=== PATIENT | female | born 1975 | race Caucasian/White ===

== ENCOUNTER 2019-01-24 17:38 | Outpatient (RCR) | payer MEDICARE, MEDICAID, SELFPAY ==
--- NOTE | 2019-03-27 17:23 | PCPTNOTE ---
03/27/19 -patient has not been to therapy in several weeks. as of this date, patient will be dc'd from skilled PT services and all progress toward goals will be taken from their most recent evaluation/note. BERTHA
== END 2019-04-24 23:59 | disposition home or self-care (01) ==
LOC: CHSPT 17:38
PROVIDERS: Visit Provider Internal Medicine Infectious Disease
DX: Z53.8 Procedure and treatment not carried out for other reasons (principal)
CPT/HCPCS: 99199

== ENCOUNTER 2019-05-23 11:31 | Emergency (ER) | payer MEDICARE, MEDICAID, SELFPAY ==
--- NOTE | ~2019-05-23 | CT_ITS ---
EXAMINATION: CT brain wo con EXAM DATE: 05/23/2019 12:42 INDICATION: Right hemiparesis. Dizziness. TECHNIQUE: Spiral CT of the head was performed without contrast. Axial, coronal and sagittal images were reviewed. The dose-length product (DLP) for this examination was 605.33 mGy-cm. The exposure w as tailored according to patient size, and iterative reconstruction (ASIR) was used as additional dos e reduction technique. Comparison is made to prior examination from 12/08/2015. FINDINGS: There is no acute intraparenchymal hemorrhage. No evidence of intraparenchymal brain mass lesion. No evidence of acute infarction. There is no mass effect or midline shift. The ventricles are normal in size. There are no extra-axial collections. There are no acute calvarial fractures. T he orbits are unremarkable. Soft tissue is unremarkable. The visualized sinuses and mastoid air romel ls are well aerated. IMPRESSION: 1. No acute intracranial findings. Reviewed, dictated and finalized at location B. ATION ASSISTANT
[2019-05-23 11:49] VITALS: BP 155/94; PULSE 95; RESP 20; TEMP 36.8; O2SAT 95
[2019-05-23 11:51] LABS: Add Urine Microscopic? NO; Appearance Urine Clear (Clear); Bilirubin Urine Negative (Negative); Blood Urine Negative (Negative); Color Urine Yellow (Yellow); Glucose Urine UA Negative (Negative); Ketones Urine Negative (Negative); Leukocyte Esterase Ur Negative LEU/UL (Negative); Nitrate Urine Negative (Negative); Protein Urine Negative (Negative); Specific Grav Ur <= 1.005 (1.010-1.020); Urobilinogen Urine 0.2 mg/dL (0.2-1.0); pH Urine 5.5 (5.0-8.0)
[2019-05-23 11:56] LABS: Glucose Point of Care 97 (65-105)
--- NOTE | 2019-05-23 12:13 | ED.NEUROSD ---
HPI - Neuro Symptoms/Deficit General Chief Complaint: Neuro Symptoms/Deficit Stated Complaint: Think she has had a TIA this morning Time Seen by Provider: 05/23/19 12:14 Source: patient and RN notes reviewed Mode of arrival: ambulatory Limitations: no limitations History of Present Illness HPI Narrative: 43-year-old female presents with 3 hour history of right-sided weakness and thickening of her tongue. She said she also had some dizziness but no change in vision. She had similar episode 1 year ago and was seen by neurologist in [place]. She says she does not remember the workup that she had at that time but they told her she did not have seizures. Onset (ago): hour(s) (3) Time: 09:00 Location: right face, right arm and right leg History of same: Yes Severity: mild Quality: weak, numb, tingling and intermittent Relieving factors: none Exacerbating factors: none Context: gradual onset On Anticoagulants: No Associated symptoms: denies other symptoms Treatments Prior to Arrival: none Related Data Home Medications Medication Instructions Recorded Confirmed aripiprazole 10 mg PO DAILY 03/21/19 05/23/19 atorvastatin 40 mg PO DAILY 03/21/19 05/23/19 metformin 500 mg PO DAILY 03/21/19 05/23/19 prazosin 2 mg PO HS 03/21/19 05/23/19 topiramate 100 mg PO HS 03/21/19 05/23/19 hydrocodone-acetaminophen 1 tablet PO Q6H PRN 05/23/19 05/23/19 Allergies Allergy/AdvReac Type Severity Reaction Status Date / Time No Known Allergies Allergy Unverified 05/28/16 21:52 Review of Systems Review of Systems: All systems reviewed & are unremarkable except as noted in HPI and below PMFSH Past Medical History Medical History (Updated 05/23/19 @ 18:33 by Elias Rodriguez MD) Affective bipolar disorder HLD (hyperlipidemia) Surgical History Surgical History (Updated 05/23/19 @ 18:28 by Elias Rodriguez MD) H/O inguinal hernia repair H/O: hysterectomy History of appendectomy Hx of rotator cuff surgery Hx of tonsillectomy Course Course Emergency Course: I discussed that patient's findings and presentation with Dr. Silverio, neurologist in [place]. He recommended with negative workup in the emergency room and his prior workup consisting of carotid Dopplers and MRI of the brain which were both normal that she follow-up with her primary care physician. Vital Signs Vital signs: Vital Signs Temperature 36.8 C 05/23/19 11:49 Pulse Rate 95 05/23/19 11:49 Respiratory Rate 20 05/23/19 11:49 Blood Pressure 155/94 H 05/23/19 11:49 Pulse Oximetry 95 05/23/19 11:49 Temperature 36.8 C 05/23/19 11:49 Pulse Rate 76 05/23/19 14:12 Respiratory Rate 19 05/23/19 14:32 Blood Pressure 142/84 H 05/23/19 14:32 Pulse Oximetry 98 05/23/19 14:12 MDM - Neuro Symptoms/Deficit Lab Data Result diagrams: 05/23/19 12:39 05/23/19 12:39 Labs: Lab Results 05/23/19 05/23/19 05/23/19 Range/Units 11:46 11:54 12:39 WBC (4.8-10.8) K/mm3 RBC (4.20-5.40) M/mm3 Hgb (12.0-15.0) g/dL Hct (35.0-49.0) % MCV (78.0-102.0) fL MCH (27.0-31.0) pg MCHC (32.0-36.0) g/dL RDW (11.6-14.4) % Plt Count (150-420) K/mm3 MPV (9.2-11.8) fl Immature Gran % (Auto) (0.0-0.0) % Neut % (Auto) (50.0-70.0) % Lymph % (Auto) (18.0-42.0) % Barber % (Auto) (2.0-11.0) % Eos % (Auto) (1.0-6.0) % Baso % (Auto) (0.0-1.0) % Lymph # (Auto) (1.10-4.50) K/mm3 Barber # (Auto) (0.10-0.90) K/mm3 Eos # (Auto) (0.02-0.50) K/mm3 Baso # (Auto) (0.00-0.10) K/mm3 Abs Immat Gran (auto) (0.00-0.00) K/mm3 Absolute Neuts (auto) (1.7-7.2) K/mm3 Absolute Nucleated RBC (0.00-0.00) K/mm3 Nucleated RBC % (0-0.0) % Sodium (136-145) mmol/L Potassium (3.5-5.1) mmol/L Chloride (98-108) mmol/L Carbon Dioxide (21-32) mmol/L Anion Gap (7-16) mmol/L BUN (7-18) mg/dL Creatinine (0.55-1.02)
[2019-05-23 12:48] LABS: Basophils Absolute Auto 0.06 K/mm3 (0.00-0.10); Basophils Percent Auto 0.6 % (0.0-1.0); Eosinophils Absolute Auto 0.27 K/mm3 (0.02-0.50); Eosinophils Percent Auto 2.8 % (1.0-6.0); Hematocrit 43.1 % (35.0-49.0); Hemoglobin 14.7 g/dL (12.0-15.0); Immature Granulocyte Absolute 0.06 K/mm3 (0.00-0.00); Immature Granulocyte Percent A 0.6 % (0.0-0.0); Lymphocytes Absolute Auto 3.26 K/mm3 (1.10-4.50); Lymphocytes Percent Auto 33.7 % (18.0-42.0); Mean Corpuscular HGB Conc 34.1 g/dL (32.0-36.0); Mean Corpuscular Hemoglobin 29.3 pg (27.0-31.0); Mean Corpuscular Volume 85.9 fL (78.0-102.0); Mean Platelet Volume 10.4 fl (9.2-11.8); Monocytes Absolute Auto 0.52 K/mm3 (0.10-0.90); Monocytes Percent Auto 5.4 % (2.0-11.0); Neutrophils Absolute Auto 5.5 K/mm3 (1.7-7.2); Neutrophils Percent Auto 56.9 % (50.0-70.0); Platelet Count Result 301 K/mm3 (150-420); Red Blood Count 5.02 M/mm3 (4.20-5.40); Red Cell Distribution Width 13.5 % (11.6-14.4); White Blood Count 9.7 K/mm3 (4.8-10.8)
[2019-05-23 13:15] LABS: Alanine Aminotransferase 29 U/L (14-59); Albumin Level 3.7 g/dL (3.4-5.0); Alkaline Phosphatase 87 U/L (46-116); Anion Gap 15.9 mmol/L (7-16); Aspartate Amino Transferase 16 U/L (15-37); Bilirubin,Total 0.5 mg/dL (0.00-1.00); Blood Urea Nitrogen 8 mg/dL (7-18); Calcium 9.4 mg/dL (8.5-10.1); Carbon Dioxide 24 mmol/L (21-32); Chloride 106 mmol/L (98-108); Estimated Glomerular Filt Rate > 60; Glucose 90 mg/dL (70-99); Osmolality Calculated 292 mOsm/kg (285-295); Potassium 3.9 mmol/L (3.5-5.1); Sodium 142 mmol/L (136-145); Total Protein 7.5 g/dL (6.4-8.2)
[2019-05-23 13:17] LABS: Thyroid Stimulating Hormone 1.74 uIU/mL (0.36-3.74)
--- NOTE | 2019-05-23 14:01 | PC.NURSE ---
DR GARNER, NEUROLOGY CALLED FOR CONSULT
[2019-05-23] MEDS: ASPIRIN 81 MG CHEWABLE TABLET 324 MG PO (14:05)
[2019-05-23 14:12] VITALS: BP 157/88; PULSE 76; O2SAT 98
[2019-05-23 14:32] VITALS: BP 142/84; RESP 19
== END 2019-05-23 14:33 | disposition home or self-care (01) ==
PROVIDERS: Emergency Provider Emergency Medicine
DX: R20.2 Paresthesia of skin (principal); E78.5 Hyperlipidemia, unspecified
CPT/HCPCS: 36415; 70450; 80053; 81003; 84443; 85025; 99283; 99284; A9270

== ENCOUNTER 2019-05-28 08:06 | Outpatient (RCR) | payer MEDICARE, MEDICAID, SELFPAY ==
--- NOTE | 2019-05-28 07:44 | PTOPEVAL ---
Thank you for referring this patient to [facility]. Please review, sign, date and return this plan of care [facility]. I agree with and certify that the following plan of care is medically necessary. Referring Physician Date Admitting Provider: Attending Provider: Emile Chacon, Referring Provider: *PT Outpatient Evaluation Start: 05/28/19 07:05 Freq: Status: Active Protocol: Document 05/28/19 07:[address] [facility] (Rec: 05/28/19 07:[address] [facility] [id number]) Therapy Assessment Status Assessment Status Assessment Status Evaluation Outpatient Past Medical History Neurological History Hx Transient Ischemic Attacks (TIA) Yes Cardiovascular History Hx Hypercholesterolemia Yes Gastrointestinal History Hx Appendectomy Yes Hx Hernia Yes Musculoskeletal History Hx Orthopedic Surgery Yes: LEFT ROTATOR CUFF HEENT History Hx Tonsillectomy Yes Reproductive History Hx Hysterectomy Yes Psychosocial History Hx Bipolar Disorder Yes Evaluation Information Problem Diagnosis s/p L RTC repair Onset 03/26/19 Additional Evaluation Detail quick dash = Subjective Information patient reports she has been Query Text:As Reported By Patient/ having pain in the L shoulder Family since summer of last year. she reports she had a rotator cuff repair of the L shoulder in March of this year. she reports she is still having a small amount of pain, but is improved since her surgery. she reports she is unable to reach behind her back, getting dressed, reaching for objects , lifting overhead. she reports she is on a 2-3lb lifting restriction. Prior Level of Function Comments Additional Prior Level of Function prior to surgery, she was Comments unable to reach behind her back, get dressed, or reach overhead due to pain and weakness in the L shoulder. Pain Assessment Timing of Pain Assessment Timing of Pain Assessment Assessment Pain Scale Pain Scale Used Numeric (1 - 10) Self Report Pain Assessment Left Shoulder(s) Reported Pain Level 5 Pain Description Dull Pain Frequency Acute,Continuous Current Pain Intensity 5 Lowest Pain Intensity 3 Greatest Pain Intensity
--- NOTE | 2019-05-29 09:13 | PCPTNOTE ---
05/29/19 - patient called and cancelled therapy this date due to feeling ill. VaughnTF
--- NOTE | 2019-06-02 07:57 | PCPTNOTE ---
patient called and cancelled appt for today. VAZQUEZ
--- NOTE | 2019-07-09 13:35 | PTOPEVAL ---
Thank you for referring Soumya Fuller to [facility]. Please review, sign, date and return this plan of care MATTHEW. I agree with and certify that the following plan of care is medically necessary. Referring Physician Date Admitting Provider: Attending Provider: Emile Chacon, Referring Provider: *PT Outpatient Evaluation Start: 05/28/19 07:05 Freq: Status: Active Protocol: Document 07/09/19 13:24 [facility] (Rec: 07/09/19 13:35 [facility] [email or web address]) Therapy Assessment Status Assessment Status Assessment Status Re-evaluation Outpatient Past Medical History Neurological History Hx Transient Ischemic Attacks (TIA) Yes Cardiovascular History Hx Hypercholesterolemia Yes Gastrointestinal History Hx Appendectomy Yes Hx Hernia Yes Musculoskeletal History Hx Orthopedic Surgery Yes: LEFT ROTATOR CUFF HEENT History Hx Tonsillectomy Yes Reproductive History Hx Hysterectomy Yes Psychosocial History Hx Bipolar Disorder Yes Evaluation Information Problem Diagnosis s/p left RTC repair Onset 03/26/19 Subjective Information Pt. reports that she can now Query Text:As Reported By Patient/ reach behind her back and wash Family her hair. She reports that nights are becoming more comfortable and she has decreased pain overall. She reports that she still notes that she is weak. she has trouble pouring a glass of tea or lifting items overhead or into the refidgerator. She reports that she would like to continue treatment focusing on strength. Pain Assessment Pain Scale Pain Scale Used Numeric (1 - 10) Self Report Pain Assessment Left Shoulder(s) Reported Pain Level 2 Lowest Pain Intensity 2 Greatest Pain Intensity 6 Pain Score Pain Score 2: Self Report Upper Extremity Range of Motion General Upper Extremity Range of Motion Gross Upper Extremity Range of Motion 138 degrees active left Comments shoulder flexion against gravity Pt. is able to reach the occiput with the left u.e. and reach to the upper lumbar region with combined extension and IR of the left shoulder. Upper Extremity Muscle Strength Testing General Upper
== END 2019-08-06 14:31 | disposition home or self-care (01) ==
LOC: CHSPT 08:06
PROVIDERS: PCP Family Medicine; Visit Provider Orthopaedic Surgery
DX: Z48.89 Encounter for other specified surgical aftercare (principal); S46.012D Strain of muscle(s) and tendon(s) of the rotator cuff of left shoulder, subsequent encounter
CPT/HCPCS: 97014; 97110; 97161; 97530; G0283

== ENCOUNTER 2019-10-07 08:25 | Outpatient (CLI) | payer MEDICARE, MEDICAID, SELFPAY ==
--- NOTE | ~2019-10-07 | MM_ITS ---
EXAMINATION: MM screening mariano BI w gaurang HISTORY: Screening mammogram, family history of breast cancer in her mother. TECHNIQUE: Craniocaudal and mediolateral oblique 3-D tomosynthesis images were obtained and synthetic 2-D images were generated. CAD analysis was submitted and interpreted. COMPARISON: No prior mammogram is available for comparison at this institution. BREAST PARENCHYMAL COMPOSITION: There are scattered areas of fibroglandular density. FINDINGS: RIGHT BREAST: There are masses in the posterior third of the upper breast at the 12:00 location and t he middle/posterior third of the upper inner breast. LEFT BREAST: There is no evidence of suspicious mass, calcification, or architectural distortion to s uggest malignancy. IMPRESSION: 1. Right breast masses which may represent the patient's baseline however no comparison is currently available. 2. Comparison with prior mammograms is necessary. BI-RADS Category 0: Incomplete: Needs comparison with prior mammograms. Reviewed, dictated and finalized at location A. IMPRESSION: 1. Right breast masses which may represent the patient's baseline however no co mparison is currently available. 2. Comparison with prior mammograms is necessary. BI-RADS Category 0: Incomplete: Needs comparison with prior mammograms.
== END 2019-10-07 08:26 | disposition home or self-care (01) ==
PROVIDERS: PCP Family Medicine; Visit Provider Family Medicine
DX: Z12.31 Encounter for screening mammogram for malignant neoplasm of breast (principal)
CPT/HCPCS: 77063; 77067

== ENCOUNTER 2019-11-10 14:12 | Outpatient (NON) | payer MEDICARE, SELFPAY ==
[2019-11-10 14:22] LABS: Hematocrit 43.8 % (35.0-49.0); Hemoglobin 14.4 g/dL (12.0-15.0); Mean Corpuscular HGB Conc 32.9 g/dL (32.0-36.0); Mean Corpuscular Hemoglobin 29.1 pg (27.0-31.0); Mean Corpuscular Volume 88.5 fL (78.0-102.0); Mean Platelet Volume 10.4 fl (9.2-11.8); Platelet Count Result 323 K/mm3 (150-420); Red Blood Count 4.95 M/mm3 (4.20-5.40); Red Cell Distribution Width 13.1 % (11.6-14.4); White Blood Count 10.3 K/mm3 (4.8-10.8)
[2019-11-10 14:46] LABS: Alanine Aminotransferase 36 U/L (14-59); Albumin Level 3.5 g/dL (3.4-5.0); Alkaline Phosphatase 93 U/L (46-116); Anion Gap 10 mmol/L (8-16); Aspartate Amino Transferase 25 U/L (15-37); Bilirubin,Total 0.5 mg/dL (0.00-1.00); Blood Urea Nitrogen 10 mg/dL (7-18); Calcium 9.9 mg/dL (8.5-10.1); Carbon Dioxide 26 mmol/L (21-32); Chloride 104 mmol/L (98-108); Estimated Glomerular Filt Rate 54; Glucose 124 mg/dL (70-99); Osmolality Calculated 290 mOsm/kg (285-295); Potassium 4.2 mmol/L (3.5-5.1); Sodium 140 mmol/L (136-145); Total Protein 7.1 g/dL (6.4-8.2)
[2019-11-11 00:09] LABS: SARS-CoV-2 RNA PCR Negative
== END 2019-11-10 14:13 ==
PROVIDERS: Visit Provider Family Medicine
DX: J06.9 Acute upper respiratory infection, unspecified (principal); R73.09 Other abnormal glucose; R69 Illness, unspecified; Z20.828 Contact with and (suspected) exposure to other viral communicable diseases
CPT/HCPCS: 36415; 80053; 83036; 85027; 87635; C9803; U0003

== ENCOUNTER 2020-01-20 20:14 | Observation (INO) | payer MEDICARE, MEDICAID, SELFPAY ==
[2020-01-20] VITALS (7 sets, daily range): BP systolic 103–161; BP diastolic 49–84; PULSE 73–113; RESP 14–22; TEMP 36.6–36.8; O2SAT 95–98; BMI 45.2
--- NOTE | ~2020-01-20 | XR_ITS ---
EXAMINATION: XR chest 1V portable 01/20/2020 21:46 INDICATION: Sudden onset. Shortness of breath. Chest pressure. PROCEDURE: AP portable chest COMPARISON: Comparison to multiple prior studies sequentially, with oldest reviewed study dated 09/2015. FINDINGS: The lungs are clear. The cardiomediastinal silhouette is within normal limits. There are no pleural effusions. There is no pneumothorax suspected. IMPRESSION: 1: NO ACUTE CARDIOPULMONARY DISEASE. Reviewed, dictated and finalized at location A.
--- NOTE | 2020-01-20 20:20 | ED.SOB ---
HPI - SOB/Dyspnea General Chief Complaint: Shortness of Breath/Dyspnea Stated Complaint: SOB Time Seen by Provider: 01/20/20 20:27 Source: patient Mode of arrival: ambulatory Limitations: no limitations History of Present Illness HPI Narrative: 44-year-old woman with a history of smoking comes in today complaining of heaviness in her chest like an elephant sitting on my chest and shortness of breath that started approximately 1 hour ago. Patient states for last 3 days she has not been feeling well and has had nausea. She denies fever, vomiting, diarrhea, abdominal pain, sore throat, rhinorrhea, headache and rash. Her has had vomiting for last few days. She works in a [employer] MD elicited complaint: shortness of breath and chest pain Onset (ago): hour(s) (1) Context: recent illness Severity: moderate Exacerbating factors: exertion Relieving factors: rest Associated symptoms: chest pain and nausea/vomiting Treatment prior to arrival: none Related Data Home oxygen amount: none Home Medications Medication Instructions Recorded Confirmed atorvastatin 40 mg PO DAILY 03/21/19 01/20/20 topiramate 100 mg PO HS 03/21/19 01/20/20 lamotrigine 50 mg PO DAILY 01/20/20 01/20/20 lorazepam 1 mg PO PRN 01/20/20 01/20/20 Allergies Allergy/AdvReac Type Severity Reaction Status Date / Time No Known Allergies Allergy Verified 11/10/19 12:11 Review of Systems Constitutional: Constitutional: Denies chills, Reports fatigue, Denies fever(s) and Denies weakness Eyes: Eyes: Denies change in vision and Denies photophobia ENT: Denies dysphagia, Denies nasal congestion and Denies sore throat Cardiovascular: Cardiovascular: Reports chest pain and Denies radiating jaw, neck or arm pain Respiratory: Respiratory: Denies cough, Reports dyspnea and Denies wheezing Gastrointestinal: Gastrointestinal: Denies abdominal pain, Denies diarrhea, Reports nausea and Denies vomiting Genitourinary: Genitourinary: Denies nocturia and Denies dysuria Musculoskeletal: Musculoskeletal: Denies arthralgias and Denies joint swelling Integumentary/Breasts: Skin/Breast: Denies pruritus, Denies erythema and Denies rash Neurologic: Denies vertigo, Denies dizziness and Denies syncope Hematologic/Lymphatic: Hematologic/Lymphatic: Denies easy bleeding and Denies easy bruising Allergic/Immunologic: Allergic/Immunologic: Denies lip swelling and Denies tongue swelling PMFSH Past Medical History Medical History (Updated 01/20/20 @ 21:56 by Sarabjit Zambrano MD) Affective bipolar disorder History of TIA (transient ischemic attack) HLD (hyperlipidemia) Obesity Surgical History Surgical History H/O inguinal hernia repair H/O: hysterectomy History of appendectomy Hx of rotator cuff surgery Hx of tonsillectomy Social History Social History Smoking status: Former smoker Tobacco type: cigarettes Additional smoking assessment comments: Quit 2019. Additional living arrangements comments: . 3 children. Additional occupation/education comments: On disability. Exam Const: General: alert Nutritional Appearance: obese Orientation/consciousness: patient oriented x3 Limitations: no limitations Other: Mild acute distress. HENMT: Head: normal to inspection Ears: external ears normal, TM's normal bilaterally and EAC's normal General nose exam: Normal nares present Face and sinus: normal facial exam Mouth: Yes moist mucous membranes Throat: posterior oropharynx normal Eyes: Conjunctivae: conjunctivae normal Pupils: Equal, round and reactive pupils present EOM: EOMs intact bilaterally Neck: Neck: normal visual inspection and no lymphadenopathy Resp: Effort & Inspection: normal respiratory effort and not labored Auscultation: clear to auscultation bilaterally, no rales, no rhonchi and no wheezes Cardio
--- NOTE | 2020-01-20 20:29 | ECG_ITS ---
Measurements Intervals [place] Rate: 94 P: 52 HI: 166 QRS: 68 QRSD: 91 T: 48 QT: 368 QTc: 462 Interpretive Statements SINUS RHYTHM DELAYED PRECORDIAL R/S TRANSITION BASELINE WANDER- AVF BORDERLINE ECG Electronically Signed On 01-21-2020 6:54:51 CDT by Victor Manuel Asher D.O.
[2020-01-20] MEDS: ASPIRIN 81 MG CHEWABLE TABLET 324 MG PO (20:46)
[2020-01-20] MEDS: NITROGLYCERIN SL 0.4 MG TABLET (20:46)
[2020-01-20 21:13] LABS: Basophils Absolute Auto 0.06 K/mm3 (0.00-0.10); Basophils Percent Auto 0.5 % (0.0-1.0); Eosinophils Absolute Auto 0.23 K/mm3 (0.02-0.50); Eosinophils Percent Auto 1.9 % (1.0-6.0); Hemoglobin 13.6 g/dL (12.0-15.0); Immature Granulocyte Absolute 0.07 K/mm3 (0.00-0.00); Immature Granulocyte Percent A 0.6 % (0.0-0.0); Lymphocytes Absolute Auto 4.28 K/mm3 (1.10-4.50); Mean Corpuscular HGB Conc 33.2 g/dL (32.0-36.0); Mean Corpuscular Hemoglobin 28.9 pg (27.0-31.0); Mean Corpuscular Volume 87.2 fL (78.0-102.0); Mean Platelet Volume 9.8 fl (9.2-11.8); Monocytes Absolute Auto 0.82 K/mm3 (0.10-0.90); Monocytes Percent Auto 6.9 % (2.0-11.0); Neutrophils Absolute Auto 6.4 K/mm3 (1.7-7.2); Neutrophils Percent Auto 54.1 % (50.0-70.0); Platelet Count Result 312 K/mm3 (150-420); Red Cell Distribution Width 13.8 % (11.6-14.4); White Blood Count 11.9 K/mm3 (4.8-10.8)
[2020-01-20 21:20] LABS: Add Urine Microscopic? YES; Appearance Urine Clear (Clear); Bilirubin Urine Negative (Negative); Blood Urine Negative (Negative); Color Urine Yellow (Yellow); Glucose Urine UA Trace (Negative); Ketones Urine Negative (Negative); Leukocyte Esterase Ur Negative LEU/UL (Negative); Nitrate Urine Negative (Negative); Protein Urine Negative (Negative); Specific Grav Ur <= 1.005 (1.010-1.020); Urobilinogen Urine 0.2 mg/dL (0.2-1.0)
[2020-01-20 21:27] LABS: D Dimer 0.33 mg/L (0.19-0.50); Partial Thromboplastin Time 26.1 SEC (22.3-31.6)
[2020-01-20 21:29] LABS: RBC Urine 0-2 /hpf (0-2); WBC Urine 0-3 /hpf (0-3)
[2020-01-20 21:30] LABS: Bacteria Urine Trace /hpf; Squamous Epithelial Cell Urine Few /hpf (Few)
[2020-01-20 21:30] LABS: Alanine Aminotransferase 27 U/L (14-59); Albumin Level 3.3 g/dL (3.4-5.0); Alkaline Phosphatase 74 U/L (46-116); Anion Gap 17 mmol/L (8-16); Aspartate Amino Transferase 10 U/L (15-37); BNP 20.6 pg/mL (0-100); Bilirubin,Total 0.3 mg/dL (0.00-1.00); Blood Urea Nitrogen 5 mg/dL (7-18); Calcium 9.1 mg/dL (8.5-10.1); Carbon Dioxide 19 mmol/L (21-32); Chloride 108 mmol/L (98-108); Estimated CRCL calculation 103 ml/min; Estimated Glomerular Filt Rate > 60; Glucose 111 mg/dL (70-99); Osmolality Calculated 296 mOsm/kg (285-295); Potassium 3.5 mmol/L (3.5-5.1); Sodium 144 mmol/L (136-145); Total Protein 6.7 g/dL (6.4-8.2)
[2020-01-20 21:31] LABS: Troponin I < 0.02 ng/mL (0.00-0.056)
--- NOTE | 2020-01-20 21:56 | PC.NURSE ---
RN REQUESTED OBS ROOM, COVID PENDING, FROM SHELLIE WRIGHT RN. ROOM 210 PROVIDED. REGISTRATION NOTIFIED.
--- NOTE | 2020-01-20 22:05 | PC.NURSE ---
TELEPHONE REPORT PROVIDED TO DERICK KEN
--- NOTE | 2020-01-20 23:32 | PC.NURSE ---
Admitted for chest pain, due to complaint of SOB patient was swabbed for covid 19 and is on droplet isolation, patient educated on isolation practice, oriented to room, some chest pressure but no chest pain per patient, placed on telemetry and noted SR without ectopy, side rails up and no risk of fall identified, call light and use explained to patient
[2020-01-20] MEDS: PANTOPRAZOLE SODIUM IV 40 MG VIAL IV PUSH (23:48)
[2020-01-21] VITALS: PULSE 80
--- NOTE | 2020-01-21 00:14 | PC.NURSE ---
Ativan 1 mg given for sleep, denies chest pain
--- NOTE | 2020-01-21 01:26 | PC.NURSE ---
Awaiting troponin results for 1 am draw, no chest pain, telemetry SR
[2020-01-21 01:46] LABS: Troponin I < 0.02 ng/mL (0.00-0.056)
--- NOTE | 2020-01-21 02:38 | PC.NURSE ---
No complaints voiced, telemetry SR 70's no ectopy noted,
--- NOTE | 2020-01-21 03:20 | PC.NURSE ---
Telemetry SR, no evidence of chest pain, resting well between care
[2020-01-21 04:00] VITALS: BP 121/77; PULSE 74; PULSE 79; RESP 18; TEMP 36.3; O2SAT 97
[2020-01-21 05:49] LABS: Basophils Absolute Auto 0.07 K/mm3 (0.00-0.10); Basophils Percent Auto 0.7 % (0.0-1.0); Eosinophils Absolute Auto 0.34 K/mm3 (0.02-0.50); Eosinophils Percent Auto 3.6 % (1.0-6.0); Hematocrit 39.1 % (35.0-49.0); Hemoglobin 12.7 g/dL (12.0-15.0); Immature Granulocyte Absolute 0.08 K/mm3 (0.00-0.00); Immature Granulocyte Percent A 0.8 % (0.0-0.0); Lymphocytes Absolute Auto 4.14 K/mm3 (1.10-4.50); Lymphocytes Percent Auto 43.4 % (18.0-42.0); Mean Corpuscular HGB Conc 32.5 g/dL (32.0-36.0); Mean Corpuscular Hemoglobin 28.7 pg (27.0-31.0); Mean Corpuscular Volume 88.3 fL (78.0-102.0); Monocytes Absolute Auto 0.58 K/mm3 (0.10-0.90); Monocytes Percent Auto 6.1 % (2.0-11.0); Neutrophils Absolute Auto 4.3 K/mm3 (1.7-7.2); Neutrophils Percent Auto 45.4 % (50.0-70.0); Platelet Count Result 282 K/mm3 (150-420); Red Blood Count 4.43 M/mm3 (4.20-5.40); Red Cell Distribution Width 13.9 % (11.6-14.4); White Blood Count 9.6 K/mm3 (4.8-10.8)
[2020-01-21 06:07] LABS: Alanine Aminotransferase 23 U/L (14-59); Albumin Level 2.9 g/dL (3.4-5.0); Alkaline Phosphatase 70 U/L (46-116); Anion Gap 10 mmol/L (8-16); Aspartate Amino Transferase 10 U/L (15-37); Bilirubin,Total 0.3 mg/dL (0.00-1.00); Blood Urea Nitrogen 6 mg/dL (7-18); Calcium 9.2 mg/dL (8.5-10.1); Carbon Dioxide 24 mmol/L (21-32); Chloride 107 mmol/L (98-108); Estimated CRCL calculation 100 ml/min; Estimated Glomerular Filt Rate > 60; Glucose 102 mg/dL (70-99); Osmolality Calculated 289 mOsm/kg (285-295); Potassium 4.1 mmol/L (3.5-5.1); Sodium 141 mmol/L (136-145); Total Protein 6.1 g/dL (6.4-8.2)
[2020-01-21 06:08] LABS: Troponin I < 0.02 ng/mL (0.00-0.056)
--- NOTE | 2020-01-21 07:00 | ECG_ITS ---
Measurements Intervals [place] Rate: 66 P: 55 [place]: 186 QRS: 44 QRSD: 108 T: 51 QT: 404 QTc: 426 Interpretive Statements SINUS RHYTHM DELAYED PRECORDIAL R/S TRANSITION BORDERLINE ECG Electronically Signed On 01-21-2020 6:57:20 CDT by Victor Manuel Asher D.O.
[2020-01-21 08:00] VITALS: BP 128/74; PULSE 78; PULSE 84; RESP 20; TEMP 37.2; O2SAT 97
--- NOTE | 2020-01-21 08:08 | PM.SD ---
Same Day Admit/Disch: HPI History of Present Illness Chief complaint: chest pressure dyspnea Narrative: Soumya Fuller is a 44 year old female admitted under observation for shortness of breath and chest pain. This morning patient states her breathing is a little bit better and her chest pain has improved to a 5/10. Patient has been on room air SpO2 greater than 95%, hematology looks good, chemistry looks good, negative serial troponin, 2 EKGs showed sinus rhythm, COVID-19 results pending. [facility]LY [facility] Past Medical History Medical History Affective bipolar disorder History of TIA (transient ischemic attack) HLD (hyperlipidemia) Obesity Surgical History Surgical History H/O inguinal hernia repair H/O: hysterectomy History of appendectomy Hx of rotator cuff surgery Hx of tonsillectomy Social History Social History Smoking packs per day: 0.5 Smoking cigarettes per day: 10.0 Smoking status: Current every day smoker Tobacco type: cigarettes Second hand tobacco smoke exposure: Yes Additional smoking assessment comments: Quit 2019. Alcohol intake: never Substance use: never Substance use type: does not use Additional living arrangements comments: . 3 children. Additional occupation/education comments: On disability. Gender identity (if verbalized by the patient): Female Spiritual care concerns: No Same Day Admit/Disch: Med Pre-admit Medications Home Medications Medication Instructions Recorded Confirmed Type atorvastatin 40 mg PO DAILY 03/21/19 01/20/20 History topiramate 100 mg PO HS 03/21/19 01/20/20 History lamotrigine 50 mg PO DAILY 01/20/20 01/20/20 History lorazepam 1 mg PO PRN 01/20/20 01/20/20 History azithromycin See Rx Instructions .ROUTE 01/21/20 Rx .COMPLEX #6 tablet Exam Const: General: cooperative, comfortable, no acute distress, awake and Physically active Nutritional Appearance: obese Resp: Effort & Inspection: normal respiratory effort, not labored and no nasal flaring Auscultation: clear to auscultation bilaterally (billable diminished due to body habitus) Cardio: Rate: regular rate Rhythm: regular rhythm Heart sounds: S1 normal heart sound present and S2 normal heart sound present GI: Auscultation: Hypoactive bowel sounds present Neuro: General: oriented to person, oriented to place and oriented to time (and events) Cranial nerves: Yes CN's II-XII intact bilaterally (grossly intact) Cognition (Neuro): normal cognition Speech: normal speech Extrem: General: normal to inspection and no edema DS: Data Data Completed and Pending Labs on day of discharge: Labs from last 24 hours 01/21/20 01/21/20 01/21/20 05:42 05:42 01:21 WBC 9.6 RBC 4.43 Hgb 12.7 Hct 39.1 MCV 88.3 MCH 28.7 MCHC 32.5 RDW 13.9 Plt Count 282 MPV 10.0 Immature Gran % (Auto) 0.8 H Neut % (Auto) 45.4 L Lymph % (Auto) 43.4 H Luna % (Auto) 6.1 Eos % (Auto) 3.6 Baso % (Auto) 0.7 Lymph # (Auto) 4.14 Luna # (Auto) 0.58 Eos # (Auto) 0.34 Baso # (Auto) 0.07 Abs Immat Gran (auto) 0.08 H Absolute Neuts (auto) 4.3 Absolute Nucleated RBC 0.00 Nucleated RBC % 0.0 PT INR APTT D-Dimer Sodium 141 Potassium 4.1 Chloride 107 Carbon Dioxide 24 Anion Gap 10 BUN 6 L Creatinine 0.81 Estim Creat Clear Calc 100 Estimated GFR > 60 Glucose 102 H Calculated Osmolality 289 Calcium 9.2 Total Bilirubin 0.3 AST 10 L ALT 23 Alkaline Phosphatase 70 Troponin I < 0.02 < 0.02 B-Natriuretic Peptide Total Protein 6.1 L Albumin 2.9 L Urine Color Urine Appearance Urine pH Ur Specific [place] Urine Protein Urine Glucose (UA) Urine Ketones Ur Blood (Man)
[2020-01-21] MEDS: ATORVASTATIN 40 MG TABLET PO (08:17)
[2020-01-21] MEDS: lamoTRIgine 100 MG TABLET 50 MG PO (09:22)
[2020-01-21 12:00] VITALS: PULSE 74
[2020-01-21 22:40] LABS: SARS-CoV-2 RNA PCR Negative
--- NOTE | 2020-01-23 14:39 | PC.NURSE ---
Unable to contact or discharge call back.
== END 2020-01-21 13:45 | disposition home or self-care (01) ==
LOC: CHSED 21:56 → CHS2ND 21:57
PROVIDERS: Admitting Provider Emergency Medicine; Emergency Provider Emergency Medicine; PCP Family Medicine; Visit Provider Emergency Medicine
DX: R07.89 Other chest pain (principal); R06.00 Dyspnea, unspecified; E78.5 Hyperlipidemia, unspecified; E66.9 Obesity, unspecified; F31.89 Other bipolar disorder; Z20.828 Contact with and (suspected) exposure to other viral communicable diseases; Z87.891 Personal history of nicotine dependence; Z86.73 Personal history of transient ischemic attack (TIA), and cerebral infarction without residual deficits
CPT/HCPCS: 36415; 71045; 80053; 81001; 83880; 84484; 85025; 85380; 85610; 85730; 87040; 87635; 93005; 96374; 99285; A9270; C9113; C9803; G0378; U0003

== ENCOUNTER 2020-02-16 13:48 | Outpatient (CLI) | payer MEDICARE, SELFPAY ==
[2020-02-17 01:18] LABS: SARS-CoV-2 RNA PCR Negative
== END 2020-02-16 13:49 | disposition home or self-care (01) ==
LOC: CHSLAB 13:50
PROVIDERS: PCP Nurse Practitioner Family; Visit Provider Nurse Practitioner Family
DX: R05 Cough (principal); Z20.828 Contact with and (suspected) exposure to other viral communicable diseases
CPT/HCPCS: 87635; C9803; U0003

== ENCOUNTER 2020-05-19 10:05 | Emergency (ER) | payer MEDICARE, MEDICAID, SELFPAY ==
--- NOTE | ~2020-05-19 | XR_ITS ---
EXAMINATION: XR elbow RT min 3V DATE: 05/19/2020 10:47 INDICATION: Right elbow pain post fall with inability to fully extend the elbow TECHNIQUE: Anteroposterior, oblique and lateral views of the right elbow were obtained. COMPARISON: None. FINDINGS: Alignment is normal. No fracture. Joint spaces are normal. There is a sail sign with displacement of the anterior fat pad consistent with the presence of a right elbow joint effusion. IMPRESSION: 1. Nonspecific right elbow joint effusion. No evident osseous abnormality. Reviewed, dictated and finalized at location A. ENGER CONDUCTOR
[2020-05-19 10:08] VITALS: BP 139/83; PULSE 83; RESP 16; TEMP 36.9; O2SAT 99
--- NOTE | 2020-05-19 10:24 | ED.UPPEXIN ---
HPI - Extremity Injury (Upper) General Chief Complaint: Extremity Injury, Upper Stated Complaint: arm injury Time Seen by Provider: 05/19/20 10:24 Source: patient Mode of arrival: ambulatory Limitations: no limitations History of Present Illness HPI narrative: 44-year-old woman comes in today complaining of right arm pain that started after she fell at home this morning. Patient states that she tripped and fell on her outstretched hand. She also has a abrasion of her left knee. Her last tetanus shot was 3 years ago. She denies numbness or tingling. She states that pain is mostly when she moves her elbow. complaint: injury to: right and elbow Onset (ago): hour(s) (1) Other injuries: LLE Place: home Severity: moderate Relieving factors: immobilization Exacerbating factors: movement of extremity Context: fall Related Data Home Medications Medication Instructions Recorded Confirmed atorvastatin 40 mg PO DAILY 03/21/19 05/19/20 topiramate 100 mg PO HS 03/21/19 05/19/20 lorazepam 1 mg PO PRN 01/20/20 05/19/20 aspirin 81 mg tablet,delayed 81 mg PO DAILY tablet 02/16/20 05/19/20 release lamotrigine 100 mg tablet 100 mg PO DAILY tablet 02/16/20 05/19/20 prazosin 2 mg capsule 2 mg PO DAILY cap 02/16/20 05/19/20 Allergies Allergy/AdvReac Type Severity Reaction Status Date / Time No Known Allergies Allergy Verified 02/16/20 13:16 Review of Systems Constitutional: Constitutional: Denies chills and Denies fever(s) Eyes: Eyes: Denies change in vision and Denies photophobia ENT: Denies dysphagia, Denies nasal congestion and Denies sore throat Cardiovascular: Cardiovascular: Denies chest pain and Denies radiating jaw, neck or arm pain Respiratory: Respiratory: Denies cough and Denies dyspnea Gastrointestinal: Gastrointestinal: Denies nausea and Denies vomiting Genitourinary: Genitourinary: Denies nocturia and Denies dysuria Musculoskeletal: Musculoskeletal: Denies arthralgias and Denies joint swelling Integumentary/Breasts: Skin/Breast: Denies pruritus, Denies erythema and Denies rash Neurologic: Denies vertigo, Denies dizziness and Denies syncope Hematologic/Lymphatic: Hematologic/Lymphatic: Denies easy bleeding and Denies easy bruising Allergic/Immunologic: Allergic/Immunologic: Denies lip swelling and Denies throat swelling PMFSH Past Medical History Medical History Affective bipolar disorder History of TIA (transient ischemic attack) HLD (hyperlipidemia) Hospital discharge follow-up Obesity Surgical History Surgical History H/O inguinal hernia repair H/O: hysterectomy History of appendectomy Hx of rotator cuff surgery Hx of tonsillectomy Social History Social History Smoking packs per day: 0.5 Smoking cigarettes per day: 10.0 Smoking status: Current every day smoker Tobacco type: cigarettes Second hand tobacco smoke exposure: Yes Additional smoking assessment comments: Quit 2018. Alcohol intake: never Substance use: never Substance use type: does not use Additional living arrangements comments: . 3 children. Additional occupation/education comments: On disability. Gender identity (if verbalized by the patient): Female Spiritual care concerns: No Exam Const: General: healthy appearing and alert Orientation/consciousness: patient oriented x3 Limitations: no limitations Other: Moderate acute distress. HENMT: Head: normal to inspection Face and sinus: normal facial exam Eyes: Conjunctivae: conjunctivae normal Pupils: Equal, round and reactive pupils present EOM: EOMs intact bilaterally Resp: Effort & Inspection: normal respiratory effort and not labored Auscultation: clear to auscultation bilaterally, no rales, no rhonchi and no wheezes Cardio: Rate: regular rate Rhythm
[2020-05-19] MEDS: HYDROcodone/acetaminophen (*CRX) 5-325 MG TABLET 1 TAB PO (10:46)
[2020-05-19 11:13] VITALS: BP 128/91; PULSE 87; RESP 18; O2SAT 99
== END 2020-05-19 11:14 | disposition home or self-care (01) ==
PROVIDERS: Emergency Provider Emergency Medicine; PCP Family Medicine
DX: S53.401A Unspecified sprain of right elbow, initial encounter (principal); S80.212A Abrasion, left knee, initial encounter; E78.5 Hyperlipidemia, unspecified; E66.9 Obesity, unspecified; F17.210 Nicotine dependence, cigarettes, uncomplicated; F31.89 Other bipolar disorder; Z86.73 Personal history of transient ischemic attack (TIA), and cerebral infarction without residual deficits; Z90.710 Acquired absence of both cervix and uterus; Z90.49 Acquired absence of other specified parts of digestive tract; W19.XXXA Unspecified fall, initial encounter
CPT/HCPCS: 73080; 99282; 99283; A4565; A9270

== ENCOUNTER 2020-05-21 19:04 | Emergency (ER) | payer MEDICARE, MEDICAID, SELFPAY ==
--- NOTE | ~2020-05-21 | XR_ITS ---
EXAMINATION: XR wrist RT min 3V DATE: 05/21/2020 20:11 INDICATION: Right wrist pain. TECHNIQUE: 4 views of right wrist were obtained. COMPARISON: None. FINDINGS: Bone alignment is normal. No fracture. Joint spaces are well maintained. IMPRESSION: 1. Normal right wrist. Reviewed, dictated and finalized at location A. PROGRAMMING PROFESSOR IMPRESSION: 1. Normal right wrist.
--- NOTE | ~2020-05-21 | XR_ITS ---
EXAMINATION: XR forearm RT 2V DATE: 05/21/2020 20:10 INDICATION: Right elbow and wrist pain. TECHNIQUE: 2 views of right forearm were obtained. COMPARISON: Right elbow radiographs 05/19/2020 FINDINGS: Bone alignment is normal. No fracture. Joint spaces are well maintained. There is no elbow joint effusion. IMPRESSION: 1. Normal right forearm. Reviewed, dictated and finalized at location A. E EPIDEMIOLOGIST IMPRESSION: 1. Normal right forearm.
[2020-05-21 19:22] VITALS: BP 140/90; PULSE 88; RESP 18; TEMP 37; O2SAT 95
--- NOTE | 2020-05-21 19:57 | ED_ITS ---
HPI - Extremity Injury (Upper) General Chief Complaint: Extremity Injury, Upper Stated Complaint: wrist swelling Time Seen by Provider: 05/21/20 19:45 Related Data Home Medications Medication Instructions Recorded Confirmed atorvastatin 40 mg PO DAILY 03/21/19 05/19/20 topiramate 100 mg PO HS 03/21/19 05/19/20 lorazepam 1 mg PO PRN 01/20/20 05/19/20 aspirin 81 mg tablet,delayed 81 mg PO DAILY tablet 02/16/20 05/19/20 release lamotrigine 100 mg tablet 100 mg PO DAILY tablet 02/16/20 05/19/20 prazosin 2 mg capsule 2 mg PO DAILY cap 02/16/20 05/19/20 Allergies Allergy/AdvReac Type Severity Reaction Status Date / Time No Known Allergies Allergy Verified 05/20/20 07:48 [facility]LY [facility] Past Medical History Medical History Affective bipolar disorder History of TIA (transient ischemic attack) HLD (hyperlipidemia) Hospital discharge follow-up Obesity Surgical History Surgical History H/O inguinal hernia repair H/O: hysterectomy History of appendectomy Hx of rotator cuff surgery Hx of tonsillectomy Social History Social History (Updated 05/20/20 @ 08:49 by Lynette Motley) Smoking status: Former smoker Tobacco type: cigarettes Second hand tobacco smoke exposure: Yes Additional smoking assessment comments: Quit 2019 Alcohol intake: never Substance use: never Substance use type: does not use Additional living arrangements comments: . 3 children. Additional occupation/education comments: On disability. Gender identity (if verbalized by the patient): Female Sexual Orientation (if Verbalized by the Patient): Straight or Heterosexual Spiritual care concerns: No Course Vital Signs Vital signs: Vital Signs Temperature 37.0 C 05/21/20 19:22 Pulse Rate 88 05/21/20 19:22 Respiratory Rate 18 05/21/20 19:22 Blood Pressure 140/90 05/21/20 19:22 Pulse Oximetry 95 05/21/20 19:22 Temperature 37.0 C 05/21/20 19:22 Pulse Rate 88 05/21/20 19:22 Respiratory Rate 18 05/21/20 19:22 Blood Pressure 140/90 05/21/20 19:22 Pulse Oximetry 95 05/21/20 19:22 Discharge Plan Discharge Clinical Impression: Arm pain Patient Disposition: Home, Self-Care Condition: Stable Instructions: Antibiotic Form, Arm Pain (ED) Additional Instructions: Follow up with family doctor soon Prescriptions: No Action atorvastatin 40 mg tablet 40 mg PO DAILY RF: 0 topiramate 100 mg tablet 100 mg PO HS RF: 0 lorazepam 1 mg tablet 1 mg PO PRN RF: 0 hydrocodone-acetaminophen 5-325 mg tablet 1 tablet PO Q6H PRN (Reason: pain) Qty: 8 RF: 0 lamotrigine 100 mg tablet 100 mg PO DAILY RF: 0 prazosin 2 mg capsule 2 mg PO DAILY RF: 0 aspirin 81 mg tablet,delayed release (DR/EC) 81 mg PO DAILY RF: 0 Follow-up/Referrals: Kody Dent DO [Primary Care Provider] - Time of Disposition: 20:06
[2020-05-21 20:12] VITALS: BP 140/89; PULSE 79; RESP 18
[2020-05-21 20:22] VITALS: BP 140/90; PULSE 88; RESP 18; TEMP 36.4; O2SAT 95
== END 2020-05-21 20:23 | disposition home or self-care (01) ==
PROVIDERS: Emergency Provider Emergency Medicine; PCP Family Medicine
DX: M79.601 Pain in right arm (principal); E78.5 Hyperlipidemia, unspecified
CPT/HCPCS: 73090; 73110; 99282; 99283

== ENCOUNTER 2020-05-22 08:44 | Outpatient (CLI) | payer MEDICARE, MEDICAID, SELFPAY ==
--- NOTE | ~2020-05-22 | MR_ITS ---
EXAMINATION: MR elbow RT wo con DATE: 05/22/2020 10:05 INDICATION: Right elbow pain. TECHNIQUE: Magnetic resonance imaging (MRI) of the right elbow was performed without intravenous cont rast. Sequences included coronal, axial, and sagittal PD-weighted FS FSE and coronal, axial, and sagi ttal PD-weighted FSE. COMPARISON: Right elbow radiographs 05/19/2020 FINDINGS: Osseous/other: Bone alignment is normal. There is a nondisplaced radial head fracture involving the anterior half of the articular surface. There is shallow partial-thickness cartilage loss of the ulnohumeral joint. Tendons: There is mild tendinopathy of the common extensor tendon and common flexor tendon. There is mild tacho ps tendinopathy. Tracheostomy is normal. Ligaments: Radial collateral ligament, lateral ulnar collateral ligament, and ulnar collateral ligament are inta ct. Cubital tunnel: The ulnar nerve demonstrates increased signal, consistent with neuropathy. Fluid: There is a small elbow joint effusion. IMPRESSION: 1. Nondisplaced radial head fracture. Reviewed, dictated and finalized at location A. N CREW MEMBER
== END 2020-05-22 08:45 | disposition home or self-care (01) ==
LOC: CHSIMG 08:46
PROVIDERS: PCP Family Medicine; Visit Provider Family Medicine
DX: M25.521 Pain in right elbow (principal); M25.421 Effusion, right elbow
CPT/HCPCS: 73221

== ENCOUNTER 2020-06-18 11:28 | Outpatient (CLI) | payer MEDICARE, SELFPAY ==
[2020-06-18 13:24] LABS: SARS-CoV-2 RNA PCR Negative (Negative)
== END 2020-06-18 11:29 | disposition home or self-care (01) ==
LOC: CHSLAB 11:31
PROVIDERS: PCP Family Medicine; Visit Provider Nurse Practitioner Family
DX: R43.2 Parageusia (principal); Z20.822 Contact with and (suspected) exposure to COVID-19
CPT/HCPCS: C9803; U0003; U0005

== ENCOUNTER 2020-12-07 19:01 | Emergency (ER) | payer MEDICARE, MEDICAID, SELFPAY ==
--- NOTE | ~2020-12-07 | CT_ITS ---
EXAMINATION: CT brain wo con DATE: 12/07/2020 20:14 INDICATION: Left posterior postcoital headache for 5 days TECHNIQUE: Computed tomography (CT) of the head was performed without intravenous contrast. The mA wa s adjusted according to patient size. Iterative reconstruction technique was employed. Exam dose: 60 5.33 mGy-cm total exam DLP. COMPARISON: May 23, 2019 CT brain FINDINGS: No intracranial mass lesion or hemorrhage or cerebrovascular accident is detected. No midli ne shift or mass effect effect. Normal bhandari-white matter differentiation. Normal size of the ventricl es. No subdural or epidural hematoma. The mastoid air cells and included paranasal sinuses are unremarkable. No fracture or bone destruction of the cranial vault IMPRESSION: No significant abnormality Reviewed, dictated and finalized at Location A. Reviewed, dictated and finalized at location A. IMPRESSION: No significant abnormality
[2020-12-07 19:44] VITALS: BP 150/102; PULSE 91; RESP 20; TEMP 37.1; O2SAT 97
[2020-12-07 20:05] LABS: Basophils Absolute Auto 0.08 K/mm3 (0.00-0.10); Basophils Percent Auto 0.9 % (0.0-1.0); Eosinophils Absolute Auto 0.28 K/mm3 (0.02-0.50); Eosinophils Percent Auto 3.3 % (1.0-6.0); Hematocrit 43.8 % (35.0-49.0); Hemoglobin 14.6 g/dL (12.0-15.0); Immature Granulocyte Absolute 0.04 K/mm3 (0.00-0.00); Immature Granulocyte Percent A 0.5 % (0.0-0.0); Lymphocytes Absolute Auto 3.81 K/mm3 (1.10-4.50); Mean Corpuscular HGB Conc 33.3 g/dL (32.0-36.0); Mean Corpuscular Hemoglobin 28.9 pg (27.0-31.0); Mean Corpuscular Volume 86.6 fL (78.0-102.0); Mean Platelet Volume 10.2 fl (9.2-11.8); Monocytes Absolute Auto 0.34 K/mm3 (0.10-0.90); Neutrophils Absolute Auto 3.9 K/mm3 (1.7-7.2); Neutrophils Percent Auto 46.3 % (50.0-70.0); Platelet Count Result 310 K/mm3 (150-420); Red Blood Count 5.06 M/mm3 (4.20-5.40); Red Cell Distribution Width 13.4 % (11.6-14.4); White Blood Count 8.5 K/mm3 (4.8-10.8)
[2020-12-07 20:17] LABS: Partial Thromboplastin Time 25.4 SEC (23.90-30.70); Prothrombin Time 10.3 Seconds (9.50-12.10)
[2020-12-07 20:18] LABS: Alanine Aminotransferase 24 U/L (14-59); Albumin Level 3.6 g/dL (3.4-5.0); Alkaline Phosphatase 75 U/L (46-116); Anion Gap 11 mmol/L (8-16); Aspartate Amino Transferase 24 U/L (15-37); Bilirubin,Total 0.3 mg/dL (0.00-1.00); Blood Urea Nitrogen 8 mg/dL (7-18); Calcium 9.8 mg/dL (8.5-10.1); Carbon Dioxide 24 mmol/L (21-32); Chloride 106 mmol/L (98-108); Estimated CRCL calculation 81 ml/min; Estimated Glomerular Filt Rate > 60; Glucose 132 mg/dL (70-99); Osmolality Calculated 292 mOsm/kg (285-295); Potassium 3.7 mmol/L (3.5-5.1); Sodium 141 mmol/L (136-145); Total Protein 7.2 g/dL (6.4-8.2)
[2020-12-07 20:20] LABS: CRP < 0.2 mg/dL (0.0-0.9)
[2020-12-07 20:23] LABS: SARS-CoV-2 Ag Negative (Negative)
[2020-12-07 20:28] LABS: Add Urine Microscopic? NO; Appearance Urine Clear (Clear); Bilirubin Urine Negative (Negative); Blood Urine Negative (Negative); Color Urine Light Yellow (Yellow); Glucose Urine UA Negative (Negative); Ketones Urine Negative (Negative); Leukocyte Esterase Ur Negative (Negative); Nitrate Urine Negative (Negative); Protein Urine Negative (Negative); Specific Grav Ur <= 1.005 (1.010-1.020); Urobilinogen Urine 0.2 mg/dL (0.2-1.0)
--- NOTE | 2020-12-07 20:50 | ED.HA ---
HPI - Headache General Chief Complaint: Dizziness <Sarabjit Zambrano MD - Last Filed: 12/08/20 03:04> Stated Complaint: fatigue/headaches/tingling and numbness toes and f <Sarabjit Zambrano MD - Last Filed: 12/08/20 03:04> Time Seen by Provider: 12/07/20 19:30 <Sarabjit Zambrano MD - Last Filed: 12/08/20 03:04> Source: patient <Sarabjit Zambrano MD - Last Filed: 12/08/20 03:04> Mode of arrival: ambulatory <Sarabjit Zambrano MD - Last Filed: 12/08/20 03:04> Limitations: no limitations <Sarabjit Zambrano MD - Last Filed: 12/08/20 03:04> History of Present Illness HPI Narrative: 45-year-old woman with a remote history of migraines comes in today complaining of a severe headache that started late on December 04 after intercourse. She states the maximal pain was within an hour and she has had severe pain since. Her pain abated somewhat until last night when her headache came back during intercourse. She states she has some tingling and numbness in her toes and feet and feels fatigued. She has had nausea and some mild neck stiffness but has had no vomiting, fever, cough or cold symptoms, sore throat, head injury, seizures, visual changes, weakness. She describes it as the worst headache of her life. It is at the left occiput and she first stated she folic some plain was leaking and later stated that felt like a mass there. <Sarabjit Zambrano MD - Last Filed: 12/08/20 03:04> MD elicited complaint: headache <Sarabjit Zambrano MD - Last Filed: 12/08/20 03:04> Pertinent past history: migraines <Sarabjit Zambrano MD - Last Filed: 12/08/20 03:04> Onset (ago): day(s) (3) <Sarabjit Zambrano MD - Last Filed: 12/08/20 03:04> Onset description: suddenly and during intercourse <Sarabjit Zambrano MD - Last Filed: 12/08/20 03:04> Location: left and occipital <Sarabjit Zambrano MD - Last Filed: 12/08/20 03:04> Severity: severe <Sarabjit Zambrano MD - Last Filed: 12/08/20 03:04> Quality & Timing: pressure, different than previous headaches and worst headache of life <Sarabjit Zambrano MD - Last Filed: 12/08/20 03:04> Exacerbating factors: none <Sarabjit Zambrano MD - Last Filed: 12/08/20 03:04> Relieving factors: nothing <Sarabjit Zambrano MD - Last Filed: 12/08/20 03:04> Context: occurred during intercourse <Sarabjit Zambrano MD - Last Filed: 12/08/20 03:04> Associated symptoms: nausea, neck stiffness, tingling and numbness <Sarabjit Zambrano MD - Last Filed: 12/08/20 03:04> Treatments prior to arrival: other ( Excedrin migraine.) <Sarabjit Zambrano MD - Last Filed: 12/08/20 03:04> Related Data Home Medications: Home Medications Medication Instructions Recorded Confirmed topiramate 50 mg PO TID 03/21/19 12/07/20 lorazepam 1 mg PO TID PRN 01/20/20 12/07/20 aspirin 81 mg tablet,delayed 81 mg PO DAILY tablet 02/16/20 12/07/20 release lamotrigine 100 mg tablet 100 mg PO DAILY tablet 02/16/20 12/07/20 prazosin 2 mg capsule 2 mg PO BID cap 02/16/20 12/07/20 <Sarabjit Zambrano MD - Last Filed: 12/08/20 03:04> Allergies/Adverse Reactions: Allergies Allergy/AdvReac Type Severity Reaction Status Date / Time No Known Allergies Allergy Verified 12/07/20 20:28 <Sarabjit Zambrano MD - Last Filed: 12/08/20 03:04> Review of Systems Constitutional: Constitutional: Denies chills, Reports fatigue, Denies fever(s) and Denies weakness <Sarabjit Zambrano MD - Last Filed: 12/08/20 03:04> Eyes: Eyes: Denies change in vision and Reports photophobia <Sarabjit Zambrano MD - Last Filed: 12/08/20 03:04> ENT: Denies nasal congestion and Denies sore throat <Sarabjit Zambrano MD - Last Filed: 12/08/20 03:04> Cardiovascular: Cardiovascular: Denies chest pain <Sarabjit Zambrano MD - Last Filed: 12/08/20 03:04> Respiratory: Respiratory: Denies cough and Denies dyspnea <Sarabjit Zambrano,
[2020-12-07 21:30] VITALS: PULSE 88; RESP 20; O2SAT 98
--- NOTE | 2020-12-07 21:35 | PC.NURSE ---
[address] DURBIN IN LP WITHOUT SUCCESS
--- NOTE | 2020-12-07 21:48 | PC.NURSE ---
2142 DR DURBIN SPOKE WITH NEUROLOGIST AT [facility] IN [place] DR MUNOZ PT PLACED ON WAITING LIST FOR [facility] AND [facility] IN [place]
[2020-12-07 22:11] VITALS: BP 139/87; PULSE 96; RESP 20; TEMP 36.6; O2SAT 96
--- NOTE | 2020-12-07 22:36 | PC.NURSE ---
2230 PT TAKEN TO FLOOR ER HOLD ROOM 204 REPORT GIVEN TO MOLLY SEPULVEDA
[2020-12-07] MEDS: SODIUM CHLORIDE 0.9% IV 1,000 ML 125 ML IV CONT (23:05)
[2020-12-07] MEDS: HYDROmorphone HCL INJ (*CRX) 2 MG/ML VIAL 0.5 MG IV PUSH ×2 (23:06→23:56)
[2020-12-07] MEDS: TOPIRAMATE 100 MG TABLET PO (23:55)
[2020-12-08 03:48] VITALS: BP 112/66; PULSE 96; RESP 20; TEMP 36.6; O2SAT 96
[2020-12-08] MEDS: SODIUM CHLORIDE 0.9% IV 1,000 ML 125 ML IV CONT (06:18)
[2020-12-08] MEDS: HYDROmorphone HCL INJ (*CRX) 2 MG/ML VIAL 0.5 MG IV PUSH (06:21)
--- NOTE | 2020-12-08 07:35 | PC.NURSE ---
[facility][note 3] called and claims they have no beds and and several in their er awaiting beds also. she claims there will be no bed anytime soon. will keep us on a list. jen aware of this and her request to go towards [facility] due to sister is test engineering manager of [employer] [facility].
--- NOTE | 2020-12-08 08:10 | PC.NURSE ---
talked with [facility] and there is a waiting list and they want to talk with phone sent to er
[2020-12-08 08:20] VITALS: BP 114/64; PULSE 72; RESP 16; TEMP 36.6; O2SAT 97
[2020-12-08] MEDS: KETOROLAC 30 MG/ML VIAL (*BKC) 60 MG IM (08:59)
[2020-12-08] MEDS: lamoTRIgine 100 MG TABLET PO (09:01)
[2020-12-08] MEDS: LORazepam (*CRX) 1 MG TABLET PO (09:02)
[2020-12-08] MEDS: PRAZOSIN HCL 1 MG CAPSULE 2 MG PO (09:02)
[2020-12-08] MEDS: TOPIRAMATE 25 MG TABLET 50 MG PO (09:02)
--- NOTE | 2020-12-08 09:53 | PC.NURSE ---
Pt states her GUADALUPE is a little better after the Tordol. Pt ate all of the clear liquid breakfast with no nausea or vomiting.
--- NOTE | 2020-12-08 14:44 | PC.NURSE ---
1100 erp here and talked with patient. increased diet. rosette rn 1240 decided head ache was some better but still in lower back of l head. wants to to go home. tolerated regular diet. erp made aware.
== END 2020-12-08 13:30 | disposition home or self-care (01) ==
LOC: CHSED 21:34 → CHS2ND 22:25
PROVIDERS: Emergency Provider Emergency Medicine; PCP Family Medicine
DX: G44.82 Headache associated with sexual activity (principal); Z20.822 Contact with and (suspected) exposure to COVID-19; E78.5 Hyperlipidemia, unspecified; Z87.891 Personal history of nicotine dependence; Z79.899 Other long term (current) drug therapy
CPT/HCPCS: 36415; 70450; 80053; 81003; 85025; 85610; 85730; 86140; 87426; 96361; 96372; 96374; 99283; 99284; A9270; C9803; J1170; J1885; J7030

== ENCOUNTER 2020-12-13 07:04 | Emergency (ER) | payer MEDICARE, MEDICAID, SELFPAY ==
--- NOTE | ~2020-12-13 | CT_ITS ---
EXAMINATION: CTA brain carotid EXAM DATE: 12/13/2020 08:35 INDICATION: Posterior headache for 8 days. TECHNIQUE: Noncontrast head CT. Spiral CTA of the carotid arteries was performed with intravenous i njection 100 cc of Omnipaque 350. Axial, coronal, sagittal reformatted images reviewed. Additional r eformatted images created on dedicated 3-D workstation. NASCET comparable standard used to assess th e degree of arterial stenosis. Spiral CT angiogram cerebral arteries performed with the same intrave nous injection of contrast. Source images of the brain CTA transferred to dedicated workstation for 3 -D rotational image creation. Coronal, sagittal maximum intensity pixel images also reviewed. The d ose-length product (DLP) for this examination was 1499.53 mGy-cm. The exposure was tailored accordi ng to patient size, and iterative reconstruction (ASIR) was used as additional dose reduction techniq ue. Comparison is made to prior examination from 12/07/2020. FINDINGS: There is mild bilateral carotid bulb plaque with 0% stenosis bilaterally. The left vertebra l artery is dominant. There is no carotid or vertebral basilar arterial dissection or fibromuscular dysplasia. There are no cerebral artery aneurysms. There is symmetric cerebral artery arborization. T he sagittal, transverse and sigmoid sinuses enhance normally, no venous sinus thrombosis. Internal ce rebral veins also enhance normally. There is no acute intraparenchymal hemorrhage. No evidence of intraparenchymal brain mass lesion. N o evidence of acute infarction. There is no mass effect or midline shift. There is no obstructive hyd rocephalus suspected. There are no extra-axial collections. Incidental Findings: Mild to moderate disc disease at C4-5, moderate neural foraminal stenosis.. IMPRESSION: 1. No acute carotid or intracranial findings. 2. Bilateral carotid 0% stenosis. Reviewed, dictated and finalized at location B.
[2020-12-13 07:30] VITALS: BP 156/82; PULSE 87; RESP 16; TEMP 36.8; O2SAT 96
[2020-12-13 08:12] LABS: Basophils Absolute Auto 0.1 K/mm3 (0.0-0.1); Basophils Percent Auto 0.6 % (0.2-1.2); Eosinophils Absolute Auto 0.3 K/mm3 (0-0.3); Eosinophils Percent Auto 3.6 % (0-4.4); Hematocrit 43.6 % (37.0-47.0); Hemoglobin 14.7 g/dL (12.0-15.0); Immature Granulocyte Absolute 0.03 K/mm3 (0.00-0.031); Immature Granulocyte Percent A 0.4 % (0-0.5); Lymphocytes Absolute Auto 2.85 K/mm3 (0.9-3.2); Lymphocytes Percent Auto 36.8 % (18.3-44.2); Mean Corpuscular HGB Conc 33.7 g/dl (32-36); Mean Corpuscular Hemoglobin 29.3 pg (26-34); Monocytes Absolute Auto 0.5 K/mm3 (0.1-0.6); Monocytes Percent Auto 6.5 % (2.6-8.5); Neutrophils Percent Auto 52.1 % (45.5-73.1); Platelet Count Result 316 k/mm3 (150-375); Red Blood Count 5.01 M/mm3 (4.2-5.4); Red Cell Distribution Width 13.7 % (11.5-14.5); White Blood Count 7.8 K/mm3 (4.5-10.0)
[2020-12-13 08:14] LABS: Alanine Aminotransferase 24 U/L (4-35); Albumin Level 4.4 g/dL (3.5-5.1); Alkaline Phosphatase 65 U/L (38-126); Anion Gap 9 mmol/L (8-16); Aspartate Amino Transferase 24 U/L (14-36); Bilirubin,Total 0.6 mg/dL (0.2-1.3); Blood Urea Nitrogen 11 mg/dL (7-17); Calcium 10.5 mg/dL (8.4-10.2); Carbon Dioxide 20 mmol/L (22-30); Chloride 109 mmol/L (98-107); Estimated CRCL calculation 97 ml/min; Estimated Glomerular Filt Rate > 60; Glucose 124 mg/dL (65-110); Potassium 3.8 mmol/L (3.4-5.0); Sodium 138 mmol/L (137-145)
[2020-12-13] MEDS: KETOROLAC 30 MG/ML VIAL (*BKC) IV PUSH (08:35)
[2020-12-13 08:38] LABS: INR 0.9; Prothrombin Time 12.3 Seconds (11.1-14.7)
[2020-12-13 08:39] LABS: Partial Thromboplastin Time 25.7 SECONDS (22.3-36.8)
[2020-12-13] MEDS: METOCLOPRAMIDE HCL INJ 10 MG/2 ML VIAL IV PUSH (08:39)
[2020-12-13] MEDS: diphenhydrAMINE HCl INJ 50 MG/ML VIAL 25 MG IV PUSH (08:44)
--- NOTE | 2020-12-13 09:20 | ED.HA ---
HPI - Headache General Chief Complaint: Headache Stated Complaint: GUADALUPE, R arm numbness, Chest pain Time Seen by Provider: 12/13/20 07:26 History of Present Illness HPI Narrative: Patient is a 45-year-old female who presents ER with headache. Posterior. Ongoing since 12/04/2020. Initial onset was after intercourse. She was seen at [facility]. She had a noncontrast CT scan of her brain performed. LP was attempted but unsuccessful. There is attempted transfer to another hospital however they were told her to be a 4-day wait and patient opted to go home. She reports headache has been persistent. Denies change in vision or hearing. No fevers or chills or sweats. No ear pain. She reports pain is over the mastoids bilaterally. Its pressure. Patient reports remote history of migraines. She takes Topamax. Patient does not report extremity weakness or numbness to me. Nor does she report chest pain. Related Data Home Medications Medication Instructions Recorded Confirmed topiramate 50 mg PO TID 03/21/19 12/07/20 lorazepam 1 mg PO TID PRN 01/20/20 12/07/20 aspirin 81 mg tablet,delayed 81 mg PO DAILY tablet 02/16/20 12/07/20 release lamotrigine 100 mg tablet 100 mg PO DAILY tablet 02/16/20 12/07/20 prazosin 2 mg capsule 2 mg PO BID cap 02/16/20 12/07/20 Allergies Allergy/AdvReac Type Severity Reaction Status Date / Time No Known Allergies Allergy Verified 12/13/20 08:05 Review of Systems Review of Systems: All systems reviewed & are unremarkable except as noted in HPI and below Constitutional: Constitutional: Denies chills, Denies fever(s) and Denies weakness Eyes: Eyes: Denies change in vision and Denies photophobia Gastrointestinal: Gastrointestinal: Denies nausea and Denies vomiting Neurologic: Denies dizziness, Reports headache(s), Denies focal weakness and Denies numbness [facility] Past Medical History Medical History Affective bipolar disorder History of TIA (transient ischemic attack) HLD (hyperlipidemia) Hospital discharge follow-up Obesity Surgical History Surgical History H/O inguinal hernia repair H/O: hysterectomy History of appendectomy Hx of rotator cuff surgery Hx of tonsillectomy Social History Social History Smoking status: Former smoker Tobacco type: cigarettes Second hand tobacco smoke exposure: Yes Additional smoking assessment comments: Quit 2019 Alcohol intake: never Substance use: never Substance use type: does not use Additional living arrangements comments: . 3 children. Additional occupation/education comments: On disability. Gender identity (if verbalized by the patient): Female Sexual Orientation (if Verbalized by the Patient): Straight or Heterosexual Spiritual care concerns: No Exam Narrative: GENERAL: Well-appearing, well-nourished, and in no acute distress. HEAD: Normocephalic, atraumatic. EYES: PERRL and EOMI. Neck: No midline tenderness. Mild discomfort at the insertion of the mastoids bilaterally without swelling or erythema. Range of motion intact. CHEST: Clear to auscultation. No respiratory distress. HEART: Regular rate and rhythm. Normal peripheral pulses. ABDOMEN: Soft, nontender, nondistended. EXTREMITIES: Normal range of motion. No edema. NEURO: No focal deficits. No slurred speech. Alert and oriented x3. PSYCH: Normal mood and affect. Course Course Emergency Course: Headache improving with Toradol/Reglan/Benadryl. Informed results of CT of the brain. Recommend follow-up as scheduled with PCP. Vital Signs Vital signs: Vital Signs Temperature 98.2 F 12/13/20 07:30 Pulse Rate 87 12/13/20 07:30 Respiratory Rate 16 12/13/20 07:30 Blood Pressure 156/82 H 12/13/20 07:30 Pulse Oximetry 96 12/13/20 07:30 Temperature 98.2
[2020-12-13 09:45] VITALS: BP 128/84; PULSE 99; RESP 16; O2SAT 100
== END 2020-12-14 04:27 | disposition home or self-care (01) ==
PROVIDERS: Emergency Provider Emergency Medicine
DX: R51.9 Headache, unspecified (principal); F31.9 Bipolar disorder, unspecified; Z86.73 Personal history of transient ischemic attack (TIA), and cerebral infarction without residual deficits; E78.5 Hyperlipidemia, unspecified; E66.9 Obesity, unspecified; Z68.41 Body mass index [BMI] 40.0-44.9, adult; Z87.891 Personal history of nicotine dependence; Z79.82 Long term (current) use of aspirin
CPT/HCPCS: 36415; 70496; 70498; 80053; 85025; 85610; 85730; 96374; 96375; 99284; J1200; J1885; J2765; Q9967

== ENCOUNTER 2020-12-15 11:11 | Outpatient (CLI) | payer MEDICARE, MEDICAID, SELFPAY ==
--- NOTE | ~2020-12-15 | XR_ITS ---
[id number] 12/15/2020 11:33 Indication: Neck pain Procedure: 4 view cervical spine Comparison: No prior studies for comparison. Findings: No fracture, subluxation or dislocation. Odontoid process within normal limits. No preverte bral soft tissue abnormality. There is mild multilevel uncinate degenerative change at C4-5 and C5-6. Mild facet hypertrophy. Impression: 1: No acute abnormality of the cervical spine. 2: Mild cervical spondylosis. Reviewed, dictated and finalized at location A. Impression: 1: No acute abnormality of the cervical spine. 2: Mild cervical spondylosis.
== END 2020-12-15 11:12 | disposition home or self-care (01) ==
LOC: CHSIMG 11:14
PROVIDERS: PCP Family Medicine; Visit Provider Nurse Practitioner Family
DX: M54.2 Cervicalgia (principal)
CPT/HCPCS: 72040

== ENCOUNTER 2021-05-16 15:08 | Outpatient (CLI) | payer MEDICARE, MEDICAID, SELFPAY ==
[2021-05-16 15:26] LABS: Basophils Absolute Auto 0.05 K/mm3 (0.00-0.10); Basophils Percent Auto 0.5 % (0.0-1.0); Eosinophils Absolute Auto 0.26 K/mm3 (0.02-0.50); Eosinophils Percent Auto 2.8 % (1.0-6.0); Hematocrit 42.2 % (35.0-49.0); Hemoglobin 13.7 g/dL (12.0-15.0); Immature Granulocyte Absolute 0.05 K/mm3 (0.00-0.00); Immature Granulocyte Percent A 0.5 % (0.0-0.0); Lymphocytes Absolute Auto 3.41 K/mm3 (1.10-4.50); Lymphocytes Percent Auto 37.1 % (18.0-42.0); Mean Corpuscular HGB Conc 32.5 g/dL (32.0-36.0); Mean Corpuscular Volume 89.4 fL (78.0-102.0); Mean Platelet Volume 9.9 fl (9.2-11.8); Monocytes Absolute Auto 0.43 K/mm3 (0.10-0.90); Monocytes Percent Auto 4.7 % (2.0-11.0); Neutrophils Percent Auto 54.4 % (50.0-70.0); Platelet Count Result 331 K/mm3 (150-420); Red Blood Count 4.72 M/mm3 (4.20-5.40); Red Cell Distribution Width 14.6 % (11.6-14.4); White Blood Count 9.2 K/mm3 (4.8-10.8)
[2021-05-16 15:58] LABS: Alanine Aminotransferase 30 U/L (14-59); Albumin Level 3.6 g/dL (3.4-5.0); Alkaline Phosphatase 71 U/L (46-116); Anion Gap 10 mmol/L (8-16); Aspartate Amino Transferase 17 U/L (15-37); Bilirubin,Total 0.3 mg/dL (0.00-1.00); Blood Urea Nitrogen 12 mg/dL (7-18); Calcium 9.6 mg/dL (8.5-10.1); Carbon Dioxide 23 mmol/L (21-32); Chloride 104 mmol/L (98-108); Estimated Glomerular Filt Rate > 60; Glucose 88 mg/dL (70-99); Osmolality Calculated 282 mOsm/kg (285-295); Potassium 4.1 mmol/L (3.5-5.1); Sodium 137 mmol/L (136-145)
== END 2021-05-16 15:09 | disposition home or self-care (01) ==
LOC: CHSLAB 15:10
PROVIDERS: PCP Family Medicine; Visit Provider Nurse Practitioner Family
DX: T14.8XXA Other injury of unspecified body region, initial encounter (principal); W55.81XA Bitten by other mammals, initial encounter
CPT/HCPCS: 36415; 80053; 85025

== ENCOUNTER 2021-07-31 15:09 | Observation (INO) | payer MEDICARE, MEDICAID, SELFPAY ==
[2021-07-31] VITALS (7 sets, daily range): BP systolic 126–152; BP diastolic 71–107; PULSE 69–82; RESP 16–20; TEMP 36.4–36.7; O2SAT 98–100; BMI 43.3
--- NOTE | ~2021-07-31 | MR_ITS ---
EXAMINATION: MR brain/brain stem wo/w con DATE: 08/01/2021 09:08 INDICATION: Right-sided hemiparesis TECHNIQUE: Magnetic resonance imaging (MRI) of the brain and brainstem was performed without and with 20 mL Multihance intravenous contrast. Sequences included sagittal and axial T1-weighted SE, axial d iffusion-weighted FS SE, axial T2*-weighted GRE, axial T2-weighted FLAIR, and axial T2-weighted FSE. Postcontrast axial and coronal T1-weighted SE was obtained. Apparent diffusion coefficient (ADC) maps were created. COMPARISON: Head CT and CT angiogram dated 07/31/2021 FINDINGS: There are no areas of restricted diffusion to suggest acute infarction. No intracranial hemorrhage or abnormal intracranial mass lesion. Single tiny focus of nonspecific increased T2-weighted signal int ensity in the left frontal lobe white matter which is within normal limits for age. There are no intr aparenchymal signal abnormalities seen on the other pulse sequences. The ventricles are symmetric and normal in size. There are no abnormal extra-axial fluid collections. Flow voids are seen in the cere bral arteries on the T2-weighted sequences consistent with their expected patency. Mild mucosal thick ening in the left frontal and bilateral ethmoid sinuses. Visualized orbits and soft tissues are unrem arkable. There are no areas of abnormal enhancement on the post contrast images. IMPRESSION: 1. Single tiny focus of nonspecific white matter T2 hyperintensity which is within normal limits for age. Otherwise normal brain with no acute intracranial process or abnormally enhancing brain lesions. Reviewed, dictated and finalized at location A. IMPRESSION: 1. Single tiny focus of nonspecific white matter T2 hyperintensity which is wit hin normal limits for age. Otherwise normal brain with no acute intracranial pr ocess or abnormally enhancing brain lesions.
--- NOTE | ~2021-07-31 | CT_ITS ---
Patient Name: Patient Name MR#: Patient MRN Accession#: Accession Numbers EXAMINATION: CTA brain carotid DATE: 07/31/2021 17:49 INDICATION: stroke symptoms TECHNIQUE: Computed tomographic angiography (CTA) of the head was performed with 100 mL Omnipaque-300 intravenous contrast. CTA of the neck was performed with intravenous contrast. Automated exposure co ntrol and iterative reconstruction technique were employed. The dose-length product was 1132.99 mGy-c m. Maximum intensity projection and volume rendered 3D-reconstructions were created by the [employer] st on a separate workstation. COMPARISON: CT brain, same date. FINDINGS: CTA NECK: Aortic arch and proximal great vessels: Unremarkable. Right common carotid, carotid bifurcation, and internal carotid artery: Mild calcified atheroscleroti c plaque at the carotid bifurcation.There is 0% stenosis of the proximal right internal carotid arter y relative to normal distal artery lumen diameter (NASCET criteria). Left common carotid, carotid bifurcation, and internal carotid artery: Mild calcified atherosclerotic plaque at the carotid bifurcation. There is 0% stenosis of the proximal left internal carotid artery relative to normal distal artery lumen diameter (NASCET criteria). Vertebral arteries: No significant plaque or stenosis. The right vertebral artery is dominant. The in tradural portion of the distal right vertebral artery is hypoplastic. Other findings: 3 mm left upper lobe pulmonary nodule. CTA HEAD: No large vessel occlusion, aneurysm, high flow vascular malformation, nidus or extravasation. IMPRESSION: 1. Negative large vessel occlusion. 2. 3 mm left upper lobe pulmonary nodule, likely infectious/inflammatory and requires no follow-up u nless the patient is at high risk for lung cancer, in which case consider 12 month follow-up CT. Reviewed, dictated and finalized at location K. IMPRESSION: 1. Negative large vessel occlusion. 2. 3 mm left upper lobe pulmonary nodule, likely infectious/inflammatory and r equires no follow-up unless the patient is at high risk for lung cancer, in [facility] ch case consider 12 month follow-up CT.
--- NOTE | ~2021-07-31 | CT_ITS ---
EXAMINATION: CT brain wo con DATE: 07/31/2021 15:37 INDICATION: r/o CVA TECHNIQUE: Computed tomography (CT) of the head was performed without intravenous contrast. The mA wa s adjusted according to patient size. Iterative reconstruction technique was employed. The dose-lengt h product was 605.33 mGy-cm. COMPARISON: 12/13/20 FINDINGS: No acute intracranial hemorrhage or extra-axial fluid collection. No hydrocephalus, mass, or herniation. No acute ischemic infarct. Unremarkable dural venous sinus attenuation. No acute osseous abnormality. The aerated spaces are clear. IMPRESSION: No acute intracranial process. Reviewed, dictated and finalized at location K.
--- NOTE | 2021-07-31 15:20 | ECG_ITS ---
Measurements Intervals [place] Rate: 74 P: 29 DE: 177 QRS: 50 QRSD: 93 T: 43 QT: 377 QTc: 418 Interpretive Statements SINUS RHYTHM BASELINE ARTIFACT- I, II, III, AVR, AVL, AVF NORMAL ECG Electronically Signed On 07-31-2021 18:57:14 CDT by Victor Manuel Asher D.O.
[2021-07-31 15:35] LABS: Basophils Absolute Auto 0.1 K/mm3 (0.0-0.1); Basophils Percent Auto 1.2 % (0.2-1.2); Eosinophils Absolute Auto 0.2 K/mm3 (0-0.3); Eosinophils Percent Auto 2.3 % (0-4.4); Hematocrit 46.2 % (37.0-47.0); Hemoglobin 15.8 g/dL (12.0-15.0); Immature Granulocyte Absolute 0.03 K/mm3 (0.00-0.031); Immature Granulocyte Percent A 0.3 % (0-0.5); Lymphocytes Absolute Auto 3.62 K/mm3 (0.9-3.2); Mean Corpuscular HGB Conc 34.2 g/dl (32-36); Mean Corpuscular Hemoglobin 29.9 pg (26-34); Mean Corpuscular Volume 87.5 fl (80-100); Monocytes Absolute Auto 0.5 K/mm3 (0.1-0.6); Monocytes Percent Auto 5.3 % (2.6-8.5); Neutrophils Absolute Auto 4.2 K/mm3 (1.3-6.7); Neutrophils Percent Auto 48.9 % (45.5-73.1); Platelet Count Result 361 k/mm3 (150-375); Red Blood Count 5.28 M/mm3 (4.2-5.4); White Blood Count 8.6 K/mm3 (4.5-10.0)
[2021-07-31 15:47] LABS: Prothrombin Time 13.1 Seconds (11.1-14.7)
[2021-07-31 15:48] LABS: Partial Thromboplastin Time 27.6 SECONDS (22.3-36.8)
[2021-07-31 15:50] LABS: Alanine Aminotransferase 20 U/L (6-35); Albumin Level 4.5 g/dL (3.5-5.1); Alkaline Phosphatase 75 U/L (38-126); Anion Gap 6 mmol/L (8-16); Aspartate Amino Transferase 24 U/L (14-36); Bilirubin,Total 0.6 mg/dL (0.2-1.3); Blood Urea Nitrogen 6 mg/dL (7-17); Calcium 10.3 mg/dL (8.4-10.2); Carbon Dioxide 25 mmol/L (22-30); Chloride 109 mmol/L (98-107); Estimated CRCL calculation 91 ml/min; Estimated Glomerular Filt Rate > 60; Glucose 91 mg/dL (65-110); Potassium 4.5 mmol/L (3.4-5.0); Sodium 140 mmol/L (137-145)
--- NOTE | 2021-07-31 15:55 | ED.GENADULT ---
HPI - General Adult General Chief complaint: Weakness Stated complaint: weakness x 1 hour Time Seen by Provider: 07/31/21 15:24 History of Present Illness HPI narrative: Patient is a 45-year-old female who presents ER with concerns for right-sided weakness. Patient reports she was at home 1 hour prior to arrival posting picture of her dog [employer] when she developed a headache and then started feeling tingling in her right side. She notes that her right leg feels heavy and her right hand feels off as well. No history of CVA. Patient does have history of migraine headaches in the past. Treated in the ER last year for 1 week of headaches however there is no neurologic weakness or numbness associated with it. Patient denies fevers or chills or sweats. No slurred speech. Patient is on no blood thinning medications. Headache is right-sided and aching. Endorses sensitivity to light/sound. Related Data Home Medications Medication Instructions Recorded Confirmed topiramate 50 mg PO TID 03/21/19 12/07/20 lorazepam 1 mg PO TID PRN 01/20/20 12/07/20 aspirin 81 mg tablet,delayed 81 mg PO DAILY tablet 02/16/20 12/07/20 release lamotrigine 100 mg tablet 100 mg PO DAILY tablet 02/16/20 12/07/20 prazosin 2 mg capsule 2 mg PO BID cap 02/16/20 12/07/20 Allergies Allergy/AdvReac Type Severity Reaction Status Date / Time No Known Allergies Allergy Verified 05/16/21 13:35 Review of Systems Review of Systems: All systems reviewed & are unremarkable except as noted in HPI and below Constitutional: Constitutional: Denies chills, Denies fever(s) and Denies weakness Eyes: Eyes: Reports photophobia ENT: Denies nasal congestion and Denies sore throat Comments: Phonophobia Cardiovascular: Cardiovascular: Denies chest pain, Denies rapid heart rate and Denies radiating jaw, neck or arm pain Respiratory: Respiratory: Denies cough and Denies dyspnea Neurologic: Denies syncope, Reports headache(s), Reports focal weakness, Reports numbness and Denies weakness PMFSH Past Medical History Medical History Affective bipolar disorder History of TIA (transient ischemic attack) HLD (hyperlipidemia) Hospital discharge follow-up Obesity Surgical History Surgical History H/O inguinal hernia repair H/O: hysterectomy History of appendectomy Hx of rotator cuff surgery Hx of tonsillectomy Social History Social History Smoking status: Former smoker Tobacco type: cigarettes Second hand tobacco smoke exposure: Yes Additional smoking assessment comments: Quit 2019 Alcohol intake: never Substance use: never Substance use type: does not use Additional living arrangements comments: . 3 children. Additional occupation/education comments: On disability. Gender identity (if verbalized by the patient): Female Sexual Orientation (if Verbalized by the Patient): Straight or Heterosexual Spiritual care concerns: No Exam Narrative: GENERAL: Well-appearing, well-nourished, and in no acute distress. HEAD: Normocephalic, atraumatic. EYES: PERRL and EOMI. ENT: Mucous membranes moist. CHEST: Clear to auscultation. No respiratory distress. HEART: Regular rate and rhythm. Normal peripheral pulses. ABDOMEN: Soft, nontender, nondistended. EXTREMITIES: Normal range of motion. No edema. SKIN: Warm, dry, no rash. NEURO: Alert and oriented x3. See NIH stroke scale. Patient's initial deficit was weakness in the right lower extremity with inability perform heel britton testing. Course Reevaluation(s) Reevaluation #1: Patient initially could not lift right leg off the bed more than a centimeter for dropping back down. She is now able to perform tlau-[id number]-mpau testing. Symptom onset occurred with headache. Suspect migraine variant. Will give Toradol/R
[2021-07-31 16:09] LABS: Appearance Urine Clear (Clear); Bilirubin Urine Negative (Negative); Blood Urine Negative (Negative); Glucose Urine UA Negative (Negative); Ketones Urine Negative (Negative); Leukocyte Esterase Ur Negative LEU/UL (Negative); Nitrate Urine Negative (Negative); Protein Urine Negative (Negative); Urobilinogen Urine 0.2 mg/dL (<2.0)
[2021-07-31 16:12] LABS: Add Urine Microscopic? NO; Color Urine Light Yellow (Yellow)
[2021-07-31] MEDS: METOCLOPRAMIDE HCL INJ 10 MG/2 ML VIAL IV PUSH (16:21)
[2021-07-31] MEDS: KETOROLAC 30 MG/ML VIAL (*BKC) IV PUSH (16:26)
[2021-07-31] MEDS: diphenhydrAMINE HCl INJ 50 MG/ML VIAL 25 MG IV PUSH (16:29)
[2021-07-31] MEDS: ASPIRIN 81 MG CHEWABLE TABLET 324 MG PO (17:23)
--- NOTE | 2021-07-31 17:29 | PC.NURSE ---
pt to ct via stretcher
--- NOTE | 2021-07-31 19:19 | PC.NURSE ---
Report given to Shahriar Carroll RN
[2021-07-31 20:00] LABS: SARS-CoV-2 RNA PCR Negative
--- NOTE | 2021-07-31 20:10 | PM.IMHP ---
H&P: HPI History of Present Illness Date/Time: 07/31/21 20:10 Chief Complaint: HEADACHE Narrative: This is a 45-year-old female with past medical history significant for bipolar disorder, tobacco dependence, morbid obesity, dyslipidemia. Patient presents to the emergency room due to right-sided hemicrania migraine headache with right upper extremity and right lower extremity weakness, numbness. Patient was posting pictures in her social media at the time this happened was sitting down. Patient has some blurry vision of the right eye, no speech disturbance, no dizziness, no diaphoresis, no syncope, no near syncope, no nausea, no vomiting, no chest pain, no fevers, no rigors, no chills, no cough, no sputum production. Patient has been in her usual state of health. Preliminary workup was essentially nonrevealing. Patient has been admitted for further evaluation, management and treatment. Review of Systems Review of Systems: Right-sided hemicrania pain, right upper extremity right lower extremity numbness and weakness. Constitutional: Constitutional: Denies chills, Denies fatigue, Denies fever(s), Denies malaise, Denies night sweats and Denies weakness Eyes: Eyes: Reports blurry vision (Right eye) ENT: Denies dysphagia, Denies vertigo, Denies dizziness, Denies nasal congestion, Denies nasal discharge, Denies nasal obstruction and Denies odynophagia Cardiovascular: Cardiovascular: Denies pedal edema, Denies claudication, Denies leg edema, Denies lightheadedness, Denies radiating jaw, neck or arm pain, Denies palpitations, Denies dyspnea on exertion and Denies orthopnea Respiratory: Respiratory: Denies cough Gastrointestinal: Gastrointestinal: Denies abdominal pain, Denies dyspepsia, Denies heartburn, Denies nausea and Denies vomiting Genitourinary: Genitourinary: Denies dysuria Musculoskeletal: Musculoskeletal: Denies back pain, Denies arthralgias, Denies joint swelling and Denies neck pain Integumentary/Breasts: Skin/Breast: Denies rash Neurologic: Reports headache(s), Reports Sensory deficit (Neuro) and Reports weakness Comments: Hemicrania headache, right upper extremity and right lower extremity numbness Psychiatric: Psychiatric: Reports no additional psychiatric complaints and Reports as per HPI Endocrine: Endocrine: Denies cold intolerance, Denies fatigue, Denies flushing, Denies heat intolerance, Denies polyphagia, Denies polydipsia and Denies palpitations Hematologic/Lymphatic: Hematologic/Lymphatic: Reports no additional hematologic/lymphatic complaints and Reports as per HPI Allergic/Immunologic: Allergic/Immunologic: Reports no additional allergic/immunologic complaints and Reports as per HPI PMFSH Past Medical History Medical History Affective bipolar disorder History of TIA (transient ischemic attack) HLD (hyperlipidemia) Hospital discharge follow-up Obesity Surgical History Surgical History H/O inguinal hernia repair H/O: hysterectomy History of appendectomy Hx of rotator cuff surgery Hx of tonsillectomy Family History Family History (Updated 07/31/21 @ 21:43 by Daphne Wang RN) Other Unknown family medical history Social History Social History Smoking packs per day: 0.5 Smoking cigarettes per day: 10.0 Years smoked: 15 Smoking pack-years: 7.50 Smoking status: Current some day smoker Tobacco type: cigarettes Second hand tobacco smoke exposure: Yes Additional smoking assessment comments: Quit 2019 Alcohol intake: never Substance use: never Substance use type: does not use Additional living arrangements comments: . 3 children. Additional occupation/education comments: On disability. Gender identity (if verbalized by the patient): Female Sexual Orientation (if Verbalized by the Patient): St
--- NOTE | 2021-07-31 21:00 | ADMGEN ---
This patient, Soumya Fuller, was admitted to 2 Medical Room 244-. Patient/family oriented to hospital policies and general routines including ID bracelet, bed and alarms, visiting hours, pain management, procedures, bathroom and other care routines, personal items, smoking policy, room service/diet, and visiting hours. Information on how to activate the Rapid Response Team has been discussed. Patient/Family are encouraged to report perceived risks to care and to ask questions if they do not understand what they are told or what they should do.
[2021-07-31] MEDS: ACETAMINOPHEN 325 MG TABLET 650 MG PO (22:04)
[2021-08-01] VITALS (10 sets, daily range): BP systolic 112–147; BP diastolic 65–95; PULSE 63–90; RESP 16–18; TEMP 35.7–36.6; O2SAT 96–100
--- NOTE | 2021-08-01 07:39 | PM.DS ---
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 Supportive care Continue to monitor (2) HLD (hyperlipidemia): Code(s): E78.5 - Hyperlipidemia, unspecified Status: Acute Assessment and Plan: Patient is not on statin Follow-up in outpatient setting (3) Affective bipolar disorder: Code(s): F31.9 - Bipolar disorder, unspecified Status: Acute Assessment and Plan: Continue home meds Follow-up in outpatient setting (4) Morbid obesity with BMI of 40.0-44.9, adult: Code(s): E66.01 - Morbid (severe) obesity due to excess calories; Z68.41 - Body mass index [BMI] 40.0-44.9, adult Status: Acute Assessment and Plan: Lifestyle and diet modifications (5) Tobacco dependence: Code(s): F17.200 - Nicotine dependence, unspecified, uncomplicated Status: Acute Assessment and Plan: Patient is trying to quit the habit Has significantly reduce the amount of cigarettes Nicotine patch as needed DS: Summary Time Spent with Patient Time attestation: Total time spent providing and/or coordinating discharge services: Exam Narrative: Patient is laying in bed. Const: General: cooperative, comfortable, no acute distress, well developed, alert, awake and other (Well-appearing) Nutritional Appearance: obese morbidly obese Orientation/consciousness: patient oriented x3 HENMT: Head: normal to inspection, normocephalic and atraumatic Ears: hearing grossly normal bilaterally General nose exam: Normal external nose present Face and sinus: normal facial exam Mouth: Yes Normal oral and palatal mucosa present Eyes: General: appearance normal, both eyes and all related structures Alignment and Position: alignment normal Sclera: sclerae normal Pupils: Equal, round and reactive pupils present EOM: EOMs intact bilaterally Direct Ophthalmoscopy: photophobia Neck: Neck: normal visual inspection, full ROM, no lymphadenopathy, supple and no JVD Thyroid: thyroid normal Lymphatic: no lymphadenopathy noted Resp: Effort & Inspection: normal respiratory effort and able to speak in complete sentences Auscultation: clear to auscultation bilaterally, no crackles, no rales, no rhonchi and no wheezes Cardio: Jugular venous distension: no JVD Rate: regular rate Rhythm: regular rhythm Heart sounds: S1 normal heart sound present and S2 normal heart sound present GI: Inspection: Pannus present and obesity : General: Yes deferred Skin: Rashes: no rashes Wounds: no wounds Neuro: General: patient oriented x3, CN's II-XI intact bilaterally and Unable to assess gait Cranial nerves: Yes CN's II-XII intact bilaterally and Yes Equal, round and reactive pupils present Cognition (Neuro): normal cognition Speech: normal speech Gait exam (Neuro): Unable to assess gait Motor exam (neuro): 5/5 motor strength present throughout Sensory Exam: Sensory deficit (Neuro) Extrem: General: normal to inspection, full ROM, no joint enlargement and no pedal edema DS: Data Data Completed and Pending Labs on day of discharge: Labs from last 24 hours 07/31/21 07/31/21 07/31/21 19:19 16:01 15:25 WBC RBC Hgb Hct MCV MCH MCHC RDW Plt Count MPV Immature Gran % (Auto) Neut % (Auto) Lymph % (Auto) Andrew % (Auto) Eos % (Auto) Baso % (Auto) Lymph # (Auto) Andrew # (Auto) Eos # (Auto) Baso # (Auto) Abs Immat Gran (auto) Absolute Neuts (auto) Absolute Nucleated RBC Nucleated RBC % PT INR APTT Sodium 140 Potassium 4.5 Chloride 109 H Carbon Dioxide 25 Anion Gap 6 L BUN 6 L D Creatinine
[2021-08-01] MEDS: LORazepam (*CRX) 1 MG TABLET PO ×2 (07:47)
--- NOTE | 2021-08-01 07:55 | PC.NURSE ---
To MRI via wheelchair.
--- NOTE | 2021-08-01 08:40 | PC.NURSE ---
Returned from MRI via wheelchair.
[2021-08-01] MEDS: ASPIRIN 81 MG ENTERIC TABLET PO (09:38)
[2021-08-01] MEDS: lamoTRIgine 100 MG TABLET PO (09:38)
[2021-08-01] MEDS: TOPIRAMATE 25 MG TABLET 50 MG PO (09:38)
[2021-08-01 11:20] LABS: Hemoglobin 14.4 g/dL (12.0-15.0); Mean Corpuscular HGB Conc 33.5 g/dl (32-36); Mean Corpuscular Hemoglobin 29.4 pg (26-34); Mean Corpuscular Volume 87.9 fl (80-100); Platelet Count Result 326 k/mm3 (150-375); Red Blood Count 4.89 M/mm3 (4.2-5.4); White Blood Count 8.1 K/mm3 (4.5-10.0)
[2021-08-01 11:34] LABS: Alanine Aminotransferase 17 U/L (6-35); Alkaline Phosphatase 63 U/L (38-126); Anion Gap 4 mmol/L (8-16); Aspartate Amino Transferase 19 U/L (14-36); Bilirubin,Total 0.5 mg/dL (0.2-1.3); Blood Urea Nitrogen 9 mg/dL (7-17); Calcium 9.8 mg/dL (8.4-10.2); Carbon Dioxide 25 mmol/L (22-30); Chloride 109 mmol/L (98-107); Estimated CRCL calculation 88 ml/min; Estimated Glomerular Filt Rate > 60; Glucose 97 mg/dL (65-110); Potassium 4.1 mmol/L (3.4-5.0); Sodium 138 mmol/L (137-145)
[2021-08-01 11:45] LABS: Erythrocyte Sedimentation Rate 12 mm/hr (0-20)
--- NOTE | 2021-08-01 15:42 | PM.IMPN ---
Progress Note: A&P Assessment and Plan (1) Atypical migraine: Code(s): G43.009 - Migraine without aura, not intractable, without status migrainosus Status: Acute Assessment and Plan: Place in observation CT angio head and neck with no large vessel occlusion CT of the head with no acute intracranial abnormalities MRI of the brain and EEG today Appreciate neurology consultation today Symptoms are resolving, numbness and tongue swelling resolved. Right upper extremity weakness improving, right lower extremity weakness resolved PT and OT ordered (2) HLD (hyperlipidemia): Code(s): E78.5 - Hyperlipidemia, unspecified Status: Acute Assessment and Plan: Patient is not on statin Will follow Neurology recommendations, may want a statin started at discharge Follow-up in outpatient setting (3) Affective bipolar disorder: Code(s): F31.9 - Bipolar disorder, unspecified Status: Acute Assessment and Plan: Continue home meds Follow-up in outpatient setting No concerns or behaviors concerning today. (4) Morbid obesity with BMI of 40.0-44.9, adult: Code(s): E66.01 - Morbid (severe) obesity due to excess calories; Z68.41 - Body mass index [BMI] 40.0-44.9, adult Status: Acute Assessment and Plan: Lifestyle and diet modifications (5) Tobacco dependence: Code(s): F17.200 - Nicotine dependence, unspecified, uncomplicated Status: Acute Assessment and Plan: Patient is trying to quit the habit Has significantly reduce the amount of cigarettes Nicotine patch as needed Subjective Date/time seen: 08/01/21 15:42 Soumya was feeling better today. She was sitting on her bed when I went to speak with her and examine her. She said she still had some right-sided forehead soreness, no vision changes, no serious migraine pain at this time. Dr. Baez the neurologist will see her today. She has the brain MRI today as well as an EEG today. I did note some right upper extremity racing secretary weakness during her note neuro check, but did not note any right lower extremity weakness, no loss of sensation. Her sensation of tongue swelling has resolved, her head numbness has resolved. I have ordered PT and OT for evaluation. Her urine was clear her CMP and CBC stable. Review of Systems Review of Systems: All systems reviewed & are unremarkable except as noted in HPI and below Constitutional: Constitutional: Denies chills, Denies fatigue, Denies fever(s), Reports headache(s), Denies malaise, Denies night sweats and Reports weakness Eyes: Eyes: Reports blurry vision (Right eye) and Reports photophobia ENT: Denies dysphagia, Denies vertigo, Denies dizziness, Reports headache(s), Denies nasal congestion, Denies nasal discharge, Denies nasal obstruction, Denies neck pain, Denies odynophagia and Denies sore throat Cardiovascular: Cardiovascular: Denies chest pain, Denies syncope, Denies rapid heart rate, Denies pedal edema, Denies claudication, Denies leg edema, Denies lightheadedness, Denies radiating jaw, neck or arm pain, Denies palpitations, Denies dyspnea, Denies dyspnea on exertion and Denies orthopnea Respiratory: Respiratory: Denies cough, Denies dyspnea and Denies dyspnea on exertion Gastrointestinal: Gastrointestinal: Denies abdominal pain, Denies dysphagia, Denies dyspepsia, Denies heartburn, Denies nausea, Denies odynophagia and Denies vomiting Genitourinary: Genitourinary: Denies dysuria Musculoskeletal: Musculoskeletal: Denies back pain, Denies arthralgias, Denies joint swelling, Denies neck pain and Reports numbness Integumentary/Breasts: Skin/Breast: Denies rash Neurologic: Denies vertigo, Denies dizziness, Denies syncope, Reports headache(s), Reports focal weakness, Reports numbness, Reports Sensory deficit (Neuro) and Reports weakness Psychiatric: Psychiatric: Reports no additional psychiatric complaints and Reports as per HPI Endocrine: Endocrine: Denies cold int
[2021-08-01] MEDS: ACETAMINOPHEN 325 MG TABLET 650 MG PO (16:26)
--- NOTE | 2021-08-01 16:44 | WPDNEURCNPN ---
Consult date: 08/01/21 HPI: Soumya Fuller is a 45 year old female admitted to the hospital through the emergency room where she came with the complaint of right-sided weakness the symptomatology started about 1hour prior to the arrival along with the headache and tingling sensation on the right side of her body additionally she mentions her right lower extremity felt heavy she has had no stroke in the past but she does have a history of migrainous headaches she has received a treatment in the emergency room about a year ago, she has been taking topiramate 50 mg t.i.d. lorazepam 1 mg t.i.d. p.r.n. aspirin 81 mg daily lamotrigine 100 daily and prazosin 2 mg capsule twice a day , additionally she does have a history of affective bipolar disorder and TIA in the past she is a former smoker not alcohol drinker is and has 3 children initial evaluation documented normal vital signs except blood pressure 152/76 which came down to 126/71 and routine labs was normal, CT of the head was normal CTA of the head and neck was also normal except the incidental finding of 3mm left upper lobe pulmonary nodule Review of Systems Review of Systems: All systems reviewed & are unremarkable except as noted in HPI and below PMFSH Past Medical History Medical History Affective bipolar disorder History of TIA (transient ischemic attack) HLD (hyperlipidemia) Hospital discharge follow-up Obesity Surgical History Surgical History H/O inguinal hernia repair H/O: hysterectomy History of appendectomy Hx of rotator cuff surgery Hx of tonsillectomy Family History Family History Other Unknown family medical history Social History Social History Smoking packs per day: 0.5 Smoking cigarettes per day: 10.0 Years smoked: 15 Smoking pack-years: 7.50 Smoking status: Current some day smoker Tobacco type: cigarettes Second hand tobacco smoke exposure: Yes Additional smoking assessment comments: Quit 2019 Alcohol intake: never Substance use: never Substance use type: does not use Additional living arrangements comments: . 3 children. Additional occupation/education comments: On disability. Gender identity (if verbalized by the patient): Female Sexual Orientation (if Verbalized by the Patient): Straight or Heterosexual Spiritual care concerns: No Meds Home Medications and Allergies Home Medications Medication Instructions Recorded Confirmed Type lorazepam 1 mg PO TID PRN 01/20/20 07/31/21 History aspirin 81 mg tablet,delayed 81 mg PO DAILY tablet 02/16/20 07/31/21 History release lamotrigine 100 mg tablet 100 mg PO DAILY tablet 02/16/20 07/31/21 History prazosin 2 mg capsule 2 mg PO HS cap 02/16/20 07/31/21 History topiramate 50 mg PO DAILY 07/31/21 07/31/21 History topiramate 100 mg PO HS 07/31/21 07/31/21 History Allergies Allergy/AdvReac Type Severity Reaction Status Date / Time No Known Allergies Allergy Verified 05/16/21 13:35 Vital Signs Vital Signs - 24 hr 07/31/21 17:24 07/31/21 18:50 07/31/21 19:16 Temperature Pulse Rate 82 77 69 Respiratory Rate 18 16 20 Blood Pressure 134/102 H 126/71 132/98 H Pulse Oximetry 99 98 99 07/31/21 21:01 07/31/21 21:08 08/01/21 00:00 Temperature 36.4 C Pulse Rate 76 70 80 Respiratory Rate 16 Blood Pressure 137/79 Pulse Oximetry 100 08/01/21 00:32 08/01/21 04:00 08/01/21 04:34 Temperature 36.6 C 36.6 C Pulse Rate 64 64 69 Respiratory Rate 16 16 Blood Pressure 112/72 114/65 Pulse Oximetry 99 96 08/01/21 08:00 08/01/21 09:35 08/01/21 12:00 Temperature 35.7 C L 36.4 C L Pulse Rate 80 72 Respiratory Rate 18 16 Blood Pressure 137/95 H 147/93 H Pulse Oximetry 99 96 100 Results Labs CBC & Chem 7:
[2021-08-01] MEDS: PRAZOSIN HCL 1 MG CAPSULE 2 MG PO ×2 (20:44)
[2021-08-01] MEDS: TOPIRAMATE 100 MG TABLET PO ×2 (20:44)
[2021-08-02] VITALS (9 sets, daily range): BP systolic 130–148; BP diastolic 73–87; PULSE 7–83; RESP 12–16; TEMP 36.4–36.5; O2SAT 93–99
--- NOTE | 2021-08-02 08:50 | WPDNEUROLOGY ---
Neurology EEG Report General Information Date of Study: 08/02/21 TEST eeg DIAGNOSIS Seizures CONDITION OF RECORDING awake drowsy and sleep EEG NUMBER [id number] CLINICAL HISTORY patient reports 2 days ago she started getting numbness and weakness on her right side feels better by the time the EEG was being done EEG DESCRIPTION basic resting occipital frequency consists of low to medium voltage 9 to 11 hertz per 2nd alpha admixed with low-voltage 15 to 18 hertz per 2nd beta. During drowsiness low-voltage beta activity seen diffusely admixed with the exiting and waning posterior alpha rhythm. Bilateral symmetrical sleep activity seen during sleep. Hyperventilation not done. Photic stimulation not done. Non paroxysmal. Nonfocal. Nonlateralizing. IMPRESSION Normal record
[2021-08-02] MEDS: TOPIRAMATE 25 MG TABLET 50 MG PO (09:56)
[2021-08-02] MEDS: lamoTRIgine 100 MG TABLET PO (09:56)
[2021-08-02] MEDS: ASPIRIN 81 MG ENTERIC TABLET PO (09:56)
--- NOTE | 2021-08-02 13:48 | PM.DS ---
DS: Admitting Diagnosis Discharge Date 08/02/2021 Admitting Diagnosis Atypical migraine, hyperlipidemia, effective bipolar disorder, morbid obesity, tobacco dependence DS: Discharge Diagnosis Discharge Diagnosis (1) Atypical migraine: Code(s): G43.009 - Migraine without aura, not intractable, without status migrainosus Status: Acute Assessment and Plan: Place in observation CT angio head and neck with no large vessel occlusion CT of the head with no acute intracranial abnormalities MRI of the brain and EEG today Appreciate neurology consultation today Symptoms are resolving, numbness and tongue swelling resolved. Right upper extremity weakness improving, right lower extremity weakness resolved PT and OT ordered -date of discharge, 08/02/2021: Patient has been evaluated by Neurology. EEG is normal, MRI is normal. Her pain is controlled today as she has improved overall and she is ready for discharge at this time. (2) HLD (hyperlipidemia): Code(s): E78.5 - Hyperlipidemia, unspecified Status: Acute Assessment and Plan: Patient is not on statin Will follow Neurology recommendations, may want a statin started at discharge Follow-up in outpatient setting -date of discharge, 08/02/2021: Follow-up with primary care physician. No statin recommendation by Neurology. (3) Affective bipolar disorder: Code(s): F31.9 - Bipolar disorder, unspecified Status: Acute Assessment and Plan: Continue home meds Follow-up in outpatient setting No concerns or behaviors concerning today. - date of discharge, 08/02/21: Follow up with current Psychiatrist as outpt. (4) Morbid obesity with BMI of 40.0-44.9, adult: Code(s): E66.01 - Morbid (severe) obesity due to excess calories; Z68.41 - Body mass index [BMI] 40.0-44.9, adult Status: Acute Assessment and Plan: Lifestyle and diet modifications -date of discharge, 08/02/2021: Follow-up with primary care physician upon discharge as outpatient. (5) Tobacco dependence: Code(s): F17.200 - Nicotine dependence, unspecified, uncomplicated Status: Acute Assessment and Plan: Patient is trying to quit the habit Has significantly reduce the amount of cigarettes Nicotine patch as needed - date of discharge, 08/02/2021: Encourage cessation. DS: Summary Hospital Course Reason for hospitalization: Migraine Hospital Course: This 45-year-old female patient with significant past medical history of bipolar disorder, tobacco dependence, morbid obesity, dyslipidemia presented to the emergency room on 07/31/2021 with complaints of right-sided migraine headache with weakness and numbness in the right upper and right lower extremity. She stated that symptoms began when she was focusing on line and was posting pictures to a social media account. In addition she noticed some blurry vision from the right eye. She had no dysphagia, syncope, nausea, vomiting, chest pain, diaphoresis, dizziness, dyspnea. CT of the head was normal CTA of the head and neck was also normal with an incidental finding of a 3 mm left upper lobe pulmonary nodule. MRI of the brain EEG were both normal. Patient has resolution of her symptoms at this point. Per Neurology she can be discharged at this time and follow up with her psychiatrist as an outpatient. Time spent discussing smoking cessation with patient: more than 10 minutes Status at Discharge Functional status at discharge: independent ambulation Overall status at discharge: patient is back to baseline Time Spent with Patient Time attestation: Total time spent providing and/or coordinating discharge services: Time spent: Greater than 30 minutes Exam Const: General: comfortable and no acute distress Limitations: no limitations and physical limitations HENMT: Mouth: Yes moist mucous membranes Eyes: Sclera: sclerae normal Neck: Neck: supple and no JVD Lymphatic: lymphadenopathy not n
[2021-08-05 06:34] LABS: Anti Nuclear Antibody Pattern Nuclear, Speckled; Anti Nuclear Antibody Titer 1:40 (Negative)
--- NOTE | 2022-05-18 11:28 | P.PNNEUR_ITS ---
Subjective Date/time seen: 05/18/22 11:28 Interval history: Patient was concerned about the ANANT 1: 40 during her hospitalization last was brought to my attention to give a call to the patient I did explain to this is not significant if she has gone to any other physician they can repeat the test again if the titer is increasing only then is important Objective Data Meds/Results Radiology Results: ITS Impressions Head CT 07/31/21 15:43 IMPRESSION: No acute intracranial process. Head/Neck CTA 07/31/21 17:54 IMPRESSION: 1. Negative large vessel occlusion. 2. 3 mm left upper lobe pulmonary nodule, likely infectious/inflammatory and r equires no follow-up unless the patient is at high risk for lung cancer, in which case consider 12 month follow-up CT. Brain MRI 08/01/21 09:43 IMPRESSION: 1. Single tiny focus of nonspecific white matter T2 hyperintensity which is within normal limits for age. Otherwise normal brain with no acute intracranial process or abnormally enhancing brain lesions.
== END 2021-08-02 14:35 | disposition home or self-care (01) ==
LOC: ANHED 19:36 → ANH2MED 20:43
PROVIDERS: Nurse Practitioner; Psychiatry & Neurology Neurology; Admitting Provider Hospitalist; Emergency Provider Emergency Medicine; PCP Family Medicine; Visit Provider Nurse Practitioner Adult Health
DX: G43.009 Migraine without aura, not intractable, without status migrainosus (principal); R53.1 Weakness; Z79.82 Long term (current) use of aspirin; Z86.73 Personal history of transient ischemic attack (TIA), and cerebral infarction without residual deficits; E78.5 Hyperlipidemia, unspecified; F31.9 Bipolar disorder, unspecified; E66.01 Morbid (severe) obesity due to excess calories; Z68.41 Body mass index [BMI] 40.0-44.9, adult; F17.210 Nicotine dependence, cigarettes, uncomplicated; Z20.822 Contact with and (suspected) exposure to COVID-19
CPT/HCPCS: 36415; 70450; 70496; 70498; 70553; 80053; 81003; 85025; 85027; 85610; 85652; 85730; 86038; 86039; 93005; 95816; 96374; 96375; 97161; 97165; 99285; A9270; A9577; C9803; G0378; J1200; J1885; J2765; Q9967; U0003; U0005

== ENCOUNTER 2021-08-05 09:54 | Outpatient (CLI) | payer MEDICARE, MEDICAID, SELFPAY ==
[2021-08-05 10:58] LABS: Cholesterol 230 mg/dL (0-200); HDL Direct 33 mg/dL (40-60); LDL Cholesterol Calculated 148 mg/dL (<130); Triglycerides 246 mg/dL (0-150)
== END 2021-08-05 09:55 | disposition home or self-care (01) ==
LOC: CHSLAB 09:58
PROVIDERS: PCP Family Medicine; Visit Provider Family Medicine
DX: E66.9 Obesity, unspecified (principal)
CPT/HCPCS: 36415; 80061

== ENCOUNTER 2021-11-22 09:35 | Outpatient (CLI) | payer MEDICARE, MEDICAID, SELFPAY ==
[2021-11-22] MEDS: METOCLOPRAMIDE HCL INJ 10 MG/2 ML VIAL IV PUSH (10:13)
[2021-11-22] MEDS: DEXAMETHASONE SOD PHOS INJ 4 MG/ML VIAL IV PUSH (10:13)
[2021-11-22] MEDS: DIVALPROEX SODIUM ER 500 MG TAB.24H PO (10:13)
[2021-11-22] MEDS: SODIUM CHLORIDE 0.9% IV 1,000 ML 1000 ML IVPB (10:14)
== END 2021-11-22 09:36 | disposition home or self-care (01) ==
PROVIDERS: PCP Nurse Practitioner Family; Visit Provider Nurse Practitioner Family
DX: G43.909 Migraine, unspecified, not intractable, without status migrainosus (principal)
CPT/HCPCS: 96361; 96374; 96375; A9270; J1100; J2765; J7030

== ENCOUNTER 2022-01-15 01:14 | Emergency (ER) | payer MEDICARE, MEDICAID, SELFPAY ==
--- NOTE | ~2022-01-15 | CT_ITS ---
EXAMINATION: CT abdomen pelvis w con INDICATION: Right upper quadrant abdominal pain TECHNIQUE: Computed tomographic images of the abdomen and pelvis were obtained after the administrati on of 100 cc of Omnipaque 350 intravenous contrast. The dose-length product (DLP) was 1366.99 mGy-cm. Automated exposure control and iterative reconstruction technique were employed. COMPARISON: 02/12/2015 FINDINGS: The lung bases are clear. The heart size is normal. The liver, spleen, pancreas, and gallbl adder are normal. There are changes of interval left adrenalectomy. There is a 2.5 x 1.4 cm mass of t he right adrenal gland. The left kidney is unremarkable. There is a 2 mm nonobstructing stone of the right kidney. No pathologically enlarged abdominal or pelvic lymph nodes are identified. There is no free intraperitoneal gas or evidence of bowel obstruction. There are changes of appendectomy and hyst erectomy. There is a 2.8 cm cystic area of the left adnexa which could reflect an ovarian cyst versus peritoneal inclusion cyst in the appropriate clinical setting. There is formed stool in the nondiste nded terminal ileum, consistent with delayed transit. There is mild lumbar spondylosis. IMPRESSION: 1. No CT correlate for the patient's symptoms. 2. 2.5 cm right adrenal mass. Follow-up adrenal protocol CT is recommended. Reviewed, dictated and finalized at location F.
[2022-01-15 01:20] VITALS: BP 136/94; PULSE 78; RESP 18; TEMP 36.9; O2SAT 98
[2022-01-15 01:27] VITALS: O2SAT 98
--- NOTE | 2022-01-15 01:34 | ED.GENADULT ---
HPI - General Adult General Chief complaint: Abdominal Pain Stated complaint: upper R Pain History of Present Illness HPI narrative: the patient is 46-year-old woman with history of obesity, migraine headaches, hyperlipidemia, and bipolar affective disorder. She has had operations of hysterectomy, appendectomy, and inguinal herniorrhaphy on her abdomen, in addition to add a laparoscopic left adrenal procedure for a left adrenal mass in [place], [place], which turned out to be benign. She does smoke cigarettes. For ago she, since 3:00 p.m. on the afternoon 01/14/2022, has had right upper quadrant abdominal discomfort, radiating to the right flank and also to the right mid back region, associated with occasional nausea but no vomiting. The pain is constant, waxing and waning in intensity, but has been increasing especially with deep breathing. No previous similar episodes of pain in the right upper quadrant. Not diagnosed with cholecystitis or biliary colic in the past. No diarrhea. No substernal chest pain. No dyspnea. No fevers or diaphoresis but occasional chills today. Has felt malaise for the last few days and wanted to remain in bed all day. No urinary symptoms such as dysuria urgency frequency or hematuria. Related Data Home Medications Medication Instructions Recorded Confirmed lorazepam 1 mg tablet 1 mg PO TID PRN Anxiety 01/20/20 01/15/22 aspirin 81 mg tablet,delayed 81 mg PO DAILY 02/16/20 01/15/22 release lamotrigine 100 mg tablet 100 mg PO DAILY 02/16/20 01/15/22 prazosin 2 mg capsule 2 mg PO HS 02/16/20 01/15/22 topiramate 50 mg tablet 50 mg PO DAILY 07/31/21 01/15/22 topiramate 50 mg tablet 100 mg PO HS 07/31/21 01/15/22 Allergies Allergy/AdvReac Type Severity Reaction Status Date / Time No Known Allergies Allergy Verified 11/22/21 09:13 Review of Systems Review of Systems: All systems reviewed & are unremarkable except as noted in HPI and below Constitutional: Constitutional: Reports no additional constitutional complaints, Denies anorexia, Denies body ache(s), Reports chills, Denies excessive sweating, Reports fatigue, Denies fever(s), Denies frequent falls, Denies headache(s), Reports malaise and Denies poor appetite Eyes: Eyes: Reports no additional eye complaints, Denies blurry vision, Denies change in vision, Denies irritation, Denies itchy eyes and Denies photophobia ENT: Reports system reviewed and no additional complaints, except as documented, Reports Normal hearing present, Denies change in voice, Denies dysphagia, Denies vertigo, Denies dizziness, Denies ear discharge, Denies headache(s), Denies hearing loss, Denies hoarseness, Denies nasal congestion, Denies neck pain, Denies sinus pressure, Denies sore throat and Denies throat swelling Cardiovascular: Cardiovascular: Reports no additional cardiovascular complaints, Denies chest pain, Denies syncope, Denies rapid heart rate, Denies irregular heart rhythm, Denies leg edema, Denies dyspnea and Denies slow heart rate Respiratory: Respiratory: Reports no additional respiratory complaints, Denies cough, Denies dyspnea, Denies stridor and Denies wheezing Gastrointestinal: Gastrointestinal: Reports no additional gastrointestinal complaints, Reports abdominal pain, Denies melena, Denies hematochezia, Denies dysphagia, Denies diarrhea, Reports nausea and Denies vomiting Genitourinary: Genitourinary: Denies hematuria, Denies urinary frequency, Denies dysuria, Denies flank pain and Denies urinary urgency Musculoskeletal: Musculoskeletal: Reports no additional musculoskeletal complaints, Denies abnormal gait, Denies back pain, Denies myalgias, Denies arthralgias, Denies joint swelling, Denies limited range of motion, Denies muscle cramps, Denies muscle weakness, Denies neck pain and Denies numbness Integumentary/Breasts: Skin/Breast: Reports system reviewed and no additional complaints, except as docu, Denies breast pain, Denies change in pigmentation, Denies
--- NOTE | 2022-01-15 01:40 | ECG_ITS ---
Measurements Intervals [place] Rate: 74 P: 35 MA: 185 QRS: 21 QRSD: 93 T: 23 QT: 384 QTc: 427 Interpretive Statements SINUS RHYTHM COMPARED TO ECG 07/31/2021 15:40:45 NO SIGNIFICANT CHANGES Electronically Signed On 01-15-2022 19:52:21 CDT by Clarita Gil M.D.
[2022-01-15] MEDS: SODIUM CHLORIDE 0.9% IV 1,000 ML 999 ML IV CONT (02:13)
[2022-01-15] MEDS: KETOROLAC 30 MG/ML VIAL (*BKC) IV PUSH (02:13)
[2022-01-15] MEDS: ONDANSETRON INJ 4 MG/2 ML VIAL IV PUSH (02:13)
[2022-01-15 02:17] LABS: Basophils Absolute Auto 0.11 K/mm3 (0.00-0.10); Basophils Percent Auto 0.9 % (0.0-1.0); Eosinophils Absolute Auto 0.38 K/mm3 (0.02-0.50); Eosinophils Percent Auto 3.2 % (1.0-6.0); Hematocrit 41.9 % (35.0-49.0); Immature Granulocyte Absolute 0.05 K/mm3 (0.00-0.00); Immature Granulocyte Percent A 0.4 % (0.0-0.0); Lymphocytes Absolute Auto 4.61 K/mm3 (1.10-4.50); Lymphocytes Percent Auto 39.3 % (18.0-42.0); Mean Corpuscular HGB Conc 33.4 g/dL (32.0-36.0); Mean Corpuscular Volume 86.9 fL (78.0-102.0); Mean Platelet Volume 10.5 fl (9.2-11.8); Monocytes Absolute Auto 0.72 K/mm3 (0.10-0.90); Monocytes Percent Auto 6.1 % (2.0-11.0); Neutrophils Absolute Auto 5.9 K/mm3 (1.7-7.2); Neutrophils Percent Auto 50.1 % (50.0-70.0); Platelet Count Result 345 K/mm3 (150-420); Red Blood Count 4.82 M/mm3 (4.20-5.40); Red Cell Distribution Width 13.7 % (11.6-14.4); White Blood Count 11.7 K/mm3 (4.8-10.8)
[2022-01-15 02:23] LABS: Appearance Urine Clear (Clear); Bilirubin Urine Negative (Negative); Blood Urine Negative (Negative); Glucose Urine UA Negative (Negative); Ketones Urine Negative (Negative); Leukocyte Esterase Ur Negative LEU/UL (Negative); Nitrate Urine Negative (Negative); Protein Urine Negative (Negative); Urobilinogen Urine 0.2 mg/dL (0.2-1.0)
[2022-01-15 02:24] LABS: Alanine Aminotransferase 22 U/L (14-59); Albumin Level 3.7 g/dL (3.4-5.0); Alkaline Phosphatase 84 U/L (46-116); Anion Gap 12 mmol/L (8-16); Aspartate Amino Transferase 10 U/L (15-37); Bilirubin,Total 0.4 mg/dL (0.00-1.00); Blood Urea Nitrogen 12 mg/dL (7-18); Calcium 9.3 mg/dL (8.5-10.1); Carbon Dioxide 21 mmol/L (21-32); Chloride 108 mmol/L (98-108); Estimated CRCL calculation 93 ml/min; Estimated Glomerular Filt Rate > 60; Glucose 99 mg/dL (70-99); Lipase 163 U/L (73-393); Osmolality Calculated 291 mOsm/kg (285-295); Potassium 3.6 mmol/L (3.5-5.1); Sodium 141 mmol/L (136-145); Total Protein 7.2 g/dL (6.4-8.2); Troponin I 4.9 ng/L (0.00-60.4)
[2022-01-15 02:27] LABS: Add Urine Microscopic? NO; Color Urine Light Yellow (Yellow)
[2022-01-15 02:29] LABS: Amylase 47 U/L (25-115)
[2022-01-15 03:07] VITALS: BP 126/77; PULSE 78; RESP 18; O2SAT 98
[2022-01-15] MEDS: ACETAMINOPHEN 500 MG TABLET 1000 MG PO (03:40)
[2022-01-15] MEDS: traMADol HCL (*CRX) 50 MG TABLET 100 MG PO (03:47)
[2022-01-15 04:35] VITALS: BP 140/86; PULSE 64; RESP 16; TEMP 36.6; O2SAT 98
== END 2022-01-15 04:36 | disposition home or self-care (01) ==
PROVIDERS: Emergency Provider Emergency Medicine; PCP Nurse Practitioner Family
DX: R10.11 Right upper quadrant pain (principal); E78.5 Hyperlipidemia, unspecified; Z87.891 Personal history of nicotine dependence
CPT/HCPCS: 36415; 74177; 80053; 81003; 82150; 83690; 84484; 85025; 93005; 96361; 96374; 96375; 99284; A9270; J1885; J2405; J7030; Q9967

== ENCOUNTER 2022-01-24 10:18 | Outpatient (CLI) | payer MEDICARE, MEDICAID, SELFPAY ==
--- NOTE | ~2022-01-24 | XR_ITS ---
EXAM: XR abdomen/kub 1V DATE: 01/24/2022 10:43 HISTORY: R10.11 - Right upper quadrant pain . COMPARISON: None available. FINDINGS: Surgical clips in the left and right lower quadrants Clear lung bases. Normal bowel gas pat tern. No organomegaly. No abnormal abdominal calcification. Regional bones and soft tissues normal fo r age. IMPRESSION: Unremarkable abdominal radiograph findings. Reviewed, dictated and finalized at location K.
[2022-01-24 10:52] LABS: Hematocrit 46.2 % (37.0-47.0); Hemoglobin 15.2 g/dL (12.0-15.0); Mean Corpuscular HGB Conc 32.9 g/dl (32-36); Mean Platelet Volume 10.6 fl (7.4-10.4); Platelet Count Result 361 k/mm3 (150-375); Red Blood Count 5.25 M/mm3 (4.2-5.4); White Blood Count 9.3 K/mm3 (4.5-10.0)
[2022-01-24 10:58] LABS: Alanine Aminotransferase 22 U/L (6-35); Albumin Level 4.6 g/dL (3.5-5.1); Alkaline Phosphatase 80 U/L (38-126); Aspartate Amino Transferase 19 U/L (14-36); Bilirubin,Total 0.6 mg/dL (0.2-1.3); CRP 0.6 mg/dL (<1.0)
[2022-01-24 11:30] LABS: Erythrocyte Sedimentation Rate 14 mm/hr (0-20)
== END 2022-01-24 10:19 | disposition home or self-care (01) ==
PROVIDERS: PCP Nurse Practitioner Family; Visit Provider Nurse Practitioner
DX: E27.8 Other specified disorders of adrenal gland (principal); E66.01 Morbid (severe) obesity due to excess calories; R10.11 Right upper quadrant pain; R93.3 Abnormal findings on diagnostic imaging of other parts of digestive tract; Z68.41 Body mass index [BMI] 40.0-44.9, adult; F31.9 Bipolar disorder, unspecified
CPT/HCPCS: 36415; 74018; 80076; 84443; 85027; 85652; 86140

== ENCOUNTER 2022-01-25 08:53 | Outpatient (CLI) | payer MEDICARE, MEDICAID, SELFPAY ==
--- NOTE | ~2022-01-25 | MM_ITS ---
EXAMINATION: MM screening mariano BI w gaurang HISTORY: Screening TECHNIQUE: Craniocaudal and mediolateral oblique 3-D tomosynthesis images were obtained and synthetic 2-D images were generated. CAD analysis was submitted and interpreted. COMPARISON: Comparison to multiple prior studies sequentially, with oldest reviewed study dated 02/24. BREAST PARENCHYMAL COMPOSITION: Breast composed of scattered areas of fibroglandular density FINDINGS: Benign-appearing bilateral breast nodules are stable There is no evidence of suspicious mas s, calcification, or architectural distortion to suggest malignancy in either breast. There has been no suspicious interval change. IMPRESSION: 1. No mammographic evidence of malignancy. 2. Recommend routine screening mammography in one year. BI-RADS Category 2: Benign finding(s). Reviewed, dictated and finalized at location A.
== END 2022-01-25 08:54 | disposition home or self-care (01) ==
LOC: CHSIMG 08:53
PROVIDERS: PCP Family Medicine; Visit Provider Family Medicine
DX: Z12.31 Encounter for screening mammogram for malignant neoplasm of breast (principal)
CPT/HCPCS: 77063; 77067

== ENCOUNTER 2022-02-25 16:17 | Emergency (ER) | payer MEDICARE, MEDICAID, SELFPAY ==
--- NOTE | ~2022-02-25 | XR_ITS ---
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 RESULT: Lines, tubes, and devices: Soft tissue anchor in the left humeral head. Lungs and pleura: Clear. Cardiomediastinal silhouette: Stable. Other: No acute osseous or upper abdominal finding. IMPRESSION: No acute cardiopulmonary process. Reviewed, dictated and finalized at location K. E TELEVISION INSTALLER
[2022-02-25 16:20] VITALS: BP 142/92; PULSE 88; RESP 18; TEMP 37.1; O2SAT 97
[2022-02-25 16:35] VITALS: BP 142/92; PULSE 88; RESP 18; TEMP 37.1; O2SAT 97
[2022-02-25] MEDS: IPRATROPIUM 0.5 MG/ALBUTEROL SULFATE 2.5 MG AMPUL.NEB 3 ML INHALATION (17:00)
[2022-02-25 17:01] VITALS: PULSE 77; RESP 20; O2SAT 97
[2022-02-25 17:12] VITALS: PULSE 85; RESP 20
[2022-02-25] MEDS: SODIUM CHLORIDE 0.9% IV 1,000 ML 999 ML IV CONT (17:30)
[2022-02-25] MEDS: methylPREDNISolone SOD SUCC 125 MG VIAL IV PUSH (17:31)
[2022-02-25 17:42] VITALS: BP 131/80; PULSE 71; RESP 16; O2SAT 97
[2022-02-25 18:20] LABS: Influenza A QL RT-PCR Negative (Negative); Influenza B QL RT-PCR Negative (Negative)
[2022-02-25 18:22] LABS: RSV RNA, RT-PCR Negative (Negative)
[2022-02-25 18:23] LABS: SARS-CoV-2 RNA PCR Positive (Negative)
--- NOTE | 2022-02-25 18:25 | ED.GENADULT ---
HPI - General Adult General Chief complaint: Dizziness Stated complaint: sob, dizzy, pos home covid test Time Seen by Provider: 02/25/22 16:23 Source: patient Mode of arrival: ambulatory Limitations: no limitations History of Present Illness HPI narrative: This is a 46-year-old female with some 3 day history of feeling dizzy and some mild shortness of breath mild cough with nasal congestion with currently no fever chills was diagnosed with COVID with a home COVID test 2 days ago. Otherwise there is no nausea vomiting abdominal pain no diarrhea constipation. Onset (ago): day(s) Severity: mild Related Data Home Medications Medication Instructions Recorded Confirmed lamotrigine 100 mg tablet 100 mg PO DAILY 02/16/20 02/25/22 prazosin 2 mg capsule 2 mg PO HS 02/16/20 02/25/22 topiramate 50 mg tablet 50 mg PO DAILY 07/31/21 02/25/22 topiramate 50 mg tablet 100 mg PO HS 07/31/21 02/25/22 Allergies Allergy/AdvReac Type Severity Reaction Status Date / Time No Known Allergies Allergy Verified 02/25/22 16:54 Review of Systems Review of Systems: All systems reviewed & are unremarkable except as noted in HPI and below Gastrointestinal: Gastrointestinal: Reports as per HPI PMFSH Past Medical History Medical History Abnormal CT scan, colon Abnormal WBC count Adrenal Mass Affective bipolar disorder Colon cancer screening History of TIA (transient ischemic attack) HLD (hyperlipidemia) Obesity Surgical History Surgical History H/O inguinal hernia repair H/O: hysterectomy History of appendectomy Hx of rotator cuff surgery Hx of tonsillectomy Family History Family History Other Unknown family medical history Social History Social History Smoking packs per day: 0.5 Smoking cigarettes per day: 10.0 Years smoked: 15 Smoking pack-years: 7.50 Smoking status: Former smoker Tobacco type: cigarettes Second hand tobacco smoke exposure: Yes Additional smoking assessment comments: Quit 2019 Alcohol intake: never Substance use: never Substance use type: does not use Additional living arrangements comments: . 3 children. Additional occupation/education comments: On disability. Gender identity (if verbalized by the patient): Female Sexual Orientation (if Verbalized by the Patient): Straight or Heterosexual Spiritual care concerns: No Exam Const: General: healthy appearing, no acute distress and alert Nutritional Appearance: well nourished Orientation/consciousness: patient oriented x3 Limitations: no limitations HENMT: Head: normal to inspection Face and sinus: normal facial exam Mouth: Yes Normal oral and palatal mucosa present Eyes: Conjunctivae: conjunctivae normal Pupils: Equal, round and reactive pupils present EOM: EOMs intact bilaterally Direct Ophthalmoscopy: no photophobia Neck: Neck: normal visual inspection Chest: Chest palpation & inspection: normal inspection of the chest Resp: Effort & Inspection: normal respiratory effort Auscultation: clear to auscultation bilaterally Cardio: Rate: regular rate Rhythm: regular rhythm GI: GI Palp: Yes Soft to palpation Auscultation: normal bowel sounds Urinary Catheter: Urinary Catheter: patent and draining Back/Spine/Pelvis: Back: no CVA tenderness Skin: General skin exam: normal color Rashes: no rashes Wounds: no wounds Neuro: General: patient oriented x3 Cranial nerves: Yes Nystagmus not present Speech: normal speech Extrem: General: normal to inspection Psych: Mental Status: mental status grossly normal Affect: normal affect Attitude: cooperative Course Course Emergency Course: Chest x-ray reviewed with patient which shows no pneumonia, she has positive for COVID an
== END 2022-02-25 18:41 | disposition home or self-care (01) ==
PROVIDERS: Emergency Provider Emergency Medicine; PCP Family Medicine
DX: U07.1 COVID-19 (principal)
CPT/HCPCS: 71045; 87502; 87634; 94640; 96361; 96374; 99284; J2930; J7030; U0003; U0005

== ENCOUNTER 2022-05-10 08:58 | Outpatient (CLI) | payer MEDICARE, MEDICAID, SELFPAY ==
--- NOTE | ~2022-05-10 | CT_ITS ---
EXAMINATION: CT abdomen pelvis wo con DATE: 05/10/2022 11:44 INDICATION: Right lower quadrant abdominal pain TECHNIQUE: Computed tomography (CT) of the abdomen and pelvis was performed without intravenous contr ast. The dose-length product (DLP) was 1381.41 mGy-cm. Automated exposure control and iterative recon struction technique were employed. COMPARISON: 01/15/2022 FINDINGS: The lung bases are clear. The heart size is normal. The liver, spleen, pancreas, and gallb ladder are normal. There are changes of left adrenalectomy. There is a 2.2 x 1.8 cm low-density mass of the right adrenal gland without significant change, consistent with an adenoma. There is a 3 mm no nobstructing stone of the right kidney. The left kidney is unremarkable. No stones are present in the ureters or bladder. No hydronephrosis or right ureter. Changes of appendectomy are noted. No patholo gically enlarged abdominal or pelvic lymph nodes are identified. No free intraperitoneal gas or evide nce of bowel obstruction. A moderate volume of colonic stool is present. The previously described cys tic area of the left adnexa has decreased in size, consistent with a benign finding. IMPRESSION: 1. No CT correlate for the patient's symptoms. Reviewed, dictated and finalized at location B. ER PITMAN
[2022-05-10 11:17] LABS: Hematocrit 44.1 % (35.0-49.0); Hemoglobin 14.7 g/dL (12.0-15.0); Mean Corpuscular HGB Conc 33.3 g/dL (32.0-36.0); Mean Corpuscular Hemoglobin 28.9 pg (27.0-31.0); Mean Corpuscular Volume 86.8 fL (78.0-102.0); Mean Platelet Volume 10.1 fl (9.2-11.8); Platelet Count Result 320 K/mm3 (150-420); Red Blood Count 5.08 M/mm3 (4.20-5.40); Red Cell Distribution Width 13.4 % (11.6-14.4); White Blood Count 9.3 K/mm3 (4.8-10.8)
[2022-05-10 11:18] LABS: Add Urine Microscopic? NO; Appearance Urine Clear (Clear); Bilirubin Urine Negative (Negative); Blood Urine Negative (Negative); Color Urine Light Yellow (Yellow); Glucose Urine UA Negative (Negative); Ketones Urine Negative (Negative); Leukocyte Esterase Ur Negative (Negative); Nitrate Urine Negative (Negative); Protein Urine Negative (Negative); Specific Grav Ur <= 1.005 (1.010-1.020); Urobilinogen Urine 0.2 mg/dL (0.2-1.0)
[2022-05-10 11:39] LABS: Alanine Aminotransferase 24 U/L (14-59); Alkaline Phosphatase 86 U/L (46-116); Anion Gap 9 mmol/L (8-16); Aspartate Amino Transferase < 10 U/L (15-37); Bilirubin,Total 0.6 mg/dL (0.00-1.00); Blood Urea Nitrogen 9 mg/dL (7-18); Calcium 10.2 mg/dL (8.5-10.1); Carbon Dioxide 24 mmol/L (21-32); Chloride 103 mmol/L (98-108); Estimated Glomerular Filt Rate > 60; Glucose 99 mg/dL (70-99); Lipase 47 U/L (16-77); Osmolality Calculated 280 mOsm/kg (285-295); Potassium 3.8 mmol/L (3.5-5.1); Sodium 136 mmol/L (136-145); Total Protein 7.3 g/dL (6.4-8.2)
== END 2022-05-10 08:59 | disposition home or self-care (01) ==
PROVIDERS: PCP Family Medicine; Visit Provider Internal Medicine Endocrinology, Diabetes & Metabolism
DX: R10.9 Unspecified abdominal pain (principal); N23 Unspecified renal colic; E83.52 Hypercalcemia
CPT/HCPCS: 36415; 74176; 80053; 81003; 82340; 83690; 85027

== ENCOUNTER 2022-05-28 20:35 | Emergency (ER) | payer MEDICARE, MEDICAID, SELFPAY ==
[2022-05-28 20:43] VITALS: BP 154/95; PULSE 89; RESP 20; TEMP 36.4; O2SAT 100
[2022-05-28 21:02] LABS: Basophils Absolute Auto 0.05 K/mm3 (0.00-0.10); Basophils Percent Auto 0.5 % (0.0-1.0); Hematocrit 42.2 % (35.0-49.0); Hemoglobin 14.2 g/dL (12.0-15.0); Immature Granulocyte Absolute 0.03 K/mm3 (0.00-0.00); Immature Granulocyte Percent A 0.3 % (0.0-0.0); Lymphocytes Absolute Auto 3.48 K/mm3 (1.10-4.50); Lymphocytes Percent Auto 34.2 % (18.0-42.0); Mean Corpuscular HGB Conc 33.6 g/dL (32.0-36.0); Mean Corpuscular Hemoglobin 29.2 pg (27.0-31.0); Mean Corpuscular Volume 86.7 fL (78.0-102.0); Mean Platelet Volume 10.4 fl (9.2-11.8); Monocytes Percent Auto 3.9 % (2.0-11.0); Neutrophils Percent Auto 59.1 % (50.0-70.0); Platelet Count Result 325 K/mm3 (150-420); Red Blood Count 4.87 M/mm3 (4.20-5.40); Red Cell Distribution Width 13.7 % (11.6-14.4); White Blood Count 10.2 K/mm3 (4.8-10.8)
[2022-05-28] MEDS: KETOROLAC 30 MG/ML VIAL (*BKC) IV PUSH (21:05)
[2022-05-28 21:19] LABS: Alanine Aminotransferase 21 U/L (14-59); Albumin Level 3.6 g/dL (3.4-5.0); Alkaline Phosphatase 79 U/L (46-116); Anion Gap 10 mmol/L (8-16); Aspartate Amino Transferase 14 U/L (15-37); Bilirubin,Total 0.4 mg/dL (0.00-1.00); Blood Urea Nitrogen 11 mg/dL (7-18); Calcium 9.8 mg/dL (8.5-10.1); Carbon Dioxide 23 mmol/L (21-32); Chloride 109 mmol/L (98-108); Estimated Glomerular Filt Rate > 60; Glucose 149 mg/dL (70-99); Osmolality Calculated 296 mOsm/kg (285-295); Potassium 3.6 mmol/L (3.5-5.1); Sodium 142 mmol/L (136-145); Total Protein 7.3 g/dL (6.4-8.2)
--- NOTE | 2022-05-28 21:21 | ED.BACK ---
HPI - Back Pain/Injury General Chief Complaint: Back Pain/Injury Stated Complaint: kidney pain History of Present Illness HPI Narrative: Patient complains of right lower back pain flank for the last 4 months she said she saw her primary care doctor said it was a muscle strain she says she has history of kidney stones feels like her her kidneys falling out she rates as 11/02 she took ibuprofen 800 mg twice today without much help she said today her pain started at 12 noon. Then later this evening she noticed her feet were swollen. Denies any other complaints. Denies any injury fall Related Data Home Medications Medication Instructions Recorded Confirmed lamotrigine 100 mg tablet 100 mg PO DAILY 02/16/20 02/25/22 prazosin 2 mg capsule 2 mg PO HS 02/16/20 02/25/22 topiramate 50 mg tablet 50 mg PO DAILY 07/31/21 02/25/22 topiramate 50 mg tablet 100 mg PO HS 07/31/21 02/25/22 Allergies Allergy/AdvReac Type Severity Reaction Status Date / Time No Known Allergies Allergy Verified 05/10/22 10:16 Review of Systems Constitutional: Constitutional: Reports no additional constitutional complaints Eyes: Eyes: Reports no additional eye complaints ENT: Reports system reviewed and no additional complaints, except as documented Cardiovascular: Cardiovascular: Reports no additional cardiovascular complaints Respiratory: Respiratory: Reports no additional respiratory complaints Gastrointestinal: Gastrointestinal: Reports no additional gastrointestinal complaints Genitourinary: Genitourinary: Reports no additional female genitourinary complaints Musculoskeletal: Musculoskeletal: Reports as per HPI and Reports back pain Integumentary/Breasts: Skin/Breast: Reports system reviewed and no additional complaints, except as docu Neurologic: Reports system reviewed and no additional complaints, except as documented [facility] Past Medical History Medical History Abnormal CT scan, colon Abnormal WBC count Adrenal Mass Affective bipolar disorder Colon cancer screening History of TIA (transient ischemic attack) HLD (hyperlipidemia) Obesity Surgical History Surgical History H/O inguinal hernia repair H/O: hysterectomy History of appendectomy Hx of rotator cuff surgery Hx of tonsillectomy Family History Family History Other Unknown family medical history Social History Social History Smoking packs per day: 0.5 Smoking cigarettes per day: 10.0 Years smoked: 15 Smoking pack-years: 7.50 Smoking status: Former smoker Tobacco type: cigarettes Second hand tobacco smoke exposure: Yes Additional smoking assessment comments: Quit 2019 Alcohol intake: never Substance use: never Substance use type: does not use Lack of Transportation: No Lack of Food: Never True Current Housing: I Have Housing Concerned About Future Housing: No Difficulty Paying Gas/Electric Bills: No Difficulty Paying for Meds: No Currently Unemployed: No Education: High School Diploma/GED Difficulty w/ Childcare or Family Care: No Living arrangements: with family Additional living arrangements comments: . 3 children. Occupation/Education: other Additional occupation/education comments: On disability. Gender identity (if verbalized by the patient): Female Sexual Orientation (if Verbalized by the Patient): Straight or Heterosexual Spiritual care concerns: No Exam Const: General: healthy appearing Nutritional Appearance: well nourished Orientation/consciousness: patient oriented x3 Limitations: no limitations HENMT: Head: normal to inspection Ears: external ears normal Face/Nose/Sinus: Normal external nose present Face and sinus: normal facial exam Mouth: Yes Normal
[2022-05-28 21:47] LABS: Appearance Urine Clear (Clear); Bilirubin Urine Negative (Negative); Blood Urine Negative (Negative); Color Urine Light Yellow (Yellow); Glucose Urine UA Negative (Negative); Ketones Urine Negative (Negative); Leukocyte Esterase Ur Negative (Negative); Nitrate Urine Negative (Negative); Protein Urine Negative (Negative); Specific Grav Ur 1.015 (1.010-1.020); pH Urine 6.5 (5.0-8.0)
[2022-05-28 22:00] LABS: Add Urine Microscopic? NO
[2022-05-28 23:29] VITALS: BP 136/86; PULSE 69; RESP 20; TEMP 36.9; O2SAT 100
== END 2022-05-28 23:31 | disposition home or self-care (01) ==
PROVIDERS: Emergency Provider Emergency Medicine; PCP Family Medicine
DX: M54.50 Low back pain, unspecified (principal); E78.5 Hyperlipidemia, unspecified; Z86.73 Personal history of transient ischemic attack (TIA), and cerebral infarction without residual deficits; Z87.891 Personal history of nicotine dependence
CPT/HCPCS: 36415; 80053; 81003; 85025; 96374; 99284; J1885

== ENCOUNTER 2022-10-26 08:06 | Observation (INO) | payer MEDICARE, MEDICAID, SELFPAY ==
[2022-10-26] VITALS (48 sets, daily range): BP systolic 84–163; BP diastolic 67–95; PULSE 70–95; RESP 0–23; TEMP 35.8–36.4; O2SAT 95–100; BMI 43.7
--- NOTE | ~2022-10-26 | CT_ITS ---
EXAMINATION: CTA brain carotid DATE: 10/26/2022 09:17 INDICATION: Right arm numbness. TECHNIQUE: Computed tomographic angiography (CTA) of the head was performed with 100 mL Omnipaque-350 intravenous contrast. CTA of the neck was performed with intravenous contrast. Automated exposure co ntrol and iterative reconstruction technique were employed. The dose-length product was 1005.67 mGy-c m. Maximum intensity projection and volume rendered 3D-reconstructions were created by the technSorbisensei st on a separate workstation. COMPARISON: Head CT 10/26/2022 FINDINGS: HEAD CTA: There is no intracranial hemorrhage, acute infarction, or abnormal intracranial mass lesion . The ventricles are normal in size. There is mild mucosal thickening in the ethmoid sinuses. The orb its are normal. The mastoid air cells are normal. Left vertebral artery is dominant. There is no sign ificant stenosis of basilar artery or the posterior cerebral arteries. The posterior communicating ar teries are normal. There is no significant stenosis of the intracranial internal carotid arteries or anterior or middle cerebral arteries. Anterior communicating artery is normal. There is no aneurysm. NECK CTA: There are no pathologically enlarged lymph nodes. There is no significant stenosis of the v ertebral arteries. There is mild plaque in the proximal territories. There is 0% stenosis of the prox imal right internal carotid artery relative to normal distal artery lumen diameter (NASCET criteria). There is 0% stenosis of the proximal left internal carotid artery relative to normal distal artery l umen diameter. There is mild cervical spondylosis. IMPRESSION: 1. Normal brain. No aneurysm or significant intracranial arterial stenosis. 2. 0% stenosis of the proximal internal carotid arteries relative to normal distal artery lumen diame ters (NASCET criteria). Reviewed, dictated and finalized at location L. IMPRESSION: 1. Normal brain. No aneurysm or significant intracranial arterial stenosis. 2. 0% stenosis of the proximal internal carotid arteries relative to normal dis carmelita artery lumen diameters (NASCET criteria).
--- NOTE | ~2022-10-26 | MR_ITS ---
MRI of the brain Clinical History: Right-sided weakness Technique: Axial and sagittal T1-weighted images were acquired. These were followed by axial T2-weigh manuel, diffusion weighted, gradient, and FLAIR images. Following intravenous administration of 20 cc Mu ltiHance gadolinium, T1-weighted fat-sat imaging was performed in the axial and coronal planes. COMPARISON: 08/01/2021 Findings: No abnormal signal seen in the brain parenchyma. No acute infarct, intracranial hemorrhage, or mass lesion. Ventricles and subarachnoid spaces are unremarkable. Orbits are unremarkable. Paranasal sinuses and m astoid air cells are clear. Major intracranial flow voids appear intact. Sagittal midline structures are intact. No abnormal postcontrast enhancement identified. IMPRESSION: Unremarkable exam. Reviewed, dictated and finalized at location . IMPRESSION: Unremarkable exam.
--- NOTE | ~2022-10-26 | CT_ITS ---
Non-contrast Head CT History: Right-sided numbness, CVA COMPARISON: 07/31/2021 Technique: Axial non-contrast imaging of the brain was performed. Dose reduction technique was used on this scan by utilizing automated exposure control and iterative reconstruction technique. The dose -length product (DLP) was 529.67 mGy-cm. Findings: There is no evidence of intracranial hemorrhage, mass lesion, or acute infarct. Brain par enchyma appears normal. The ventricles and subarachnoid spaces are normal in size. The calvarium ap pears normal. The visualized paranasal sinuses and mastoid air cells are clear. Impression: No significant abnormality seen. Case discussed with Dr. Hernandez at 8:18 AM on 10/26/2022. Reviewed, dictated and finalized at location . Impression: No significant abnormality seen. Case discussed with Dr. Hernandez at 8:18 AM on 10/26/2022.
--- NOTE | ~2022-10-26 | XR_ITS ---
EXAMINATION: XR chest 1V portable DATE: 10/26/2022 08:34 INDICATION: Weakness TECHNIQUE: frontal view of the chest was obtained. COMPARISON: Chest radiograph dated 02/25/2022 FINDINGS: The lungs are clear with no focal airspace opacities, pulmonary edema, pleural effusion or pneumothor ax. The cardiomediastinal silhouette is normal. Suture anchor likely from rotator cuff repair at the left humeral head. IMPRESSION: 1. No acute cardiopulmonary disease. Reviewed, dictated and finalized at location A.
--- NOTE | 2022-10-26 08:07 | ECG_ITS ---
Measurements Intervals Maybe[place] Rate: 81 P: 35 DC: 189 QRS: 40 QRSD: 94 T: 34 QT: 399 QTc: 465 Interpretive Statements SINUS RHYTHM COMPARED TO ECG 01/15/2022 01:52:55 NO SIGNIFICANT CHANGES Electronically Signed On 10-26-2022 10:19:14 CDT by Clarita Gil M.D.
[2022-10-26 08:21] LABS: Glucose Point of Care 136 mg/dl (65-105)
[2022-10-26 08:39] LABS: Basophils Absolute Auto 0.1 K/mm3 (0.0-0.1); Eosinophils Absolute Auto 0.1 K/mm3 (0-0.3); Eosinophils Percent Auto 2.1 % (0-4.4); Hematocrit 41.4 % (37.0-47.0); Hemoglobin 13.6 g/dL (12.0-15.0); Immature Granulocyte Absolute 0.03 K/mm3 (0.00-0.031); Immature Granulocyte Percent A 0.5 % (0-0.5); Lymphocytes Percent Auto 34.9 % (18.3-44.2); Mean Corpuscular HGB Conc 32.9 g/dl (32-36); Mean Corpuscular Hemoglobin 28.3 pg (26-34); Mean Corpuscular Volume 86.3 fl (80-100); Mean Platelet Volume 10.4 fl (7.4-10.4); Monocytes Absolute Auto 0.5 K/mm3 (0.1-0.6); Monocytes Percent Auto 7.6 % (2.6-8.5); Neutrophils Absolute Auto 3.4 K/mm3 (1.3-6.7); Neutrophils Percent Auto 53.9 % (45.5-73.1); Platelet Count Result 278 k/mm3 (150-375); White Blood Count 6.3 K/mm3 (4.5-10.0)
--- NOTE | 2022-10-26 08:48 | ED.NEUROSD ---
HPI - Neuro Symptoms/Deficit General Chief Complaint: Neuro Symptoms/Deficit Stated Complaint: right side numbness Time Seen by Provider: 10/26/22 08:07 Source: patient, EMS, RN notes reviewed and old records reviewed Mode of arrival: EMS Limitations: no limitations History of Present Illness HPI Narrative: This is a 47 year old female with history of TIA, migraine who presents for evaluation of right arm numbness. Patient states she woke up this morning at 5:45 am . She states she woke up feeling weak and she did not feel right so she was going to urgent care to be assessed for carbon monoxide poisoning. She was driving and she reports feeling tongue heaviness and right arm numbness at 715 am. She also reports feeling right leg heaviness. SHe describes this symptoms as intermittent. She denies headache, blurred vision, nausea, vomiting chest pain, slurred speech. She has been assessed for right side weakness and numbness before and she has been diagnosed with hemiplegia migraine. Related Data Home Medications Medication Instructions Recorded Confirmed lamotrigine 100 mg tablet 100 mg PO DAILY 02/16/20 10/26/22 prazosin 2 mg capsule 2 mg PO HS 02/16/20 10/26/22 topiramate 50 mg tablet 50 mg PO DAILY 07/31/21 10/26/22 topiramate 50 mg tablet 100 mg PO HS 07/31/21 10/26/22 atorvastatin 40 mg tablet 40 mg PO DAILY 10/26/22 10/26/22 levothyroxine 200 mcg tablet 200 mcg PO DAILY 10/26/22 10/26/22 lorazepam 1 mg tablet 1 mg PO TID PRN Anxiety 10/26/22 10/26/22 Allergies Allergy/AdvReac Type Severity Reaction Status Date / Time No Known Allergies Allergy Verified 10/26/22 16:17 Review of Systems Review of Systems: All systems reviewed & are unremarkable except as noted in HPI and below PMFSH Past Medical History Medical History (Updated 10/26/22 @ 21:23 by Ludy Hernandez MD) Abnormal CT scan, colon Abnormal WBC count Adrenal Mass Affective bipolar disorder Colon cancer screening Depression with anxiety History of TIA (transient ischemic attack) HLD (hyperlipidemia) Hypertension Obesity Thyroid cancer radioactive iodine Surgical History Surgical History (Updated 10/26/22 @ 19:47 by Saadia Beauchamp NP) H/O inguinal hernia repair H/O: hysterectomy History of appendectomy Hx of rotator cuff surgery Hx of thyroidectomy Hx of tonsillectomy S/P ORIF (open reduction internal fixation) fracture Right knee to ankle Family History Family History (Updated 10/26/22 @ 19:48 by Saadia Beauchamp NP) Mother Hypertension Other Unknown family medical history Social History Social History (Updated 10/26/22 @ 19:43 by Saadia Beauchamp NP) Social History: The patient is and disabled. She is a former smoker. Code status full code Smoking packs per day: 0.5 Smoking cigarettes per day: 10.0 Years smoked: 15 Smoking pack-years: 7.50 Smoking status: Former smoker Tobacco type: cigarettes Second hand tobacco smoke exposure: Yes Additional smoking assessment comments: Quit 2019 Alcohol intake: never Substance use: never Substance use type: does not use Lack of Transportation: No Lack of Food: Never True Current Housing: I Have Housing Concerned About Future Housing: No Difficulty Paying Gas/Electric Bills: No Difficulty Paying for Meds: No Currently Unemployed: No Education: High School Diploma/GED Difficulty w/ Childcare or Family Care: No Living arrangements: with family Additional living arrangements comments: . 3 children. Occupation/Education: other Additional occupation/education comments: On disability. Gender identity (if verbalized by the patient): Female Sexual Orientation (if Verbalized by the Patient): Straight or Heterosexual Spiritual care concerns: No Exam Const: General: no acute distress and alert Nutritional Appearance: well nourished Orientation/consciousness: patient oriented x3 HENMT: Head: nor
[2022-10-26 08:51] LABS: Alanine Aminotransferase 22 U/L (6-35); Albumin Level 4.3 g/dL (3.5-5.1); Alkaline Phosphatase 60 U/L (38-126); Anion Gap 10 mmol/L (8-16); Aspartate Amino Transferase 22 U/L (14-36); Bilirubin,Total 0.6 mg/dL (0.2-1.3); Blood Urea Nitrogen 9 mg/dL (7-17); Calcium 8.6 mg/dL (8.4-10.2); Carbon Dioxide 20 mmol/L (22-30); Chloride 107 mmol/L (98-107); Estimated CRCL calculation 110 ml/min; Estimated Glomerular Filt Rate > 60; Glucose 122 mg/dL (65-110); Potassium 3.5 mmol/L (3.4-5.0); Sodium 137 mmol/L (137-145)
[2022-10-26 08:57] LABS: INR 0.9; Prothrombin Time 12.9 Seconds (11.1-14.7)
[2022-10-26 08:58] LABS: Partial Thromboplastin Time 26.8 SECONDS (22.3-36.8)
[2022-10-26 09:01] LABS: Troponin I < 0.012 ng/mL (0.000-0.034)
[2022-10-26 09:07] LABS: Beta HCG Quantitative < 2.39 mIU/ML
[2022-10-26 09:44] LABS: Thyroid Stimulating Hormone Reflex 0.018 uIU/mL (0.465-4.68)
[2022-10-26 10:27] LABS: Free T4 Free Thyroxine Reflex 2.74 ng/dL (0.78-2.19)
[2022-10-26] MEDS: SODIUM CHLORIDE 0.9% IV 1,000 ML 999 ML IV CONT (10:40)
[2022-10-26] MEDS: PROCHLORPERAZINE EDISYLATE 10 MG/2 ML VIAL IV PUSH (10:41)
[2022-10-26] MEDS: KETOROLAC 15 MG/ML VIAL (*BKC) IV PUSH (10:42)
--- NOTE | 2022-10-26 13:10 | PC.NURSE ---
Pt reports that her mother has a hx of Small Vessel disease and has had strokes.
--- NOTE | 2022-10-26 13:13 | PM.IMHP ---
H&P: HPI History of Present Illness Date/Time: 10/26/22 13:13 Chief Complaint: Neuro symptoms Narrative: This is a 47-year-old female patient who has a history of TIAs and hemo hemiplegia migraines. The patient came to the emergency room complaining of right arm numbness but is not having any headaches today. The patient stated that she was recently exposed to carbon monoxide poisoning. The patient also states that her right leg is have he has well. The patient stated that she did not have any blurred vision any nausea vomiting or slurred speech. She had no facial droop. Check TSH is 0.018 and T4 is 2.74. Head and neck CTA was read as following1. Normal brain. No aneurysm or significant intracranial arterial stenosis. 2. 0% stenosis of the proximal internal carotid arteries relative to normal distal artery lumen diameters (NASCET criteria). Chest x-ray was read as. No acute cardiopulmonary disease. Head CT was read asNo significant abnormality seen. MRI has been performed but no official read is noted yet. Patient was given Compazine, Toradol and IV fluids. The patient is being admitted to observation status on 10/26/2022. Review of Systems Review of Systems: All systems reviewed & are unremarkable except as noted in HPI and below Constitutional: Constitutional: Reports as per HPI and Reports no additional constitutional complaints Eyes: Eyes: Reports as per HPI and Reports no additional eye complaints ENT: Reports system reviewed and no additional complaints, except as documented and Reports Normal hearing present Cardiovascular: Cardiovascular: Reports no additional cardiovascular complaints Respiratory: Respiratory: Reports no additional respiratory complaints and Reports no additional respiratory complaints Gastrointestinal: Gastrointestinal: Reports as per HPI and Reports no additional gastrointestinal complaints Musculoskeletal: Musculoskeletal: Reports no additional musculoskeletal complaints Integumentary/Breasts: Skin/Breast: Reports system reviewed and no additional complaints, except as docu and Reports as per HPI Neurologic: Reports system reviewed and no additional complaints, except as documented, Reports as per HPI and Reports Normal hearing present Psychiatric: Psychiatric: Reports no additional psychiatric complaints and Reports as per HPI Endocrine: Endocrine: Reports no additional endocrine complaints Hematologic/Lymphatic: Hematologic/Lymphatic: Reports no additional hematologic/lymphatic complaints Allergic/Immunologic: Allergic/Immunologic: Reports no additional allergic/immunologic complaints [facility] Past Medical History Medical History (Updated 10/26/22 @ 19:47 by Saadia Beauchamp NP) Abnormal CT scan, colon Abnormal WBC count Adrenal Mass Affective bipolar disorder Colon cancer screening Depression with anxiety History of TIA (transient ischemic attack) HLD (hyperlipidemia) Hypertension Obesity Thyroid cancer radioactive iodine Surgical History Surgical History (Updated 10/26/22 @ 19:47 by Saadia Beauchamp NP) H/O inguinal hernia repair H/O: hysterectomy History of appendectomy Hx of rotator cuff surgery Hx of thyroidectomy Hx of tonsillectomy S/P ORIF (open reduction internal fixation) fracture Right knee to ankle Family History Family History (Updated 10/26/22 @ 19:48 by Saadia Beauchamp NP) Mother Hypertension Other Unknown family medical history Social History Social History (Updated 10/26/22 @ 19:43 by Saadai Beauchamp NP) Social History: The patient is and disabled. She is a former smoker. Code status full code Smoking packs per day: 0.5 Smoking cigarettes per day: 10.0 Years smoked: 15 Smoking pack-years: 7.50 Smoking status: Former smoker Tobacco type: cigarettes Second hand tobacco smoke exposure: Yes Additional smoking assessment comments: Quit 2019 Alcohol intake: never Substance use: never Substan
--- NOTE | 2022-10-26 16:09 | ADMGEN ---
This patient, Soumya Fuller, was admitted to Medical Room 246-01. Patient/family oriented to hospital policies and general routines including ID bracelet, bed and alarms, visiting hours, pain management, procedures, bathroom and other care routines, personal items, smoking policy, room service/diet, and visiting hours. Information on how to activate the Rapid Response Team has been discussed. Patient/Family are encouraged to report perceived risks to care and to ask questions if they do not understand what they are told or what they should do.
[2022-10-26] MEDS: PRAZOSIN HCL 1 MG CAPSULE 2 MG PO (21:43)
[2022-10-26] MEDS: TOPIRAMATE 100 MG TABLET PO (21:43)
[2022-10-27] VITALS: PULSE 78
--- NOTE | 2022-10-27 | ECHO_ITS ---
Patient Info Name: Soumya Fuller Age: 47 years : 1975 Gender: Female Ht: 64 in Wt: 254 lbs BSA: 2.34 m2 HR: 79 bpm BP: 126 / 71 mmHg Heart Rhythm: Sinus Rhythm Technical Quality: Good Exam Date: 10/27/2022 10:37 AM Exam Location: [facility] Patient Status: Outpatient Admit Date: 10/26/2022 Staff Ordering Physician: Saadia Beauchamp NP Marinator: Lanny Reid RDCS Attending Provider: Jayy Martinez MD Referring Physician: Quynh MEJIA; Exam Type: CA echo doppler color flow Study Info Indications - TIA SYMPTOMS Complete two-dimensional, color flow and Doppler transthoracic echocardiogram is performed. Summary 1. Complete two-dimensional, color flow and Doppler transthoracic echocardiogram is performed. 2. Unremarkable 2D/Doppler echocardiogram. Left Ventricle Left ventricular chamber dimension is normal. Left ventricular systolic function is normal, estimated at 60-65%. The left ventricular diastolic function is normal. Right Ventricle Right ventricular chamber dimension is normal. Left Atria Left atrial chamber dimension is normal. Right Atria Right atrial chamber dimension is normal. Aortic Valve The aortic valve is normal. Pulmonic Valve The pulmonic valve is normal. Mitral Valve The mitral valve has normal leaflets. Tricuspid Valve The tricuspid valve leaflets are normal. Pericardium/Pleural The pericardium appears normal. Aorta The aortic root size at the sinus of Valsalva is normal. Left Ventricular Outflow Tract Name Value Normal LVOT 2D LVOT Diameter 2.0 cm LVOT Doppler LVOT Peak Gradient 5 mmHg LVOT Mean Gradient 3 mmHg LVOT VTI 20 cm LVOT VTI/AV VTI Ratio 0.7 LVOT Stroke Volume 62 ml Pulmonic Valve Name Value Normal RVOT Doppler RVOT Peak Gradient 2 mmHg PV Doppler PV Peak Gradient 4 mmHg Mitral Valve Name Value Normal MV Doppler MV Decel Maverick 454 cm/s2 MV PHT 61 ms MV Area (PHT) 3.6 cm2 4.0-5.0 MV Diastolic Function MV E Peak Velocity 95 cm/s MV A Peak Velocity 101 cm/s MV E/A 0.9 MV Decel Time 210 ms Tricuspid Valve N
[2022-10-27 04:00] VITALS: PULSE 73
[2022-10-27 05:05] VITALS: BP 132/76; PULSE 97; RESP 17; TEMP 36.1; O2SAT 80
[2022-10-27] MEDS: LORazepam (*CRX) 1 MG TABLET PO (06:59)
[2022-10-27] MEDS: LEVOTHYROXINE SODIUM 100 MCG TABLET 200 MCG PO (07:03)
[2022-10-27 07:10] LABS: Basophils Absolute Auto 0.1 K/mm3 (0.0-0.1); Eosinophils Absolute Auto 0.2 K/mm3 (0-0.3); Hemoglobin 12.3 g/dL (12.0-15.0); Immature Granulocyte Absolute 0.03 K/mm3 (0.00-0.031); Immature Granulocyte Percent A 0.5 % (0-0.5); Lymphocytes Absolute Auto 2.31 K/mm3 (0.9-3.2); Lymphocytes Percent Auto 38.2 % (18.3-44.2); Mean Corpuscular HGB Conc 32.4 g/dl (32-36); Mean Corpuscular Hemoglobin 28.8 pg (26-34); Mean Platelet Volume 10.4 fl (7.4-10.4); Monocytes Absolute Auto 0.4 K/mm3 (0.1-0.6); Monocytes Percent Auto 7.3 % (2.6-8.5); Platelet Count Result 252 k/mm3 (150-375); Red Blood Count 4.27 M/mm3 (4.2-5.4); Red Cell Distribution Width 14.4 % (11.5-14.5)
[2022-10-27 07:21] LABS: Alanine Aminotransferase 18 U/L (6-35); Albumin Level 3.5 g/dL (3.5-5.1); Alkaline Phosphatase 51 U/L (38-126); Anion Gap 5 mmol/L (8-16); Aspartate Amino Transferase 18 U/L (14-36); Bilirubin,Total 0.3 mg/dL (0.2-1.3); Blood Urea Nitrogen 9 mg/dL (7-17); Calcium 8.1 mg/dL (8.4-10.2); Carbon Dioxide 19 mmol/L (22-30); Chloride 113 mmol/L (98-107); Estimated CRCL calculation 109 ml/min; Estimated Glomerular Filt Rate > 60; Glucose 105 mg/dL (65-110); Magnesium 1.9 mg/dL (1.6-2.3); Potassium 3.7 mmol/L (3.4-5.0); Sodium 137 mmol/L (137-145)
[2022-10-27 08:00] VITALS: PULSE 70
[2022-10-27] MEDS: ATORVASTATIN 40 MG TABLET PO (08:07)
[2022-10-27] MEDS: lamoTRIgine 100 MG TABLET PO (08:07)
[2022-10-27] MEDS: TOPIRAMATE 25 MG TABLET 50 MG PO (08:07)
--- NOTE | 2022-10-27 10:40 | PM.DS ---
DS: Admitting Diagnosis Discharge Date 10/27/22 Admitting Diagnosis Hemiplegic migraine DS: Discharge Diagnosis Discharge Diagnosis (1) Acute right hemiparesis: Code(s): G81.91 - Hemiplegia, unspecified affecting right dominant side Status: Acute (2) Hypertension: Code(s): I10 - Essential (primary) hypertension Status: Acute (3) Depression with anxiety: Code(s): F41.8 - Other specified anxiety disorders Status: Acute (4) Thyroid cancer: Code(s): C73 - Malignant neoplasm of thyroid gland Status: Acute DS: Summary Hospital Course Hospital Course: Patient was admitted with left-sided hemiplegia. CT: MRI head was negative. She has a history of hemiplegic migraine which is what this is. Today she feels fatigued but has no unilateral weakness. She also had a thyroid test done which showed patient was hyperthyroid so will decrease her levothyroxine dose to 150 mcg from 200 mcg. Patient needs to get a thyroid profile in 4-6 weeks as outpatient. She is stable and is being discharged home Time Spent with Patient Time attestation: Total time spent providing and/or coordinating discharge services: DS: Data Data Completed and Pending Labs on day of discharge: Labs from last 24 hours 10/27/22 06:25 WBC 6.0 RBC 4.27 Hgb 12.3 Hct 38.0 MCV 89.0 MCH 28.8 MCHC 32.4 RDW 14.4 Plt Count 252 MPV 10.4 Immature Gran % (Auto) 0.5 Neut % (Auto) 50.0 Lymph % (Auto) 38.2 Stanley % (Auto) 7.3 Eos % (Auto) 3.0 Baso % (Auto) 1.0 Lymph # (Auto) 2.31 Stanley # (Auto) 0.4 Eos # (Auto) 0.2 Baso # (Auto) 0.1 Abs Immat Gran (auto) 0.03 Absolute Neuts (auto) 3.0 Absolute Nucleated RBC 0.0 Nucleated RBC % 0.0 Sodium 137 Potassium 3.7 Chloride 113 H Carbon Dioxide 19 L Anion Gap 5 L BUN 9 Creatinine 0.70 Estim Creat Clear Calc 109 Estimated GFR > 60 Glucose 105 Calcium 8.1 L Magnesium 1.9 Total Bilirubin 0.3 AST 18 ALT 18 Alkaline Phosphatase 51 Total Protein 6.0 L Albumin 3.5 TSH (Reflex) 0.020 L Free T4 Pending Discharge Plan Discharge Consulting providers: Yvrose Wilson Discharging Clinician: Jayy Martinez Anticipated Discharge Date/Time: 10/27/22 10:39 Patient Disposition: Home, Self-Care Activity: no preference Diet: heart healthy Patient Instructions: Antibiotic Form Stand Alone Forms: General Discharge Information Follow-up/Referrals: PHYSICIAN NOT ON STAFF,NONSTAFF [Primary Care Provider] - Discharge Medications: New levothyroxine [Synthroid] 150 mcg Tablet 150 mcg PO DAILY@0630 Qty: 30 0RF Continued lamotrigine 100 mg tablet 100 mg PO DAILY prazosin 2 mg capsule 2 mg PO HS topiramate 50 mg tablet 50 mg PO DAILY topiramate 50 mg tablet 100 mg PO HS lorazepam 1 mg tablet 1 mg PO TID PRN (Reason: Anxiety) atorvastatin 40 mg tablet 40 mg PO DAILY Rx Instructions: TAKE 1 TABLET BY MOUTH EVERY DAY Discontinued levothyroxine 200 mcg tablet 200 mcg PO DAILY Date of admission: 10/26/22 12:19 Primary Care Provider: PHYSICIAN NOT ON STAFF,NONSTAFF Admitting Provider: Ava Christy Attending physician on admission: Jayy Martinez Condition: Stable
--- NOTE | 2022-10-27 11:23 | WPDNEURCNPN ---
Assessment and Plan Assessment and plan (1) Acute right hemiparesis: Code(s): G81.91 - Hemiplegia, unspecified affecting right dominant side Status: Acute (2) Atypical migraine: Code(s): G43.009 - Migraine without aura, not intractable, without status migrainosus Status: Acute Plan Ms. Fuller is a 47 year old female presenting for evaluation of R sided weakness/paraesthesias. MRI brain is normal. She continues to report some mild weakness still in the RLE and sensory changes on the right. Could be hemiplegic aura related to her prior hemiplegic migraines. Would avoid triptans in this setting. - Please provide a prescription for Ubrelvy 100mg PRN onset of symptoms (patient reports odd sensation prior to the attacks) - Continue Topamax 50mg in the morning and 100mg qhs - [place] [facility] [place] Consult date: 10/27/22 Reason for consult: Right sided weakness HPI: Soumya Fuller is a 47 year old female with a history of anxiety, bipolar disorder, HTN, HLD presenting with right sided weakness/paraesthesias. Patient developed these symptoms suddenly yesterday, with involvement of her right arm and right leg. The episode lasted about 30 minutes. She did not have any sort of headache at that time. She did not have any vision changes or speech deficit. When she presented to [facility] ED she had mild weakness of the right side. She has had similar episodes about once a year. In the past these have been diagnosed as TIAs. However, patient has had these episodes with migraine type headaches in the past, and once she started taking Topamax, the headaches resolved, and she only had the episodes of right sided weakness, which seems to occur during times of stress. She was tried on sumatriptan, but didn't actually take it because she said it interacted with one of her medications (unknown which one). Her father has a history of migraines but there is no other family member with hemiplegic migraines. Patient reports two prior miscarriages but there is no family history of abnormal clotting, stroke/TIA at younger age, or recurrent miscarriages. MRI brain and CTA brain/carotid are both normal from this admission. Review of Systems Constitutional: Constitutional: Denies chills, Reports fatigue, Denies fever(s), Reports weakness and Denies weight loss Eyes: Eyes: Denies diplopia and Denies loss of vision ENT: Denies dizziness, Denies hearing loss and Denies tinnitus Cardiovascular: Cardiovascular: Denies chest pain, Denies syncope and Denies dyspnea Respiratory: Respiratory: Denies cough, Denies dyspnea and Denies wheezing Gastrointestinal: Gastrointestinal: Denies abdominal pain, Denies change in bowel habits and Denies vomiting Genitourinary: Genitourinary: Denies urinary incontinence Musculoskeletal: Musculoskeletal: Denies arthralgias and Denies joint swelling Integumentary/Breasts: Skin/Breast: Denies new lesions and Denies rash Neurologic: Reports as per HPI, Denies dizziness, Denies syncope and Denies loss of vision Psychiatric: Psychiatric: Reports anxiety and Denies depression Endocrine: Endocrine: Denies cold intolerance and Denies heat intolerance Hematologic/Lymphatic: Hematologic/Lymphatic: Denies easy bleeding and Denies easy bruising Allergic/Immunologic: Allergic/Immunologic: Denies no additional allergic/immunologic complaints and Denies wheezing PMFSH Past Medical History Medical History (Updated 10/26/22 @ 21:23 by Ludy Hernandez MD) Abnormal CT scan, colon Abnormal WBC count Adrenal Mass Affective bipolar disorder Colon cancer screening Depression with anxiety History of TIA (transient ischemic attack) HLD (hyperlipidemia) Hypertension Obesity Thyroid cancer radioactive iodine Surgical History Surgical History H/O inguinal hernia repair H/O: hysterectomy History of appendectomy Hx of rotator cuff surgery Hx of thyroid
== END 2022-10-27 11:25 | disposition home or self-care (01) ==
LOC: ANHED 08:31 → ANH3MEDSUR 13:09 → ANH2MED 14:30
PROVIDERS: Nurse Practitioner; Admitting Provider Student in an Organized Health Care Education/Training Program; Emergency Provider General Practice; Visit Provider Hospitalist
DX: G43.009 Migraine without aura, not intractable, without status migrainosus (principal); I69.359 Hemiplegia and hemiparesis following cerebral infarction affecting unspecified side; I10 Essential (primary) hypertension; R20.0 Anesthesia of skin; F41.8 Other specified anxiety disorders; C73 Malignant neoplasm of thyroid gland; F31.9 Bipolar disorder, unspecified; E78.5 Hyperlipidemia, unspecified; R53.1 Weakness; E05.90 Thyrotoxicosis, unspecified without thyrotoxic crisis or storm; E66.9 Obesity, unspecified; Z68.41 Body mass index [BMI] 40.0-44.9, adult; Z87.891 Personal history of nicotine dependence; Z79.899 Other long term (current) drug therapy; Z82.49 Family history of ischemic heart disease and other diseases of the circulatory system
CPT/HCPCS: 36415; 70450; 70496; 70498; 70553; 71045; 80053; 81025; 82948; 83735; 84439; 84443; 84484; 84702; 85025; 85610; 85730; 93005; 93306; 96361; 96374; 96375; 99285; A9270; A9577; G0378; J0780; J1885; J7030; Q9967

== ENCOUNTER 2022-12-19 09:08 | Outpatient (RCR) | payer MEDICARE, MEDICAID, SELFPAY ==
--- NOTE | 2022-12-19 10:07 | OPREHPOC ---
Outpatient Therapy Plan of Care This is a Multidisciplinary Plan of Care that may contain components documented by all disciplines (PT, OT, and ST.) PT Problem 1 PT Problem #1 Knowledge Deficit PT Goal 1 Goal 1. independent and compliant with HEP Target Visit 6 PT Problem 2 PT Problem #2 Pain PT Goal 1 Goal 1. 3/10 or less pain in the R knee at worst after a full day of standing and walking. Target Visit 12 PT Problem 3 PT Problem #3 Impaired Range of Motion PT Goal 1 Goal 1. 0-120 degrees R knee arom mobility Target Visit 12 PT Problem 4 PT Problem #4 Impaired Strength PT Goal 1 Goal 1. 4+/5 R hip flexion 2. 5/5 R knee flexion and extension Target Visit 12 PT Problem 5 PT Problem #5 Impaired Functional Mobil PT Goal 1 Goal 1. patient to ambulate 6 minutes walk test for 1000ft or more 2. patient to ambulate up and down 1 flight of steps reciprocally x4 bouts 3. patient to squat and lift 30lbs box from floor with safe mechanics 4. LEFS to display 30% or less functional deficits Target Visit 12
--- NOTE | 2022-12-19 10:07 | PTOPEVAL1 ---
Assessment and note entered by JT File, PT Evaluation Information Assessment Status Evaluation Diagnosis R LCL tear, R chondrocalcinosis, R knee OA Onset 08/24/22 Subjective Information patient reports back in August of this year. she reports she was in [place]. she reports she saw a bear and took off running. she reports she fell while trying to get away from the bear. she reports she injured the R knee during this incident. she reports she had an xray of the R knee, but no MRI. she reports she had a brace on for a short stent. she reports she has increased pain in the R knee with extra movement. she reports she especially has increased issues with stair ambulaiton. Reported Pain Level Pain Score 7: Self Report Assessment PT Clinical Summary mrs. raymond presents to skilled PT services for evaluation and treatment of R knee pain. she initially injured the R knee back in August of this year. she displays deficits in R knee rom, strength, and has pain limiting her functional abilities. she would benefit from continued skilled PT to address her objective/funcitonal deficits and progress towards a return to her prior level functional activity performance/ quality of life. Plan of Care Interventions Electrical Stimulation,Gait Training,Hot Pack/Cold Pack,Manual Therapy,Neuro Re-education,Patient/ Caregiver Educati,Therapeutic Activities, Therapeutic Exercise PT Services Indicated Yes Treatment Frequency and 3x weekly for 12 visits Duration These treatments will address the objective and functional deficits as defined above. The patient will be advanced safely and appropriately in order for the patient to progress towards his/her prior level of function. Additional exercises will be introduced and as well as a comprehensive home exercise program upon discharge, if needed, ?to ensure carryover of functional gains achieved in the clinic. This treatment plan has been reviewed and agreement upon by the patient.
== END 2023-01-01 20:00 | disposition home or self-care (01) ==
LOC: CHSPT 09:08
PROVIDERS: Visit Provider Nurse Practitioner Family
DX: S83.421D Sprain of lateral collateral ligament of right knee, subsequent encounter (principal); M11.261 Other chondrocalcinosis, right knee; M17.31 Unilateral post-traumatic osteoarthritis, right knee
CPT/HCPCS: 97014; 97110; 97140; 97161; G0283

== ENCOUNTER 2023-01-30 14:36 | Emergency (ER) | payer MEDICARE, MEDICAID, SELFPAY ==
[2023-01-30] VITALS (8 sets, daily range): BP systolic 124–139; BP diastolic 85–90; PULSE 67–76; RESP 15–21; TEMP 36.5; O2SAT 98–100
--- NOTE | ~2023-01-30 | CT_ITS ---
EXAMINATION: CT brain wo con DATE: 01/30/2023 15:04 INDICATION: HEADACHE . TECHNIQUE: Computed tomography (CT) of the head was performed without intravenous contrast. The mA wa s adjusted according to patient size. Iterative reconstruction technique was employed. The dose-lengt h product was 681.00 mGy-cm. COMPARISON: CT brain, CTA brain carotid, MR brain 10/26/2022. FINDINGS: No acute intracranial hemorrhage or extra-axial fluid collection. No hydrocephalus, mass, or herniation. No acute ischemic infarct. Unremarkable dural venous sinus attenuation. No acute osseous abnormality. The aerated spaces are clear. IMPRESSION: No acute intracranial process. Reviewed, dictated and finalized at location [facility] [employer] [facility]
[2023-01-30] MEDS: SODIUM CHLORIDE 0.9% IV 1,000 ML 999 ML IV CONT (15:21)
[2023-01-30] MEDS: diphenhydrAMINE HCl INJ 50 MG/ML VIAL IV PUSH (15:23)
[2023-01-30] MEDS: METOCLOPRAMIDE HCL INJ 10 MG/2 ML VIAL IV PUSH (15:24)
[2023-01-30] MEDS: KETOROLAC 30 MG/ML VIAL (*BKC) IV PUSH (15:25)
--- NOTE | 2023-01-30 15:35 | ED.HA ---
HPI - Headache General Chief Complaint: Headache Stated Complaint: migraine Time Seen by Provider: 01/30/23 14:38 Source: patient Mode of arrival: ambulatory Limitations: no limitations History of Present Illness HPI Narrative: 47 YEARS OLD WHITE FEMALE DROVE HERSELF TO THE EMERGENCY ROOM BECAUSE OF SUDDEN ONSET OF FOREHEAD THAT WE HAD THE FEELING, TONGUE FELT HEAVY, VISION AND THE RIGHT EYE IS BLURRY, RIGHT ARM IT FELT HEAVY. PATIENT REPORT HAVING SIMILAR SYMPTOMS OCTOBER SECONDARY TO HEMIPLEGIC MIGRAINE HEADACHE. CONSTIPATION DENYING ANY HEADACHE. HISTORY OF HYPERLIPIDEMIA, HYPOTHYROIDISM. PATIENT DOES NOT SMOKE OR DRINK, SMOKE MARIJUANA DAILY. PATIENT DENIES ANY FEVER, CHILLS, NAUSEA, VOMITING OR HEADACHE. PATIENT REPORTED THE ONLY DIFFERENCE BETWEEN THE HEADACHE TODAY AND OCTOBER IS THAT THE BLURRY VISION Related Data Home Medications Medication Instructions Recorded Confirmed lamotrigine 100 mg tablet 100 mg PO DAILY 02/16/20 01/30/23 prazosin 2 mg capsule 2 mg PO HS 02/16/20 01/30/23 topiramate 50 mg tablet 50 mg PO DAILY 07/31/21 01/30/23 topiramate 50 mg tablet 100 mg PO HS 07/31/21 01/30/23 atorvastatin 40 mg tablet 40 mg PO DAILY 10/26/22 01/30/23 lorazepam 1 mg tablet 1 mg PO TID PRN Anxiety 10/26/22 01/30/23 Allergies Allergy/AdvReac Type Severity Reaction Status Date / Time No Known Allergies Allergy Verified 01/30/23 15:12 Review of Systems Review of Systems: All systems reviewed & are unremarkable except as noted in HPI and below PMFSH Past Medical History Medical History Abnormal CT scan, colon Abnormal WBC count Adrenal Mass Affective bipolar disorder Colon cancer screening Depression with anxiety History of TIA (transient ischemic attack) HLD (hyperlipidemia) Hypertension Obesity Thyroid cancer radioactive iodine Surgical History Surgical History H/O inguinal hernia repair H/O: hysterectomy History of appendectomy Hx of rotator cuff surgery Hx of thyroidectomy Hx of tonsillectomy S/P ORIF (open reduction internal fixation) fracture Right knee to ankle Family History Family History Mother Hypertension Other Unknown family medical history Social History Social History Social History: The patient is and disabled. She is a former smoker. Code status full code Smoking packs per day: 0.5 Smoking cigarettes per day: 10.0 Years smoked: 15 Smoking pack-years: 7.50 Smoking status: Former smoker Tobacco type: cigarettes Second hand tobacco smoke exposure: Yes Additional smoking assessment comments: Quit 2019 Alcohol intake: never Substance use: never Substance use type: does not use Lack of Transportation: No Lack of Food: Never True Current Housing: I Have Housing Concerned About Future Housing: No Difficulty Paying Gas/Electric Bills: No Difficulty Paying for Meds: No Currently Unemployed: No Education: High School Diploma/GED Difficulty w/ Childcare or Family Care: No Living arrangements: with family Additional living arrangements comments: . 3 children. Occupation/Education: other Additional occupation/education comments: On disability. Gender identity (if verbalized by the patient): Female Sexual Orientation (if Verbalized by the Patient): Straight or Heterosexual Spiritual care concerns: No Exam Narrative: GENERAL APPEARANCE: WELL-DEVELOPED, WELL-NOURISHED SKIN: NORMAL COLOR HEAD: NORMOCEPHALIC, NONTRAUMATIC EYES: CLEAR CONJUNCTIVA ENT: OROPHARYNX NORMAL, EARS NORMAL, NOSE NORMAL NECK: SUPPLE, NONTENDER CHEST AND RESPIRATORY: AIRWAY PATENT, NO RESPIRATORY DISTRESS, NO ACCESSORY MUSCLE USE HEART: REGULAR RATE/RHYTHM ABDOMEN: SOFT, NONTENDER, NO ORGANOMEGALY, QUIET BOWEL SOUND
== END 2023-01-30 16:36 | disposition home or self-care (01) ==
PROVIDERS: Emergency Provider Emergency Medicine; PCP Family Medicine Sports Medicine
DX: G43.109 Migraine with aura, not intractable, without status migrainosus (principal); I10 Essential (primary) hypertension; E78.5 Hyperlipidemia, unspecified; Z86.73 Personal history of transient ischemic attack (TIA), and cerebral infarction without residual deficits; Z85.850 Personal history of malignant neoplasm of thyroid; Z79.899 Other long term (current) drug therapy; Z87.891 Personal history of nicotine dependence
CPT/HCPCS: 70450; 96361; 96374; 96375; 99284; J1200; J1885; J2765; J7030

== ENCOUNTER 2024-08-23 14:19 | Emergency (ER) | payer MEDICARE, MEDICAID, SELFPAY ==
--- NOTE | ~2024-08-23 | CT_ITS ---
CT abdomen pelvis w con Ordering provider: Lobo Mitchell MD History: 48 years Female with . Lower abdominal pain/ nausea x1 day . Comparison: May 10, 2022 Technique: CT abdomen and pelvis with IV and without oral contrast. Automated exposure control and it erative reconstruction technique were employed. The dose-length product was 694.42 mGy-cm. 100 mL Omn ipaque 350 was given IV. Findings: VISUALIZED LOWER CHEST: Normal. UPPER ABDOMINAL ORGANS: Liver: Hepatomegaly. Gallbladder: Normal. Spleen: Normal. Stomach/duodenum: Postoperative changes in the stomach. Pancreas: Normal. Adrenals: Right adrenal adenoma measuring 2 cm unchanged from previous examination Kidneys: 5 mm stone in the right kidney mid pole. Small cyst in the right kidney lower pole. PELVIC ORGANS: The bladder is underfilled. BOWEL AND MESENTERY: Colon: No evidence of diverticulitis. Status post appendectomy. Small Bowel: Normal. No obstruction. Peritoneum/mesentery: No free air or free fluid. No mesenteric lymphadenopathy. RETROPERITONEUM: Mild atheromatous disease of the distal abdominal aorta. No retroperitoneal lympha denopathy. MUSCULOSKELETAL: Superficial soft tissues: The superficial soft tissues are normal. Bones: Age appropriate degenerative changes of the spine. Bilateral sacroiliitis. Sclerotic changes i n the right pubic bone. Follow-up advised. IMPRESSION: 1. No evidence of appendicitis, diverticulitis or intestinal obstruction. 2. Stone in the right kidney mid pole. 3. Sclerotic changes in the right pubic bone. Follow-up advised. 4. Right adrenal adenoma unchanged. 5. Hepatomegaly. Reviewed, dictated and finalized at location A.
[2024-08-23 14:19] VITALS: BP 130/82; PULSE 78; RESP 18; TEMP 36.7; O2SAT 98
--- OUTSIDE RECORDS SUMMARY | 2024-08-23 14:22 | XMS_ITS ---
Author Organization [facility] Medical Office Building [address] Address [address] [place] [address] Care Team Providers Care Linting Machine Operator Name Role Phone Elias Hair MD Unavailable [phone] Woody Bradley MD Primary Care Provider [phone] Herman MILNER MD PhD, Kamar Whitman Unavailable Deep Naranjo MD PhD Unavailable [phone] Noemy Parker MD Unavailable Kimberley Olguin MD Unavailable Active Problems Problem Noted Date Diagnosed Date BMI 36.0-36.9,adult 07/15/2024 Assessment & Plan (07/15/2024 3:12 PM CDT): Encourage 150min/week aerobic exericse. Healthy food chcoices. Severe obesity (BMI 35.0-39.9) with comorbidity 07/15/2024 Assessment & Plan (07/15/2024 3:12 PM CDT): As above. Hyperlipidemia 07/15/2024 Assessment & Plan (07/15/2024 3:12 PM CDT): Stable on statin medication and will continue on atorvastatin. No new myalgias/arthalgias. Gastroesophageal reflux disease 07/15/2024 Assessment & Plan (07/15/2024 3:12 PM CDT): Stable on famotidine and iwll follow repsonse. Postoperative hypothyroidism 07/15/2024 Adrenal adenoma 07/15/2024 Assessment & Plan (07/15/2024 3:13 PM CDT): Asypmtomatic, no change in function. Post-traumatic osteoarthritis, other specified s ite 03/07/2024 Ventral hernia without obstruction or gangrene 1 04/13/2023 Assessment & Plan (02/28/2024 2:13 PM WAREHOUSE HELPER): We have had talked with the patient about further course of action. The only reason we did not proceed with gastric sleeve surgery was because of the thyroid cancer. She was now recovered from this and has done well without regaining any of the weight she lost during that process. Ideally I would prefer to proceed with the sleeve gastrectomy, allow weight loss over the next 6 months and then fixed the hernia to give it the best chance of never returning. She said some of her physicians surrounding the thyroid had some hesitation for proceeding with the surgery. We will reach out to them to see if they have any contraindications before proceeding. If they do then we will just address the hernia and have discussed risk of recurrence given the obesity. Assessment & Plan (02/12/2024 10:48 AM WAREHOUSE HELPER): Reviwed CT scan. Reviewed ER warning s/s. Mahamed rrepsonse. Referral to Gen surgery for consutlation and evaluationl Dyspepsia 02/12/2024 Assessment & Plan (02/12/2024 10:48 AM WAREHOUSE HELPER): WIll refer to GI as patient having separate RUQ abdominal pain and sdyspepsia even with GERD therapy and deidre continue to follow reposnse. Bipolar affective disorder, remission status uns pecified 06/17/2023 Assessment & Plan (07/15/2024 3:11 PM CDT): MOod Is stable and continues on mood stablizing medications. WIll follow response. Morbid (severe) obesity due to excess calories 0 06/05/2023 Assessment & Plan (07/15/2024 12:25 PM CDT): The patient is doing quite well. We have encouraged her to do protein over anything. Continue calcium, multivitamin and vitamin-D. Exercise as tolerated. Continue to work with the dietitian and attend the monthly support groups. We will see her back in her six-month follow up. She can call sooner with any changes Assessment & Plan (02/12/2024 10:47 AM WAREHOUSE HELPER): Enocurage healthy food choices. Reivweed aerobic exericse targets of 150min/week aerobic exericse. Right knee pain 04/09/2023 Tear of lateral meniscus of right knee, current 03/01/2023 Chondrocalcinosis of right knee 12/13/2022 Post-traumatic osteoarthritis of right knee 11/25 Tear of LCL (lateral collate ral ligament) of knee, right, initial encounter 12/13/2022 Follicular thyroid cancer 09/28/2022 Cancer Staging:Pathologic stage from 08/15/2022:Stage I(pT1b, pN0, cM0, Age at diagnosis: < 55 years) - Signed by Florecita Luna MD on 09/28/2022 Assessment & Plan (07/15/2024 3:11 PM CDT): Continues surveillance and observation with endocrine and oncology. WIll monitor response. Assessment & Plan (02/27/2024 3:26 PM WAREHOUSE HELPER): Follicular thyroid cancer dx'd 07/11/22. Total thyroidectomy/parathyroidectom 08/02/22 with subsequent TORRES 09/29/22. 10/02/23 whole body scan shows resolution of uptake in previous scan. Continues to follow with Rad/onc; has appt 02/29/24. Will continue with goal of suppressed TSH with normal free T4. Will continue to monitor thyroglobulin. (Not drawn today as was just completed 10/01/23). Assessment & Plan (02/12/2024 10:47 AM WAREHOUSE HELPER): COntinue f/u with Dr. Parker, continues on suppressive levothyroixine therapy. Assessment & Plan (07/19/2023 11:20 AM CDT): Continue monitoring TG levels Keep TSH suppressed, with normal Free T4 Refer back for radio oncology for whole body thyroid scan followup Assessment & Plan (12/02/2022 2:16 PM CDT): Goal of treatment again is suppressed TSH with normal free T4 Monitoring with TG levels, as tumor marker The patient to follow-up with radio Oncology, probably repeat whole-body thyroid scan scan in 12 months History of diabetes mellitus 08/15/2022 Postsurgical hypothyroidism 08/15/2022 Assessment & Plan (02/27/2024 4:01 PM WAREHOUSE HELPER): Chronic problem. Last TFTs completed 06/2023 by our office and dropped 1/2 dose she was taking on Sundays. Currently taking levothyroxine 200mcg 6 days/wk. Labs by PCP 01/15/24 showing suppressed TSH & elevated T4. Will drop levothyroxine from Sunday-Sunday 200mcg to -Sunday 200mcg & 100mcg (1/2 tab) on Sunday. Aware to take 1st thing in morning, 30-60 minutes before food/drink/other medications. Repeat labs here in 2 months. Verified that she uses [facility]. Aware to check results/results letter in [employer]. Will contact by phone if needed. Assessment & Plan (07/19/2023 11:18 AM CDT): Chronic, overeplaced Lower Levothyroxine, 200 mcg 6 days a week Recheck TFTs in 3 month. Assessment & Plan (12/02/2022 1:40 PM CDT): Goal of treatment, was explained to the patient, to keep the TSH suppressed with normal free T4 Risks of over replacement was also explained including bone density loss and cardiac arrhythmia I recommended the patient to continue current dose of levothyroxine 200 mcg daily and will recheck TFTs in around 6 weeks The importance of taking the medication also on an empty stomach, specially apart from food and other medications was also discussed Heartburn 04/20/2022 Overview (04/20/2022): Added automatically from request for surgery [id number] Adrenal incidentaloma 03/23/2022 Assessment & Plan (12/02/2022 2:17 PM CDT): Repeat CT in 6 months Assessment & Plan (03/23/2022 3:30 PM WAREHOUSE HELPER): Patient with history of left adrenal mass , treated with adrenalectomy years ago due to large size. No history of adrenal cancer. CT scan on 01/15/22 Right adrenal mass 2.5X 1.4 cm Plan: We will check specific CT of the adrenal gland. Will do hormonal work up as indicated. Follow up and further recommendation will be decided based on above test results. Morbid obesity 11/08/2021 Assessment & Plan (04/04/2022 9:52 AM WAREHOUSE HELPER): Patient is set to see psych at the end of the month. That does last thing we are waiting for prior to submission. We will also follow up on the workup of her adrenal mass. We will see her back next month then for her final visit. Assessment & Plan (03/07/2022 9:28 AM WAREHOUSE HELPER): Continue small frequent meals. Continue to work with the dietitian and attend the monthly support group meetings. We will see her back next month for her six- month and final visit. Assessment & Plan (02/07/2022 8:41 AM WAREHOUSE HELPER): The patient has her upcoming appointment with the dietitian. She is working on seeing psych currently. Continue small frequent meals with goal calorie intake of 1200. Continue exercise regimen as tolerates shooting for 30 minutes of cardiovascular exercise 3 times a week. We will encourage her to attend the monthly support group meetings. We will see her back next month to reassess Assessment & Plan (01/03/2022 9:12 AM CDT): The patient has seen physical therapy. She is an upcoming appointment with the dietitian and psych. Continue to work on healthier lifestyle choices and how she is eating. Continue exercise as tolerates. She will continue with the monthly zoom meetings. We will see her back in 1 month to reassess. Assessment & Plan (12/06/2021 8:42 AM CDT): This month she is going to try and incorporate an exercise regimen to the good changes she is been making on the dietary side. We will see her back next month to reassess progress. Assessment & Plan (11/08/2021 9:12 AM CDT): Given their past success the patient would be a good candidate for weight loss surgery. We have gone over options such as the bypass and sleeve gastrectomy. We have also discussed risks and benefits such as blood clots, staple line leak as well as new or worsening reflux symptoms. They are in understanding. During this time will have them seen by the dietitian and psych. As we get closer to the time of surgery we will set him up for an EGD to look for hiatal hernia, H pylori or other gastric pathology. We will see them back in 4 weeks. They are in understanding of the plan. We have gone over small frequent meals shooting for a goal calorie intake of around 1600 spread throughout 4-5 meals. We have discussed not eating late at night. We have discussed cardiovascular exercise. Greater than 15 minutes was spent in counseling the patient on diet and exercise with regards to her morbid obesity. Mixed hyperlipidemia 11/08/2021 Assessment & Plan (03/23/2022 3:30 PM WAREHOUSE HELPER): Patient on statin - continue treatment per PCP Current Treatment and Therapy Plans No current plan information found. Past Treatment and Therapy Plans No past plan information found. Radiation Treatments (No Episode) * Course C1 09/29/2022 - 09/29/2022 Treatment Period Energy Fraction Dose Fractions Total Dose Plans Planned Thyroid_1 09/29/2022 - 09/29/2022 31 Reference Points Delivered Thyroid_1 09/29/2022 - 09/29/2022 Lifetime Dose Tracking * Chemical Lifetime Dose Automatic Entry Manual Entr y DLP 2,185 mGycm 2,185 mGycm 0 mGycm Resolved Problems Problem Noted Date Diagnosed Date Resolved Date BMI 45.0-49.9, adult 02/12/2024 025 Assessment & Plan (02/12/2024 10:48 AM WAREHOUSE HELPER): As above. Body mass index 40.0-44.9, adult ([facility]) 06/05/2023 07/15/2024 Assessment & Plan (05/22/2024 8:43 AM WAREHOUSE HELPER): We have discussed with the patient ensuring that she was doing small portions at a time and not trying to do too much in 1 setting. If she feels like she was getting dehydrated she can call the office and we can set her up with some IV fluids. We have also discussed possibilities such as gastroparesis as a cause of the nausea and perhaps trying her on some Reglan. I 1st went to see how the next few weeks ago as it may just be normal postoperative recovery. She will come back at that time, she will call sooner if anything changes beforehand Assessment & Plan (04/24/2024 8:52 AM WAREHOUSE HELPER): We have encouraged her to continue protein supplementation. Continue to advance diet as laid out in post bariatric handout. Okay for light duty but no heavy lifting more than 20 lb. Multivitamin, calcium and vitamin-D. We will see her back in 4 weeks. She will call sooner if anything changes. Hyperparathyroidism 06/30/2022 12/03/19 23 Overview (06/30/2022): Added automatically from request for surgery [id number] Essential hypertension 11/08/202108/15
--- OUTSIDE RECORDS SUMMARY | 2024-08-23 14:22 | XMS_ITS | Encounter Summary ---
Author Organization [facility] Address [address] [place] [address] Care Team Providers Care First Assistant Manager Name Role Phone Elias Hair MD Unavailable [phone] Woody Bradley MD Primary Care Provider [phone] Herman MILNER MD PhD, Kamar Whitman Unavailable Deep Naranjo MD PhD Unavailable [phone] Noemy Parker MD Unavailable Kimberley Olguin MD Unavailable Encounter Details Date Type Department Care Team (Late st Contact Info) Description 07/16/2024 Results Follow-Up [facility] Diabetes and Endocrinology [address] [place] [id number] Ximena Palacios, MASK INSPECTOR [address] [facility] [address] [place] [address] TSH, T4, free, T3, free Social History Tobacco Use Types Packs/Day Years [...] on file documented as of this encounter Miscellaneous Notes * Result Encounter Note - Ximena Palacios NP - 07/16/2024 5:28 PM CDT Jefferson Dooley, I have that you're currently taking Levothyroxine 200mcg Sunday through Sunday & none on Sundays. You're too hyperthyroid. Please take 1 tablet/200mcg Sunday through Sunday and 1/2 tablet on Sunday. I'd like for you to repeat your labs in 8-10 weeks but I see that you have an upcoming appointment. You can have them done when you're in to see me on September 03. Please call or send a [employer] message if any questions. Thank you, ARNOLDO Roque-c documented in this encounter Plan of Treatment Not on file documented as of this encounter Visit Diagnoses Not on filedocumented in this encounter Care Teams First Assistant Manager Relationship Specialty Start Date End Date Woody Bradley MD [address] [place] [address] PCP - General Family Medicine 06/05/23 Elias Hair MD [address] [place] [address] Referring Physician Psychiatry 08/15/22 Kamar Sutton III, MD PhD [address] [place] [address] Radiation Oncologist Radiation Oncology 10/02/23 Deep Naranjo MD PhD [address] [place] [address] Radiation Oncologist Radiation Oncology 10/02/23 [place] [id number] [address] Consulting Physician Endocrinology Diabetes & Metabolism 10/02/23 Kimberley Olguin MD [address] [facility] [address] [facility] [place] [address] Surgical Oncologist Surgical Oncology 10/02/23 documented as of this encounter
--- OUTSIDE RECORDS SUMMARY | 2024-08-23 14:22 | XMS_ITS | Encounter Summary ---
Author Organization [facility] Address [address] [place] [address] Care Team Providers Care Fish And Wildlife Warden Name Role Phone Unavailable Primary Care Provider Unavailabl e Reason for Visit * Diagnostic Imaging (Routine) - Pending Review Specialty Diagnoses / Procedures Referred By Contac t Referred To Contact Procedures Breast Imaging Screening Outside Reference Transcribed Order, Provider Referral ID Status Reason Start Date Expiration Date V isits Requested Visits Authorized [id number] Pending Review 02/15/2024 03/16/2025 1 1 Encounter Details Date Type Department Care Team (Late st Contact Info) Description 10/07/2019 Hospital Encounter [facility] [address] [place] [id number] Social History Tobacco Use Types Packs/Day Years [...] as of this encounter Functional Status * Audit-C Score Answer Date of Assessment Author 0 04/09/2024 11:09 AM Dannielle Sidhu RN * Question Answer Date of Assessment Author Q1: [...] Never 04/09/2024 11:09 AM Dannielle Sidhu RN documented as of this encounter Plan of Treatment Not on file documented as of this encounter Procedures Procedure Name Priority Date/Time Associated Diagnosis Comments BREAST IMAGING MG SCREENING OUTSIDE REFERENCE Routine 10/07/2019 12:00 AM CDT documented in this encounter Results * Breast Imaging Screening Outside Reference (10/07/2019 12:00 AM CDT) Impressions [facility] - 02/15/2024 9:13 AM PROFESSOR OF LEGAL STUDIES These images are for Reference purposes only and have not been reviewed by [facility] Radiology. There will be no report generated by a [facility] Radiologist. Narrative [facility] - 02/15/2024 9:13 AM PROFESSOR OF LEGAL STUDIES EXAMINATION: Images For Reference Purposes Only us Provider Transcribed Order IMG MAMMO PROCEDURES Final Result [facility] documented in this encounter Visit Diagnoses Not on filedocumented in this encounter
--- OUTSIDE RECORDS SUMMARY | 2024-08-23 14:22 | XMS_ITS | Clinical Summary ---
Author Organization [facility] Medical Office Building B Address [address] [place] [address] Care Team Providers Care Welding Setter Name Role Phone Elias Hair MD Unavailable [phone] Woody Bradley MD Primary Care Provider [phone] Herman MILNER MD PhD, Kamar Whitman Unavailable Deep Naranjo MD PhD Unavailable [phone] Noemy Parker MD Unavailable Kimberley Olguin MD Unavailable Allergies No known active allergies Medications atorvastatin (LIPITOR) 40 mg tablet Take 1 tablet (40 mg total) by mouth daily 2 Active LORazepam (ATIVAN) 1 mg tablet Take by mouth 3 (three) times a day as needed 2 Active lamoTRIgine (LaMICtal) 100 mg tablet Take 1 tablet (100 mg total) by mouth daily In morning 2 Active topiramate (TOPAMAX) 100 mg tabletIndications:M igraine Prevention Take 1 tablet (100 mg total) by mouth daily 50 mg in morning and 100 mg at night Active prazosin (MINIPRESS) 1 mg capsule TAKE 1 CAPSULE EVERY NIGHT AT BEDTIME 4 Active topiramate (TOPAMAX) 50 mg tablet TAKE 1 TABLET EACH MORNING AND 2 TABLETS EACH EVENING 4 Active levothyroxine (SYNTHROID) 200 mcg tabletIndications:P ostsurgical hypothyroidism TAKE 1 TABLET BY MOUTH EVERY DAY ON SUNDAY-, NOTHING ON SUNDAY 77 tablet 3 4 Active famotidine (PEPCID) 20 mg tablet Take 1 tablet (20 mg total) by mouth 2 (two) times a day 60 tablet 11 5 04/17/19 26 Active Active Problems Problem Noted Date Diagnosed Date [...] 04/13/2023 Assessment & Plan (02/28/2024 2:13 PM CREDIT COLLECTIONS SPECIALIST): We have had talked with the patient [...] obesity. Assessment & Plan (02/12/2024 10:48 AM CREDIT COLLECTIONS SPECIALIST): Reviwed CT scan. Reviewed ER warning s/s. Mahamed rrepsonse. Referral to Gen surgery for consutlation and evaluationl Dyspepsia 02/12/2024 Assessment & Plan (02/12/2024 10:48 AM CREDIT COLLECTIONS SPECIALIST): WIll refer to GI as patient having [...] changes Assessment & Plan (02/12/2024 10:47 AM CREDIT COLLECTIONS SPECIALIST): Enocurage healthy food choices. Reivweed aerobic exericse [...] response. Assessment & Plan (02/27/2024 3:26 PM CREDIT COLLECTIONS SPECIALIST): Follicular thyroid cancer dx'd 07/11/22. Total thyroidectomy/parathyroidectom 08/02/22 with subsequent TORRES 09/29/22. 10/02/23 whole body scan shows resolution of uptake in previous scan. Continues to follow with Rad/onc; has appt 02/29/24. Will continue with goal of suppressed TSH with normal free T4. Will continue to monitor thyroglobulin. (Not drawn today as was just completed 10/01/23). Assessment & Plan (02/12/2024 10:47 AM CREDIT COLLECTIONS SPECIALIST): COntinue f/u with Dr. Parker, continues on [...] 08/15/2022 Assessment & Plan (02/27/2024 4:01 PM CREDIT COLLECTIONS SPECIALIST): Chronic problem. Last TFTs completed 06/2023 by [...] in 2 months. Verified that she uses mychart. Aware to check results/results letter in [facility]. Will contact by phone if needed. Assessment [...] (04/20/2022): Added automatically from request for surgery [id number] Adrenal incidentaloma 03/23/2022 Assessment & Plan (12/02/2022 2:17 PM CDT): Repeat CT in 6 months Assessment & Plan (03/23/2022 3:30 PM CREDIT COLLECTIONS SPECIALIST): Patient with history of left adrenal mass [...] 11/08/2021 Assessment & Plan (04/04/2022 9:52 AM CREDIT COLLECTIONS SPECIALIST): Patient is set to see psych at the end of the month. That does last thing we are waiting for prior to submission. We will also follow up on the workup of her adrenal mass. We will see her back next month then for her final visit. Assessment & Plan (03/07/2022 9:28 AM CREDIT COLLECTIONS SPECIALIST): Continue small frequent meals. Continue to work with the dietitian and attend the monthly support group meetings. We will see her back next month for her six- month and final visit. Assessment & Plan (02/07/2022 8:41 AM CREDIT COLLECTIONS SPECIALIST): The patient has her upcoming appointment with [...] 11/08/2021 Assessment & Plan (03/23/2022 3:30 PM CREDIT COLLECTIONS SPECIALIST): Patient on statin - continue treatment per PCP Resolved Problems Problem Noted Date Diagnosed Date Resolved Date BMI 45.0-49.9, adult 02/12/2024 025 Assessment & Plan (02/12/2024 10:48 AM CREDIT COLLECTIONS SPECIALIST): As above. Body mass index 40.0-44.9, adult ([facility]) 06/05/2023 07/15/2024 Assessment & Plan (05/22/2024 8:43 AM CREDIT COLLECTIONS SPECIALIST): We have discussed with the patient ensuring [...] beforehand Assessment & Plan (04/24/2024 8:52 AM CREDIT COLLECTIONS SPECIALIST): We have encouraged her to continue protein supplementation. Continue to advance diet as laid out in post bariatric handout. Okay for light duty but no heavy lifting more than 20 lb. Multivitamin, calcium and vitamin-D. We will see her back in 4 weeks. She will call sooner if anything changes. Hyperparathyroidism 06/30/2022 12/03/19 23 Overview (06/30/2022): Added automatically from request for surgery [id number] Essential hypertension 11/08/202108/15 Encounters Date Type Department Care Team Description 07/16/2024 Results Follow-Up [facility] Diabetes and Endocrinology [address] [place] [phone] Ximena Palacios NP TSH, T4, free, T3, free 07/15/2024 3:30 PM CDT Lab [facility] Outpatient Lab at [address] [phone] Hyperlipidemia (Primary Dx); Mixed hyperlipidemia 07/15/2024 3:28 PM CDT - 07/15/2024 11:59 PM CDT Hospital Encounter [address] [address] Postsurgical hypothyroidism Discharge Disposition: Discharge to home or self care 07/15/2024 3:21 PM CDT - 07/15/2024 11:59 PM CDT Hospital Encounter [address] [address] Postoperative hypothyroidism; Hyperlipidemia, unspecified hyperlipidemia type Discharge Disposition: Discharge to home or self care 07/15/2024 2:45 PM CDT Office Visit [facility] Primary Care at [address] [phone] Woody Bradley MD Hyperlipidemia, unspecified hyperlipidemia type (Primary Dx); Postoperative hypothyroidism; Follicular thyroid cancer (HCC); Bipolar affective disorder, remission status unspecified (HCC); Severe obesity (BMI 35.0-39.9) with comorbidity (HCC); BMI 36.0-36.9,adult; Gastroesophageal reflux disease, unspecified whether esophagitis present; Adrenal adenoma, unspecified laterality 07/15/2024 10:40 AM CDT Office Visit [address] [place] [address] Luciano Beckford MD Morbid (severe) obesity due to excess calories (HCC) (Primary Dx) from Last 3 Months Immunizations Immunization Administration Dates Next Due Influenza, Quadrivalent, Spl it, Intramuscular 01/17/2019,12/25/2017 Influenza, Quadrivalent, Spl it, Preservative Free, Intramuscular 12/09/2015 Influenza, Trivalent, IM (MDV) 01/09/2013 Influenza, Trivalent, Preser vative Free, Intramuscular 02/12/2024,12/24/2014 Influenza, Unspecified 06/05/2023(Deferr ed: Patient Refused),03/26/2023(Deferred: Patient Refused),03/26/2023(Deferred: Patient Refused),03/26/2022(Deferred: Patient Refused) Pneumococcal Polysaccharide PPV23 01/09/2013 TD Preservative Free 12/09/2016 Surgical History Surgery Date Site/Laterality Comments HYSTERECTOMY endometriosis HERNIA REPAIR TONSILLECTOMY ROTATOR CUFF REPAIR Left OVARIAN CYST SURGERY ORIF TIBIA & FIBULA FRACTURES Right APPENDECTOMY THYROIDECTOMY 08/02/2022 ADRENALECTOMY 03/26/2013 - 03/25/2014 Left left adrenal gland removed KNEE ARTHROSCOPY W/ LATERAL RELEASE Right FRACTURE SURGERY ABDOMINAL SURGERY PARATHYROIDECTOMY 08/02/2022 SLEEVE GASTROPLASTY 04/16/2024 Medical History Medical History Date Comments Anxiety Depression Thyroid disease Kidney stone Diabetes (HCC) resolved with wt loss Essential hypertension 11/08/2021 Bipolar affective disorder (HCC) Cancer (HCC) thyroid cancer Headache hemiplegic migra evans, right side affected Family History Medical History Relation Name Comments No Known Problems Father Cervical cancer Maternal Grandmother Cervical cancer Mother Anesthesia problems Neg Hx Colon cancer Neg Hx Relation Name Status Comments Father Alive Maternal Grandmother Mother Alive Social History Tobacco Use Types Packs/Day Years Used Date Smoking Tobacco: Former Cigarettes Q uit: 2020 Passive Smoke Exposure: Never Smokeless Tobacco: Never Tobacco Cessation:Counseling Given: Not Answered AUDIT-C Answer Date Recorded Q1: How often [...] on file Sexual Orientation Not on file Obstetrics History Last Filed Vital Signs Vital Sign Reading Time Taken Comments Blood Pressure 102/68 07/15/2024 2:31 PM CDT Pulse 68 07/15/2024 2:31 PM CDT Temperature 36.7 C (98 F) 07/15/2024 2:31 PM CDT Respiratory Rate 20 07/15/2024 2:31 PM CDT Oxygen Saturation 97% 07/15/2024 2:31 PM CDT Inhaled Oxygen Concentration - - Weight 96.6 kg (213 lb) 07/15/2024 2:31 PM CDT Height 162.6 cm (5' 4) 07/15/2024 2:31 PM CDT Body Mass Index 36.56 07/15/2024 2:31 PM CDT Plan of Treatment Health Maintenance Due Date Last Done Comments Colon Cancer Screening-Colonoscopy 1977 Hepatitis C Screening 1975 Hepatitis B Screening 09/08/1995 Regular Well Visit/Exam 18-64 09/08/1995 DTaP/Tdap/Td Vaccine (1 - Tdap) 12/10/2016 12/09/2016 Covid-19 Vaccine (3 - 2023- season) 2023 04/26/2021, 06/30/2020 Breast Cancer Screening-Mammogram 02/28/2025 02/29/2024, 01/25/2022, 10/07/2019 Depression Screening 07/15/2025 07/15/2024, 02/12/2024, 01/15/2024, Additional history exists Pneumococcal vaccine <65 Aged Out 01/09/2013 No longer eligible based on patient's age to complete this topic Influenza Vaccine Completed 02/12/2024, , 12/25/2017, Additional history exists HPV Vaccines Aged Out No longer eligi ble based on patient's age to complete this topic Procedures Procedure Name Priority Date/Time Associated Diagnosis Comments EGFR Routine 07/15/2024 3:21 PM CDT Hyperlipidemia, unspecified hyperlipidemia type DIFFERENTIAL AUTO Routine 07/15/2024 3:2 1 PM CDT Hyperlipidemia, unspecified hyperlipidemia type LIPID PANEL Routine 07/15/2024 3:21 PM CDT Hyperlipidemia, unspecified hyperlipidemia type CBC WITH AUTO DIFFERENTIAL Routine 07/15/2024 3:21 PM CDT Hyperlipidemia, unspecified hyperlipidemia type COMPREHENSIVE METABOLIC PANEL Routine 07/15/2024 3:21 PM CDT Hyperlipidemia, unspecified hyperlipidemia type TSH Routine 07/15/2024 3:21 PM CDT Postoperative hypothyroidism T4, FREE Routine 07/15/2024 3:21 PM CDT Postoperative hypothyroidism T3, FREE Routine 07/15/2024 3:21 PM CDT Postsurgical hypothyroidism T4, FREE Routine 07/15/2024 3:21 PM CDT Postsurgical hypothyroidism TSH Routine 07/15/2024 3:21 PM CDT Postsurgical hypothyroidism SCREENING MAMMOGRAM BILATERAL W CYRUS Schedule Routine, Read Routine (OP Routine) 02/29/2024 11:02 AM CREDIT COLLECTIONS SPECIALIST Screening mammogram, encounter for from Last 3 Months or Most Recently Relevant to Health Maintenance Results * eGFR (07/15/2024 3:21 PM CDT) eGFR >90 >=60 mL/min/1. 73 m2 Comment: Interpretive Data Reference Interval Normal >/= 90 mL/min/1.73m2 Mildly decreased* 60 - 89 mL/min/1.73m2 Mildly to moderately decreased 45 - 59 mL/min/1.73m2 Moderately to severely decreased 30 - 44 mL/min/1.73m2 Severely decreased 15 - 29 mL/min/1.73m2 Kidney Failure < 15 mL/min/1.73m2 *Relative to young adult level Estimated glomerular filtration rate is determined by the 2020 CKD-EPI equation recommended by the National Kidney Foundation (A Unifying Approach to GFR Estimation: Recommendations of the NKF-ASK Task Force on Reassessing the Inclusion of Race in Diagnosing Kidney Disease, JASN 2020). The CKD-EPI equation should not be used for patients with unstable renal function and has not been validated in children and those over 70. Current interpretive data was last reviewed 2021. Blood 07/15/2024 3:21 PM CDT 07/15/2024 9:27 PM CDT us Woody Bradley MD LAB BLOOD ORDERABLES Chana adam Result [facility] [address] [place] [address] * (ABNORMAL) Differential, auto (07/15/2024 3:21 PM CDT) Neutrophil abs 4.82 1.50 - 6.50 K/cumm Imm gran abs 0.04 0.00 - 0.10 K/cumm [facility] Lymphocyte abs 3.39(H) 0.80 - 3.30 K/cumm [facility] Monocyte abs 0.60 0.20 - 0.80 K/cumm [facility] Eosinophil abs 0.32 0.00 - 0.50 K/cumm [facility] Basophil abs 0.07 0.00 - 0.10 K/cumm [facility] Neutrophil pct 52.1 % [facility] Comment: Interpretive Data Percent cell count reference ranges are not reported, since discordance with absolute values may lead to misinterpretation of CBC data. Current Interpretive Data was last revised on 2017. Imm gran pct 0.4 % [facility] Comment: Interpretive Data Percent cell count reference ranges are not reported, since discordance with absolute values may lead to misinterpretation of CBC data. Current Interpretive Data was last revised on 2017. Lymphocyte pct 36.7 % [facility] Comment: Interpretive Data Percent cell count reference ranges are not reported, since discordance with absolute values may lead to misinterpretation of CBC data. Current Interpretive Data was last revised on 2017. Monocyte pct 6.5 % [facility] Comment: Interpretive Data Percent cell count reference ranges are not reported, since discordance with absolute values may lead to misinterpretation of CBC data. Current Interpretive Data was last revised on 2017. Eosinophil pct 3.5 % [facility] Comment: Interpretive Data Percent cell count reference ranges are not reported, since discordance with absolute values may lead to misinterpretation of CBC data. Current Interpretive Data was last revised on 2017. Basophil pct 0.8 % [facility] Comment: Interpretive Data Percent cell count reference ranges are not reported, since discordance with absolute values may lead to misinterpretation of CBC data. Current Interpretive Data was last revised on 2017. Blood 07/15/2024 3:21 PM CDT 07/15/2024 9:27 PM CDT Woody Bradley MD LAB BLOOD ORDERABLES Chana medina Result [facility] [address] Department [place] [address] * (ABNORMAL) CBC with auto differential (07/15/2024 3:21 PM CDT) WBC 9.24 3.80 - 9.90 K/cumm Hgb 15.5 11.9 - 15.5 g/dL [facility] Hct 48.0(H) 35.6 - 45.5 % [facility] Plt 343 150 - 400 K/cumm [facility] MPV 11.1 9.1 - 12.3 fL [facility] RBC 5.61(H) 3.90 - 5.20 M/cumm [facility] MCV 85.6 81.3 - 96.4 fL [facility] MCH 27.6 27.1 - 33.3 pg [facility] MCHC 32.3 32.3 - 35.7 g/dL [facility] RDW CV 16.0(H) 11.1 - 14.9 % [facility] RDW SD 49.7(H) 35.7 - 48.1 fL [facility] NRBC abs 0.00 0.00 - 0.01 K/cumm [facility] Blood 07/15/2024 3:21 PM CDT 07/15/2024 9:27 PM CDT Woody Bradley MD LAB BLOOD ORDERABLES Chana l Result Performing Organization Address [facility] Co de Phone Number DANIEL [address] [facility] [place] [address] * T3, free (07/15/2024 3:21 PM CDT) Free T3 3.7 2.0 - 4.4 pg/mL Blood 07/15/2024 3:21 PM CDT 07/15/2024 9:27 PM CDT us Ximena Palacios NP LAB BLOOD ORDERABLES Chana l Result Performing Organization Address [facility] de Phone Number HALLEYBREANNE [address] [facility] [place] [address] * (ABNORMAL) TSH (07/15/2024 3:21 PM CDT) Thyroid Stimulating Hormone 0.01(L) 0.30 - 4.20 mcIUnit/mL Blood 07/15/2024 3:21 PM CDT 07/15/2024 9:27 PM CDT Woody Bradley MD LAB BLOOD ORDERABLES Chana l Result Performing Organization Address [facility] Co de Phone Number HALLEYBREANNE [address] [facility] [place] [address] * (ABNORMAL) TSH (07/15/2024 3:21 PM CDT) Thyroid Stimulating Hormone 0.01(L) 0.30 - 4.20 mcIUnit/mL Blood 07/15/2024 3:21 PM CDT 07/15/2024 9:27 PM CDT us Ximena Palacios NP LAB BLOOD ORDERABLES Chana l Result DANIEL [address] [facility] [place] [address] * (ABNORMAL) T4, free (07/15/2024 3:21 PM CDT) Free T4 2.27(H) 0.90 - 1.70 ng/dL Blood 07/15/2024 3:21 PM CDT 07/15/2024 9:27 PM CDT us Woody Bradley MD LAB BLOOD ORDERABLES Chana l Result Performing Organization Address [facility]/ZIP Co de Phone Number [facility] [address] [address] [facility] [place] [address] * (ABNORMAL) T4, free (07/15/2024 3:21 PM CDT) Free T4 2.34(H) 0.90 - 1.70 ng/dL Blood 07/15/2024 3:21 PM CDT 07/15/2024 9:27 PM CDT us Ximena Palacios NP LAB BLOOD ORDERABLES Chana l Result Performing Organization Address [facility] Co de Phone Number DANIEL [address] [address] [facility] [place] [address] * (ABNORMAL) Lipid panel (07/15/2024 3:21 PM CDT) Pathologist [facility] Cholesterol 160 30 - 199 mg/dL Comment: Interpretive Data Ages < or = 19 years Acceptable: <170 mg/dL Borderline high: 170-199 mg/dL High: >or= 200 mg/dL Ages > or = 20 years Desirable: <200 mg/dL Borderline high: 200-239 mg/dL High: >or= 240 mg/dL Literature References: 1. Expert Panel on Integrated Guidelines for Cardiovascular Health and Risk Reduction in Children and Adolescents. Pediatrics 2011;128:S213 2. NCEP Expert Panel. Circulation 2004;110:227 Current Interpretive Data was last revised on 2017. Triglycerides 122 <=149 mg/dL [facility] Comment: Interpretive Data Ages < or = 9 years Acceptable: <75 mg/dL Borderline high: 75-99 mg/dL High: >or= 100 mg/dL Ages 10 to 20 years Acceptable: <90 mg/dL Borderline high: 90-129 mg/dL High: >or= 130 mg/dL Ages > or = 20 years Desirable: <150 mg/dL Borderline high: 150-199 mg/dL High: 200-499 mg/dL Very high: >or= 499 mg/dL Literature References: 1. Expert Panel on Integrated Guidelines for Cardiovascular Health and Risk Reduction in Children and Adolescents. Pediatrics 2011;128:S213 2. NCEP Expert Panel. Circulation 2004;110:227 Current Interpretive Data was last revised on 2017. HDL 36(L) >=40 mg/dL DANIEL Comment: Interpretive Data Ages < or = 19 years Acceptable: >45 mg/dL Borderline low: 40-45 mg/dL Low: <40 mg/dL Ages > or = 20 years Desirable: >or= 60 mg/dL Low: <40 mg/dL Literature References: 1. Expert Panel on Integrated Guidelines for Cardiovascular Health and Risk Reduction in Children and Adolescents. Pediatrics 2011;128:S213 2. NCEP Expert Panel. Circulation 2004;110:227 Current Interpretive Data was last revised on 2017. LDL, calculated 102 <=129 mg/dL DANIEL Comment: Interpretive Data Ages < or = 19 years Acceptable: <110 mg/dL Borderline high: 110-129 mg/dL High: >or= 130 mg/dL Ages > or = 20 years Optimal: <100 mg/dL Near optimal: 100-129 mg/dL Borderline high: 130-159 mg/dL High: >160 mg/dL Calculated using the Marck LDL-C estimating equation. This equation was implemented on 2023. Prior to this date LDL-C was estimated using the Friedewald equation. Literature References: 1. Expert Panel on Integrated Guidelines for Cardiovascular Health and Risk Reduction in Children and Adolescents. Pediatrics 2011;128:S213 2. NCEP Expert Panel. Circulation 2004;110:227 3. Marck Amaya al. UYEN Cardiol. 2020 July 24;5(5):540-548. doi: 10.1001/jamacardio.2020.0013 Current Interpretive Data was last revised on 2023. Non-HDL Cholesterol 124 mg/dL [facility] Comment: Interpretive Data Ages < or = 19 years Acceptable: <120 mg/dL Borderline high: 120-144 mg/dL High: >145 mg/dL Ages > or = 20 years When triglycerides are >200 mg/dL, Non-HDL cholesterol is a secondary target of therapy with treatment goals that are 30 mg/dL greater than the LDL cholesterol target. Literature References: 1. Expert Panel on Integrated Guidelines for Cardiovascular Health and Risk Reduction in Children and Adolescents. Pediatrics 2011;128:S213 2. NCEP Expert Panel. Circulation 2004;110:227 Current Interpretive Data was last revised on 2017. Chol/HDL ratio 4 [facility] Blood 07/15/2024 3:21 PM CDT 07/15/2024 9:27 PM CDT us Woody Bradley MD LAB BLOOD ORDERABLES Chana medina Result [facility] [address] Department [place] [address] * Comprehensive metabolic panel (07/15/2024 3:21 PM CDT) Sodium 139 135 - 145 mmol/L Potassium, pl 4.0 3.3 - 4.9 mmol/L [facility] Chloride 104 97 - 110 mmol/L [facility] CO2 22 22 - 32 mmol/L [facility] Anion gap 13 2 - 15 mmol/L [facility] BUN 12 6 - 25 mg/dL [facility] Creatinine 0.60 0.60 - 1.10 mg/dL [facility] Glucose 89 70 - 199 mg/dL [facility] Comment: Interpretive Data Fasting glucose >/= 126 mg/dl is diagnostic for diabetes. Fasting is defined as no caloric intake for at least 8 hours. Fasting glucose between 100 mg/dl to 125 mg/dl is diagnostic of prediabetes. In a patient with classic symptoms of hyperglycemia or hyperglycemic crisis, a random glucose >/= 200 mg/dl is diagnostic for diabetes. In the absence of unequivocal hyperglycemia, results should be confirmed by repeat testing. The classification and Diagnosis of Diabetes Diabetes Care 202; 46: S19-S40. Current interpretive data was last revised 2022. Calcium 9.5 8.5 - 10.3 mg/dL [facility] Bilirubin, total 0.4 0.1 - 1.2 mg/dL [facility] Protein, pl 7.1 6.5 - 8.5 g/dL [facility] Albumin 4.0 3.5 - 5.0 g/dL [facility] Alk phos 60 40 - 130 Units/L [facility] ALT 11 7 - 45 Units/L [facility] AST 25 10 - 45 Units/L [facility] Blood 07/15/2024 3:21 PM CDT 07/15/2024 9:27 PM CDT us Woody Bradley MD LAB BLOOD ORDERABLES Chana l Result [facility] [address] [place] [address] * Screening Mammogram Bilateral W Cyrus (02/29/2024 11:02 AM CREDIT COLLECTIONS SPECIALIST) Anatomical Region Laterality Modality Breast Bilateral Mammography Narrative 03/03/2024 12:13 PM CREDIT COLLECTIONS SPECIALIST Mammogram Technique: Bilateral Digital Breast Tomosynthesis, Bilateral C-view 2D Screening mammogram. Views obtained: bilateral craniocaudal and bilateral mediolateral oblique. Computer Aided Detection was performed. Mammogram Findings: The present examination has been compared to prior imaging studies performed at [facility] on 10/07/2019 and 01/25/2022. There are scattered areas of fibroglandular density. There are multiple masses in both breasts. There are no significant changes from the prior study. There is no suspicious abnormality in either breast. Impression: There is no mammographic evidence of malignancy. Annual screening mammography is recommended. OVERALL FINAL ASSESSMENT: BI-RADS CATEGORY 2: Benign. Procedure Note Mabel Rodriguez MD - 03/03/2024 Mammogram Technique: Bilateral Digital Breast Tomosynthesis, Bilateral C-view 2D Screening mammogram. Views obtained: bilateral craniocaudal and bilateral mediolateral oblique. Computer Aided Detection was performed. Mammogram Findings: The present examination has been compared to prior imaging studies performed at [facility] on 10/07/2019 and 01/25/2022. There are scattered areas of fibroglandular density. There are multiple masses in both breasts. There are no significantchanges from the prior study. There is no suspicious abnormality in either breast. Impression: There is no mammographic evidence of malignancy. Annual screening mammography is recommended. OVERALL FINAL ASSESSMENT: BI-RADS CATEGORY 2: Benign. Kimberley Olguin MD IMG MAMMO PROCEDURES Final Resul t from Last 3 Months or Most Recently Relevant to Health Maintenance Insurance MEDICARE IDTN IDTN MEDICARE MEDICARE [facility] Advance Directives For more information, please contact: [phone] * Full Code (Latest Code Status on File) Date Activated Date Inactivated Comments 04/16/2024 11:29 AM 04/17/2024 6:34 PM * Full Code Date Activated Date Inactivated Comments 08/02/2022 6:51 PM 08/03/2022 2:32 PM * Full Code Date Activated Date Inactivated Comments 05/02/2022 11:53 AM 05/02/2022 6:21 PM * Full Code Date Activated Date Inactivated Comments 05/02/2022 11:53 AM 05/02/2022 11:53 AM Care Teams Welding Setter Relationship Specialty Start Date End Date Woody Bradley MD [address] [place] [address] PCP - General Family Medicine 06/05/23 Elias Hair MD [address] [facility] [place] [address] Referring Physician Psychiatry 08/15/22 Kamar Sutton III, MD PhD [address] [place] [address] Radiation Oncologist Radiation Oncology 10/02/23 Deep Naranjo MD PhD [address] [place] [address] Radiation Oncologist Radiation Oncology 10/02/[address] [place] [address] [facility] [address] [place] [address] Consulting Physician Endocrinology Diabetes & Metabolism 10/02/23 Kimberley Olguin MD [address] [facility] [address] [facility] [place] [address] Surgical Oncologist Surgical Oncology 10/02/23
--- OUTSIDE RECORDS SUMMARY | 2024-08-23 14:22 | XMS_ITS | Referral Summary ---
Author Organization [facility] Medical Office Building B Address [address] [place] [address] Care Team Providers Care Exposure Machine Operator Name Role Phone Elias Hair MD Unavailable [phone] Woody Bradley MD Primary Care Provider [phone] Herman MILNER MD PhD, Kamar Whitman Unavailable Deep Naranjo MD PhD Unavailable [phone] Noemy Parker MD Unavailable Kimberley Olguin MD Unavailable Encounters Date Type Department Care Team Description 07/16/2024 Results Follow-Up [facility] Diabetes and Endocrinology [address] [place] [phone] Ximena Palacios, TONY TSH, T4, free, T3, free 07/15/2024 3:21 PM CDT - 07/15/2024 11:59 PM CDT Hospital Encounter [address] [address] Postoperative hypothyroidism; Hyperlipidemia, unspecified hyperlipidemia type Discharge Disposition: Discharge to home or self care 07/15/2024 3:28 PM CDT - 07/15/2024 11:59 PM CDT Hospital Encounter [address] [address] Postsurgical hypothyroidism Discharge Disposition: Discharge to home or self care 07/15/2024 3:30 PM CDT Lab [facility] Outpatient Lab at [address] [phone] Hyperlipidemia (Primary Dx); Mixed hyperlipidemia 07/15/2024 10:40 AM CDT Office Visit [address] [place] [phone] Luciano Beckford MD Morbid (severe) obesity due to excess calories (HCC) (Primary Dx) 07/15/2024 2:45 PM CDT Office Visit [facility] Primary Care at [address] [phone] Woody Bradley MD Hyperlipidemia, unspecified hyperlipidemia type (Primary Dx); Postoperative hypothyroidism; Follicular thyroid cancer (HCC); Bipolar affective disorder, remission status unspecified (HCC); Severe obesity (BMI 35.0-39.9) with comorbidity (HCC); BMI 36.0-36.9,adult; Gastroesophageal reflux disease, unspecified whether esophagitis present; Adrenal adenoma, unspecified laterality from Last 3 Months Allergies No known active allergies Medications atorvastatin [...] 04/13/2023 Assessment & Plan (02/28/2024 2:13 PM DISPATCH ASSOCIATE): We have had talked with the patient [...] obesity. Assessment & Plan (02/12/2024 10:48 AM DISPATCH ASSOCIATE): Reviwed CT scan. Reviewed ER warning s/s. Mahamed rrepsonse. Referral to Gen surgery for consutlation and evaluationl Dyspepsia 02/12/2024 Assessment & Plan (02/12/2024 10:48 AM DISPATCH ASSOCIATE): WIll refer to GI as patient having [...] changes Assessment & Plan (02/12/2024 10:47 AM DISPATCH ASSOCIATE): Enocurage healthy food choices. [facility] aerobic exericse targets of 150min/week aerobic exericse. [...] response. Assessment & Plan (02/27/2024 3:26 PM DISPATCH ASSOCIATE): Follicular thyroid cancer dx'd 07/11/22. Total thyroidectomy/parathyroidectom 08/02/22 with subsequent TORRES 09/29/22. 10/02/23 whole body scan shows resolution of uptake in previous scan. Continues to follow with Rad/onc; has appt 02/29/24. Will continue with goal of suppressed TSH with normal free T4. Will continue to monitor thyroglobulin. (Not drawn today as was just completed 10/01/23). Assessment & Plan (02/12/2024 10:47 AM DISPATCH ASSOCIATE): COntinue f/u with Dr. Parker, continues on [...] 08/15/2022 Assessment & Plan (02/27/2024 4:01 PM DISPATCH ASSOCIATE): Chronic problem. Last TFTs completed 06/2023 by [...] in 2 months. Verified that she uses [employer]. Aware to check results/results letter in [employer]. Will contact by phone if needed. Assessment [...] (04/20/2022): Added automatically from request for surgery [id number] Adrenal incidentaloma 03/23/2022 Assessment & Plan (12/02/2022 2:17 PM CDT): Repeat CT in 6 months Assessment & Plan (03/23/2022 3:30 PM DISPATCH ASSOCIATE): Patient with history of left adrenal mass [...] 11/08/2021 Assessment & Plan (04/04/2022 9:52 AM DISPATCH ASSOCIATE): Patient is set to see psych at the end of the month. That does last thing we are waiting for prior to submission. We will also follow up on the workup of her adrenal mass. We will see her back next month then for her final visit. Assessment & Plan (03/07/2022 9:28 AM DISPATCH ASSOCIATE): Continue small frequent meals. Continue to work with the dietitian and attend the monthly support group meetings. We will see her back next month for her six- month and final visit. Assessment & Plan (02/07/2022 8:41 AM DISPATCH ASSOCIATE): The patient has her upcoming appointment with [...] 11/08/2021 Assessment & Plan (03/23/2022 3:30 PM DISPATCH ASSOCIATE): Patient on statin - continue treatment per PCP Resolved Problems Problem Noted Date Diagnosed Date Resolved Date BMI 45.0-49.9, adult 02/12/2024 025 Assessment & Plan (02/12/2024 10:48 AM DISPATCH ASSOCIATE): As above. Body mass index 40.0-44.9, adult ([facility]) 06/05/2023 07/15/2024 Assessment & Plan (05/22/2024 8:43 AM DISPATCH ASSOCIATE): We have discussed with the patient ensuring [...] beforehand Assessment & Plan (04/24/2024 8:52 AM DISPATCH ASSOCIATE): We have encouraged her to continue protein supplementation. Continue to advance diet as laid out in post bariatric handout. Okay for light duty but no heavy lifting more than 20 lb. Multivitamin, calcium and vitamin-D. We will see her back in 4 weeks. She will call sooner if anything changes. Hyperparathyroidism 06/30/2022 12/03/19 Overview (06/30/2022): Added automatically from request for surgery [id number] Essential hypertension 11/08/202108/15 Immunizations Immunization Administration Dates Next Due Influenza, Quadrivalent, Spl it, Intramuscular 01/17/2019,12/25/2017 Influenza, Quadrivalent, Spl it, Preservative Free, Intramuscular 12/09/2015 Influenza, Trivalent, IM (MDV) 01/09/2013 Influenza, Trivalent, Preser vative Free, Intramuscular 02/12/2024,12/24/2014 Influenza, Unspecified 06/05/2023(Deferr ed: Patient Refused),03/26/2023(Deferred: Patient Refused),03/26/2023(Deferred: Patient Refused),03/26/2022(Deferred: Patient Refused) Pneumococcal Polysaccharide PPV23 01/09/2013 TD Preservative Free 12/09/2016 Social History Tobacco Use Types Packs/Day Years Used Date Smoking Tobacco: Former Cigarettes Q uit: 2019 Passive Smoke Exposure: Never Smokeless Tobacco: Never [...] on file Sexual Orientation Not on file Last Filed Vital Signs Vital Sign Reading [...] 07/15/2024 2:31 PM CDT Plan of Treatment Not on file Procedures Procedure Name Priority Date/Time Associated Diagnosis [...] Read Routine (OP Routine) 02/29/2024 11:02 AM DISPATCH ASSOCIATE Screening mammogram, encounter for from Last 3 [...] MD LAB BLOOD ORDERABLES Chana medina Result [facility] [address] Department [place] [address] * (ABNORMAL) Differential, auto (07/15/2024 3:21 PM CDT) Neutrophil abs 4.82 1.50 - 6.50 K/cumm Imm gran abs 0.04 0.00 - 0.10 K/cumm [facility] Lymphocyte abs 3.39(H) 0.80 - 3.30 K/cumm [facility] Monocyte abs 0.60 0.20 - 0.80 K/cumm [facility] Eosinophil abs 0.32 0.00 - 0.50 K/cumm [facility] Basophil abs 0.07 0.00 - 0.10 K/cumm [facility] Neutrophil pct 52.1 % DANIEL Comment: Interpretive Data Percent cell count reference ranges are not reported, since discordance with absolute values may lead to misinterpretation of CBC data. Current Interpretive Data was last revised on 2017. Imm gran pct 0.4 % [facility]EL Comment: Interpretive Data Percent cell count reference ranges are not reported, since discordance with absolute values may lead to misinterpretation of CBC data. Current Interpretive Data was last revised on 2017. Lymphocyte pct 36.7 % [facility] Comment: Interpretive Data Percent cell count reference ranges are not reported, since discordance with absolute values may lead to misinterpretation of CBC data. Current Interpretive Data was last revised on 2017. Monocyte pct 6.5 % [facility] Comment: Interpretive Data Percent cell count reference ranges are not reported, since discordance with absolute values may lead to misinterpretation of CBC data. Current Interpretive Data was last revised on 2017. Eosinophil pct 3.5 % [facility] Comment: Interpretive Data Percent cell count reference ranges are not reported, since discordance with absolute values may lead to misinterpretation of CBC data. Current Interpretive Data was last revised on 2017. Basophil pct 0.8 % [facility] Comment: Interpretive Data Percent cell count reference ranges are not reported, since discordance with absolute values may lead to misinterpretation of CBC data. Current Interpretive Data was last revised on 2017. Blood 07/15/2024 3:21 PM CDT 07/15/2024 9:27 PM CDT us Woody Bradley MD LAB BLOOD ORDERABLES Chana l Result [facility] [address] [address] Department [place] [address] * (ABNORMAL) CBC with auto differential (07/15/2024 3:21 PM CDT) WBC 9.24 3.80 - 9.90 K/cumm Hgb 15.5 11.9 - 15.5 g/dL [facility] Hct 48.0(H) 35.6 - 45.5 % [facility] Plt 343 150 - 400 K/cumm [facility] MPV 11.1 9.1 - 12.3 fL [facility] RBC 5.61(H) 3.90 - 5.20 M/cumm [facility] MCV 85.6 81.3 - 96.4 fL [facility] MCH 27.6 27.1 - 33.3 pg [facility] MCHC 32.3 32.3 - 35.7 g/dL [facility] RDW CV 16.0(H) 11.1 - 14.9 % [facility] RDW SD 49.7(H) 35.7 - 48.1 fL [facility] NRBC abs 0.00 0.00 - 0.01 K/cumm [facility] Blood 07/15/2024 3:21 PM CDT 07/15/2024 9:27 PM CDT Woody Bradley MD LAB BLOOD ORDERABLES Chana l Result [facility] [address] [address] [facility] [place] [address] * T3, free (07/15/2024 3:21 PM CDT) Free T3 3.7 2.0 - 4.4 pg/mL Blood 07/15/2024 3:21 PM CDT 07/15/2024 9:27 PM CDT Ximena Palacios SENIOR QA TESTER LAB BLOOD ORDERABLES Chana l Result Performing Organization Address [facility]/ZIP Co de Phone Number DANIEL MCARTHUR [address] [address] [facility] [place] [address] * (ABNORMAL) TSH (07/15/2024 3:21 PM CDT) Thyroid Stimulating Hormone 0.01(L) 0.30 - 4.20 mcIUnit/mL Blood 07/15/2024 3:21 PM CDT 07/15/2024 9:27 PM CDT Woody Bradley MD LAB BLOOD ORDERABLES Chana l Result Performing Organization Address [facility]/ZIP Co de Phone Number DANIEL MCARTHUR [address] [address] [facility] [address] [place], [place] [id number] * (ABNORMAL) TSH (07/15/2024 3:21 PM CDT) Thyroid Stimulating Hormone 0.01(L) 0.30 - 4.20 mcIUnit/mL Blood 07/15/2024 3:21 PM CDT 07/15/2024 9:27 PM CDT Ximena Palacios SENIOR QA TESTER LAB BLOOD ORDERABLES Chana l Result Performing Organization Address [facility] Co de Phone Number DANIEL MCARTHUR [address] [facility] [place] [address] * (ABNORMAL) T4, free (07/15/2024 3:21 PM CDT) Free T4 2.27(H) 0.90 - 1.70 ng/dL Blood 07/15/2024 3:21 PM CDT 07/15/2024 9:27 PM CDT Woody Bradley MD LAB BLOOD ORDERABLES Chana l Result Performing Organization Address [facility] [place] [address] [facility] [place] [address] * (ABNORMAL) T4, free (07/15/2024 3:21 PM CDT) Free T4 2.34(H) 0.90 - 1.70 ng/dL Blood 07/15/2024 3:21 PM CDT 07/15/2024 9:27 PM CDT Ximena Palacios SENIOR QA TESTER LAB BLOOD ORDERABLES Chana l Result Performing Organization Address [facility] [place] [address] [facility] [place] [address] * (ABNORMAL) Lipid panel (07/15/2024 3:21 PM CDT) Cholesterol 160 30 - 199 mg/dL Comment: [...] revised on 2017. Triglycerides 122 <=149 mg/dL [facility]EL Comment: Interpretive Data Ages < [...] mg/dL High: >160 mg/dL Calculated using the Acharya LDL-C estimating equation. This equation was implemented on 2023. Prior to this date LDL-C was estimated using the Friedewald equation. Literature References: 1. Expert Panel on Integrated Guidelines for Cardiovascular Health and Risk Reduction in Children and Adolescents. Pediatrics 2011;128:S213 2. NCEP Expert Panel. Circulation 2004;110:227 3. Marck M et al. UYEN Cardiol. 2020 July 24;5(5):540-548. doi: 10.1001/jamacardio.2020.0013 Current Interpretive Data was last revised on 2023. Non-HDL Cholesterol 124 mg/dL [facility] Comment: Interpretive Data Ages [...] last revised on 2017. Chol/HDL ratio 4 [facility] Blood 07/15/2024 3:21 PM CDT 07/15/2024 9:27 PM CDT Woody Bradley MD LAB BLOOD ORDERABLES Chana l Result [facility] [address] Department [place] [address] * Comprehensive metabolic panel (07/15/2024 3:21 PM CDT) [facility] Sodium 139 135 - 145 mmol/L Potassium, pl 4.0 3.3 - 4.9 mmol/L [facility] Chloride 104 97 - 110 mmol/L [facility] CO2 22 22 - 32 mmol/L [facility] Anion gap 13 2 - 15 mmol/L [facility] BUN 12 6 - 25 mg/dL [facility] Creatinine 0.60 0.60 - 1.10 mg/dL [facility] Glucose 89 70 - 199 mg/dL [facility] Comment: Interpretive Data Fasting glucose >/= 126 [...] classification and Diagnosis of Diabetes Diabetes Care 2021; 46: S19-S40. Current interpretive data was last [...] MD LAB BLOOD ORDERABLES Chana l Result DANIEL [address] Department [place] [address] * Screening Mammogram Bilateral W Cyrus (02/29/2024 11:02 AM DISPATCH ASSOCIATE) Anatomical Region Laterality Modality Breast Bilateral Mammography Narrative 03/03/2024 12:13 PM DISPATCH ASSOCIATE Mammogram Technique: Bilateral Digital Breast Tomosynthesis, Bilateral C-view 2D Screening mammogram. Views obtained: bilateral craniocaudal and bilateral mediolateral oblique. Computer Aided Detection was performed. Mammogram Findings: The present examination has been compared to prior imaging studies performed at [facility] on 10/07/2019 and 01/25/2022. There are scattered [...] compared to prior imaging studies performed at [facility] on 10/07/2019 and 01/25/2022. There are scattered areas of fibroglandular density. There are multiple masses in both breasts. There are no significantchanges from the prior study. There is no suspicious abnormality in either breast. Impression: There is no mammographic evidence of malignancy. Annual screening mammography is recommended. OVERALL FINAL ASSESSMENT: BI-RADS CATEGORY 2: Benign. Kimberley Olguin MD IM MAMMO PROCEDURES Final Resul t from Last 3 Months or Most Recently Relevant to Health Maintenance Insurance MEDICARE [facility] Address: [address] [address] [place] [address] [facility] MEDICARE MEDICARE [facility] Advance Directives For more information, please contact: [phone] * Full Code (Latest Code Status on File) Date Activated Date Inactivated Comments 04/16/2024 11:29 AM 04/17/2024 6:34 PM * Full Code Date Activated Date Inactivated Comments 08/02/2022 6:51 PM 08/03/2022 2:32 PM * Full Code Date Activated Date Inactivated Comments 05/02/2022 11:53 AM 05/02/2022 6:21 PM * Full Code Date Activated Date Inactivated Comments 05/02/2022 11:53 AM 05/02/2022 11:53 AM Care Teams Exposure Machine Operator Relationship Specialty Start Date End Date Woody Bradley MD [address] [place] [address] PCP - General Family Medicine 06/05/23 Elias Hair MD [address] [facility] [place] [address] Referring Physician Psychiatry 08/15/22 Kamar Sutton III, MD PhD [address] [place] [address] Radiation Oncologist Radiation Oncology 10/02/23 Deep Naranjo MD PhD [address] [place] [address] Radiation Oncologist Radiation Oncology 10/02/23 [place] [address] [facility] [address] [place] [address] Consulting Physician Endocrinology Diabetes & Metabolism 10/02/23 Kimberley Olguin MD [address] [place] [address] Surgical Oncologist Surgical Oncology 10/02/23
--- NOTE | 2024-08-23 14:35 | ED_ITS ---
HPI - Abdominal Pain General Chief Complaint: Abdominal Pain Stated Complaint: abdominal pain Source: patient Mode of arrival: ambulatory Limitations: no limitations History of Present Illness HPI narrative: This is a 48-year-old female with a history of a gastric sleeve operation presents with abdominal discomfort with no flank pain no dysuria no hematuria mild nausea with no vomiting no chest pain or shortness of breath no fever chills. MD elicited complaint: abdominal pain Onset (ago): day(s) Pain Consistency: intermittent Location: periumbilical Severity: moderate Quality: cramping Migration to: periumbilical Exacerbating factors: nothing Relieving factors: nothing Related Data Home Medications ?Medication ?Instructions ?Recorded ?Confirmed ?Last Taken ?Type lamotrigine 100 mg tablet 100 mg PO DAILY 02/16/20 01/30/23 10/25/22 History prazosin 2 mg capsule 2 mg PO HS 02/16/20 01/30/23 10/25/22 History topiramate 50 mg tablet 50 mg PO DAILY 07/31/21 01/30/23 10/25/22 History topiramate 50 mg tablet 100 mg PO HS 07/31/21 01/30/23 10/25/22 History lorazepam 1 mg tablet 1 mg PO TID PRN Anxiety 10/26/22 01/30/23 10/25/22 History Allergies Allergy/AdvReac Type Severity Reaction Status Date / Time narcotics AdvReac Intermediate Abdominal Uncoded 08/23/24 14:51 Pain Review of Systems 2 Review of Systems: All systems reviewed & are unremarkable except as noted in HPI and below PMFSH Past Medical History Medical History Hypertension Depression with anxiety Thyroid cancer radioactive iodine Colon cancer screening Abnormal WBC count Adrenal Mass Abnormal CT scan, colon Obesity History of TIA (transient ischemic attack) HLD (hyperlipidemia) Affective bipolar disorder Surgical History Surgical History S/P ORIF (open reduction internal fixation) fracture Right knee to ankle Hx of thyroidectomy H/O inguinal hernia repair History of appendectomy H/O: hysterectomy Hx of tonsillectomy Hx of rotator cuff surgery Family History Family History Mother Hypertension Other Unknown family medical history Social History Social History Social History: The patient is and disabled. She is a former smoker. Code status full code Smoking packs per day: 0.5 Smoking cigarettes per day: 10.0 Years smoked: 15 Smoking pack-years: 7.50 Smoking status: Former smoker Tobacco type: cigarettes Second hand tobacco smoke exposure: Yes Additional smoking assessment comments: Quit 2019 Alcohol intake: never Substance use: never Substance use type: does not use Lack of Transportation: No Lack of Food: Never True Current Housing: I Have Housing Concerned About Future Housing: No Difficulty Paying Gas/Electric Bills: No Difficulty Paying for Meds: No Currently Unemployed: No Education: High School Diploma/GED Difficulty w/ Childcare or Family Care: No Living arrangements: with family Additional living arrangements comments: . 3 children. Occupation/Education: other Additional occupation/education comments: On disability. Gender identity (if verbalized by the patient): Female Sexual Orientation (if Verbalized by the Patient): Straight or Heterosexual Spiritual care concerns: No Exam 2 Const: General: healthy appearing and no acute distress Nutritional Appearance: well nourished and obese Orientation/consciousness: patient oriented x3 Limitations: no limitations HENMT: Head: normal to inspection Eyes: Conjunctivae: conjunctivae normal Neck: Neck: normal visual inspection Chest: Chest palpation & inspection: normal inspection of the chest Resp: Effort & Inspection: normal respiratory effort Auscultation: clear to auscultation bilaterally Cardio: Rate: regular rate Rhythm: regular rhythm GI: GI Palp: Yes Soft to palpation Auscultation: normal bowel sounds : General: Yes bladder normal to palpation Urinary Catheter: Urinary Catheter: patent and draining and urine clear Back/Spine/Pelvis: Back: no CVA tenderness Skin: General skin exam: normal color Neuro: General: patient oriented x3 and moves all extremities Extrem: General: normal to inspection, no clubbing, cyanosis or edema and no pedal edema Psych: Mental Status: mental status grossly normal Course Course Emergency Course: CT scan shows no acute intra-abdominal abnormalities, patient received IV fluids and morphine and Zofran for pain patient's symptoms have improved labs performed and reviewed with no acute abnormalities vitals are stable advised patient to follow with primary. Vital Signs Vital signs: Vital Signs Temperature 36.7 C 08/23/24 14:19 Pulse Rate 78 08/23/24 14:19 Respiratory Rate 18 08/23/24 14:19 Blood Pressure 130/82 08/23/24 14:19 Pulse Oximetry 98 08/23/24 14:19 Oxygen Delivery Room Air 08/23/24 14:19 Temperature 36.7 C 08/23/24 14:19 Pulse Rate 78 08/23/24 14:19 Respiratory Rate 18 08/23/24 14:19 Blood Pressure 130/82 08/23/24 14:19 Pulse Oximetry 98 08/23/24 14:19 Oxygen Delivery Room Air 08/23/24 14:19 MDM - Abdominal Pain Lab Data 08/23/24 14:57 08/23/24 14:57 Labs: Lab Results 08/23/24 Range/Units 14:57 WBC 9.5 (4.8-10.8) K/mm3 RBC 5.40 (4.20-5.40) M/mm3 Hgb 14.8 (12.0-15.0) g/dL Hct 45.4 (35.0-49.0) % MCV 84.1 (78.0-102.0) fL MCH 27.4 (27.0-31.0) pg MCHC 32.6 (32-36) g/dL RDW 14.4 (11.6-14.4) % Plt Count 329 (150-420) K/mm3 MPV 10.5 (9.2-11.8) fl Immature Gran % (Auto) 0.1 H (0.0-0.0) % Neut % (Auto) 55.8 (50.0-70.0) % Lymph % (Auto) 35.0 (18.0-42.0) % [place] % (Auto) 5.5 (2.0-11.0) % Eos % (Auto) 3.0 (1.0-6.0) % Baso % (Auto) 0.6 (0.0-1.0) % Lymph # (Auto) 3.31 (1.10-4.50) K/mm3 [place] # (Auto) 0.52 (0.10-0.90) K/mm3 Eos # (Auto) 0.28 (0.02-0.50) K/mm3 Baso # (Auto) 0.06 (0.00-0.10) K/mm3 Abs Immat Gran (auto) 0.01 H (0.00-0.00) K/mm3 Absolute Neuts (auto) 5.28 (1.70-7.20) K/mm3 Absolute Nucleated RBC 0.00 (0.00-0.00) K/mm3 Nucleated RBC % 0.0 (0-0.0) % PT 10.9 (9.50-12.1) Seconds INR 1.0 APTT 28.8 (23.9-30.70) Sec Sodium 140 (137-145) mmol/L Potassium 3.9 (3.4-5.0) mmol/L Chloride 112 H (98-107) mmol/L Carbon Dioxide 22 (22-30) mmol/L Anion Gap 6 (4-12) mmol/L BUN 14 D (7-17) mg/dL Creatinine 0.78 (0.7-1.0) mg/dL Estim Creat Clear Calc 85 ml/min Estimated GFR > 60 (59 - ) Glucose 87 (65-110) mg/dL Calculated Osmolality 289 (285-295) mOsm/kg Lactic Acid 0.7 (0.4-2.0) mmol/L Calcium 9.1 (8.4-10.2) mg/dL Total Bilirubin 0.8 (0.2-1.3) mg/dL AST 20 (14-36) U/L ALT 19 (6-35) U/L Alkaline Phosphatase 64 (38-126) U/L Troponin I < 0.012 (0.000-0.034) ng/mL Total Protein 7.4 (6.3-8.2) g/dL Albumin 4.3 (3.5-5.1) g/dL Lipase 210 (23-300) U/L Urine Color Light yellow (Yellow) Urine Appearance Clear (Clear) Urine pH 5.5 (5.0-8.0) Ur Specific [place] <= 1.005 L (1.010-1.020) Urine Protein Negative (Negative) Urine Glucose (UA) Negative (Negative) Urine Ketones Negative (Negative) Ur Blood (Man) Negative (Negative) Urine Nitrate Negative (Negative) Urine Bilirubin Negative (Negative) Urine Urobilinogen 0.2 (0.2-1.0) mg/dL Leukocyte Esterase Rfl Negative (Negative) ANGELA/UL Urine Test Negative Influenza A (RT-PCR) Negative (Negative) Influenza B (RT-PCR) Negative (Negative) RSV (RT-PCR) Negative (Negative) SARS-CoV-2 RNA (RT-PCR) Negative (Negative) Imaging Data Radiologist's impression: ITS Impressions Abdomen/Pelvis CT 08/23/24 16:49 IMPRESSION: 1. No evidence of appendicitis, diverticulitis or intestinal obstruction. 2. Stone in the right kidney mid pole. 3. Sclerotic changes in the right pubic bone. Follow-up advised. 4. Right adrenal adenoma unchanged. 5. Hepatomegaly. Critical Care Time Critical Care Time Critical Care Time: No Discharge Plan Discharge Clinical Impression: Gastroenteritis Patient Disposition: Home Condition: Stable Instructions: Antibiotic Form, Gastroenteritis (ED) Additional Instructions: advised patient to take medication as prescribed and to follow with primary within next 3 to 5 days for further evaluation treatment. Patient Language: Mauritanian Prescriptions: New ondansetron 4 mg tablet,disintegrating 4 mg PO Q6H PRN (Reason: nausea and vomiting) Qty: 14 0RF tramadol 50 mg tablet 50 mg PO Q6H PRN (Reason: pain) Qty: 20 0RF No Action lamotrigine 100 mg tablet 100 mg PO DAILY prazosin 2 mg capsule 2 mg PO HS topiramate 50 mg tablet 50 mg PO DAILY topiramate 50 mg tablet 100 mg PO HS lorazepam 1 mg tablet 1 mg PO TID PRN (Reason: Anxiety) levothyroxine [Synthroid] 150 mcg Tablet 150 mcg PO DAILY@0630 Qty: 30 0RF atorvastatin 40 mg tablet See Rx Instructions .ROUTE .COMPLEX Qty: 90 3RF Dose Instruction: TAKE 1 TABLET BY MOUTH EVERY DAY Rx Instructions: TAKE 1 TABLET BY MOUTH EVERY DAY Follow-up/Referrals: Harms,Woody Alfaro M.D. [Primary Care Provider] - Time of Disposition: 17:14
--- NOTE | 2024-08-23 14:35 | ECG_ITS ---
Test Date: 2024-08-23 14:51:25 Measurements Intervals [place] Rate: 79 P: 29 RI: 177 QRS: 14 QRSD: 92 T: 29 QT: 389 QTc: 447 Interpretive Statements SINUS RHYTHM POSSIBLE LEFT ATRIAL ENLARGEMENT DELAYED PRECORDIAL R/S TRANSITION CONSIDER INFERIOR INFARCT, AGE INDETERMINATE ABNORMAL ECG No previous ECG available for comparison Electronically Signed On 08-24-2024 07:02:13 CDT by Victor Manuel Asher D.O.
[2024-08-23] MEDS: SODIUM CHLORIDE 0.9% IV 1,000 ML 999 ML IV CONT (15:00)
[2024-08-23] MEDS: ONDANSETRON INJ 4 MG/2 ML VIAL IV PUSH (15:00)
[2024-08-23] MEDS: MORPHINE SULFATE (*CRX) 4 MG/ML INJ IV PUSH (15:00)
[2024-08-23 15:02] LABS: Basophils Absolute Auto 0.06 K/mm3 (0.00-0.10); Basophils Percent Auto 0.6 % (0.0-1.0); Eosinophils Absolute Auto 0.28 K/mm3 (0.02-0.50); Hematocrit 45.4 % (35.0-49.0); Hemoglobin 14.8 g/dL (12.0-15.0); Immature Granulocyte Absolute 0.01 K/mm3 (0.00-0.00); Immature Granulocyte Percent A 0.1 % (0.0-0.0); Lymphocytes Absolute Auto 3.31 K/mm3 (1.10-4.50); Mean Corpuscular HGB Conc 32.6 g/dL (32-36); Mean Corpuscular Hemoglobin 27.4 pg (27.0-31.0); Mean Corpuscular Volume 84.1 fL (78.0-102.0); Mean Platelet Volume 10.5 fl (9.2-11.8); Monocytes Absolute Auto 0.52 K/mm3 (0.10-0.90); Monocytes Percent Auto 5.5 % (2.0-11.0); Neutrophils Absolute Auto 5.28 K/mm3 (1.70-7.20); Neutrophils Percent Auto 55.8 % (50.0-70.0); Platelet Count Result 329 K/mm3 (150-420); Red Cell Distribution Width 14.4 % (11.6-14.4); White Blood Count 9.5 K/mm3 (4.8-10.8)
[2024-08-23 15:09] LABS: Add Urine Microscopic? NO; Appearance Urine Clear (Clear); Bilirubin Urine Negative (Negative); Blood Urine Negative (Negative); Color Urine Light Yellow (Yellow); Glucose Urine UA Negative (Negative); Ketones Urine Negative (Negative); Leukocyte Esterase Ur Negative LEU/UL (Negative); Nitrate Urine Negative (Negative); Protein Urine Negative (Negative); Specific Grav Ur <= 1.005 (1.010-1.020); Urobilinogen Urine 0.2 mg/dL (0.2-1.0); pH Urine 5.5 (5.0-8.0)
[2024-08-23 15:10] LABS: Pregnancy On Board Control Positive; Urine Pregnancy Test Negative
[2024-08-23 15:13] LABS: Alanine Aminotransferase 19 U/L (6-35); Albumin Level 4.3 g/dL (3.5-5.1); Alkaline Phosphatase 64 U/L (38-126); Anion Gap 6 mmol/L (4-12); Aspartate Amino Transferase 20 U/L (14-36); Bilirubin,Total 0.8 mg/dL (0.2-1.3); Blood Urea Nitrogen 14 mg/dL (7-17); Calcium 9.1 mg/dL (8.4-10.2); Carbon Dioxide 22 mmol/L (22-30); Chloride 112 mmol/L (98-107); Estimated CRCL calculation 85 ml/min; Estimated Glomerular Filt Rate > 60; Glucose 87 mg/dL (65-110); Lipase 210 U/L (23-300); Osmolality Calculated 289 mOsm/kg (285-295); Potassium 3.9 mmol/L (3.4-5.0); Sodium 140 mmol/L (137-145); Total Protein 7.4 g/dL (6.3-8.2)
[2024-08-23 15:14] LABS: Lactic Acid Reflex 0.7 mmol/L (0.4-2.0)
[2024-08-23 15:15] LABS: Partial Thromboplastin Time 28.8 Sec (23.9-30.70); Prothrombin Time 10.9 Seconds (9.50-12.1)
[2024-08-23 15:25] LABS: Troponin I < 0.012 ng/mL (0.000-0.034)
[2024-08-23 15:40] LABS: Influenza A QL RT-PCR Negative (Negative); Influenza B QL RT-PCR Negative (Negative); RSV RNA, RT-PCR Negative (Negative); SARS-CoV-2 RNA PCR Negative (Negative)
[2024-08-23 17:21] VITALS: BP 123/87; PULSE 63; RESP 20; O2SAT 97
--- NOTE | 2024-08-26 12:31 | PC.NURSE ---
preliminary blood cultures x2 reviewed. no growth to date
--- NOTE | 2024-08-31 14:18 | PC.NURSE ---
FINAL BLOOD CULTURE REPORT; NO GROWTH AFTER 5 DAYS
== END 2024-08-23 17:21 | disposition home or self-care (01) ==
PROVIDERS: Emergency Provider Emergency Medicine; PCP Family Medicine
DX: K52.9 Noninfective gastroenteritis and colitis, unspecified (principal); I10 Essential (primary) hypertension; E78.5 Hyperlipidemia, unspecified; Z86.73 Personal history of transient ischemic attack (TIA), and cerebral infarction without residual deficits; Z85.850 Personal history of malignant neoplasm of thyroid; Z87.891 Personal history of nicotine dependence; Z20.822 Contact with and (suspected) exposure to COVID-19
CPT/HCPCS: 36415; 74177; 80053; 81003; 81025; 83605; 83690; 84484; 85025; 85610; 85730; 87040; 87637; 93005; 96361; 96374; 96375; 99284; J2270; J2405; J7030; Q9967

== ENCOUNTER 2025-02-14 13:45 | Emergency (ER) | payer MEDICARE, SELFPAY ==
--- OUTSIDE RECORDS SUMMARY | 2019-10-06 23:00 | XMS_ITS | Encounter Summary ---
Author Organization [facility] Healthcare Address [address] [place] [address] Care Team Providers Care Php Mysql Web Developer Name Role Phone Unavailable Primary Care Provider Unavailabl e Reason for Visit * Diagnostic Imaging (Routine) - Pending Review Specialty Diagnoses / Procedures Referred By Kiera alex Referred To Contact Procedures Breast Imaging Screening Outside Reference Transcribed Order, Provider Referral ID Status Reason Start Date Expiration Date V isits Requested Visits Authorized [id number] Pending Review 02/15/2024 03/16/2025 1 1 Encounter Details Date Type Department Care Team (Late st Contact Info) Description 10/07/2019 Hospital Encounter [facility] [address] [place] [id number] Social History Tobacco Use Types Packs/Day Years Used Date Smoking Tobacco: Former Cigarettes Q uit: 2020 Passive Smoke Exposure: Never Smokeless Tobacco: Never AUDIT-C Answer Date Recorded Q1: How often do you have a drink containing alcohol? Never 04/09/2024 Q2: How many drinks containi ng alcohol do you have on a typical day when you are drinking? Patient does not drink Q3: How often do you have si x or more drinks on one occasion? Never 04/09/2024 PHQ-2 Answer Date Recorded PHQ-2 Total Score (If total score is 3 or more points, staff should administer the PHQ-9) 0 07/15/2024 Personal Safety Answer Date Recorded Have you ever been in or are you currently in a harmful physical or emotional relationship or is someone making you feel afraid or unsafe? Denies 04/16/2024 Comments No Sex and Gender Information Value Date Recorded Sex Assigned at Not on file Legal Sex Female 9:12 AM CDT Gender Identity Not on file Sexual Orientation Not on file documented as of this encounter Functional Status * In the past year, patient experienced: Question Answer Date of Assessment Author One or more falls in the las t year 0 07/15/2024 2:34 PM CDT Delia Morales MA Has trouble stepping up onto a curb 0 09/29/2022 12:55 PM LUIS CARLOST Rajinder Diane RN Advised to use a cane or walker to get around safely 0 09/29/2022 12:55 PM LUIS CARLOST Romero Diane RN Often has to thompson to the toilet 0 09/29/2022 12:55 PM Rajinder Downey RN Feels unsteady when walking 0 09/29/2022 12 :55 PM Rajinder Downey RN Has lost some feeling in feet 0 09/29/2022 12:55 PM Rajinder Downey RN Steadies self on furniture while walking at home 0 09/29/2022 12:55 PM Rajinder Downey RN Takes medicine that makes him/her feel lightheaded or more tired than usual 0 09/29/2022 12:55 PM Rajinder Downey RN Worried about falling 0 09/29/2022 12:55 PM Rajinder Downey RN Takes medicine to sleep or improve mood 0 09/29/2022 12:55 PM Rajinder Downey RN Needs to push with hands whe n rising from a chair 0 09/29/2022 12:55 PM Rajinder Downey RN Often feels sad or depressed 0 09/29/2022 1 2:55 PM Rajinder Downey RN * Difference in Last Two Shabbir Scores Answer Date of Assessment Author 0 04/17/2024 7:30 AM Sydnee Sanchez RN * Doan Fall Risk Question Answer Date of Assessment Author History of Falling 0 04/17/2024 7:30 AM Patti Sanchez, RN Secondary Diagnosis 0 04/17/2024 7:30 AM Patti Strange, data specialist Aids 0 04/17/2024 7:30 AM CUT AND COVER LINE WORKER Patti Jimenez mm, DERICK Intravenous Therapy/Heparin/Saline Lock 20 04/17/2024 7:30 AM CUT AND COVER LINE WORKER Sydnee Govea, RN Gait/Transferring 10 04/17/2024 7:30 AM CUT AND COVER LINE WORKER Patti Govea, RN Mental Status 0 04/17/2024 7:30 AM CUT AND COVER LINE WORKER Patti Govea, RN Doan Fall Risk Score (Score >= 45 places fall precaution order) 30 04/17/2024 7:30 AM Patti Sanchez, DERICK Prior Fall Event (Autopopulated from EMR) None found 04/17/2024 7:30 AM Bret Sanchez, RN * Shabbir Scale Question Answer Date of Assessment Author Sensory Perceptions 4 04/17/2024 7:30 AM Patti Strange, RN Moisture 4 04/17/2024 7:30 AM Patti Sanchez, RN Activity 3 04/17/2024 7:30 AM Patti Sanchez, RN Mobility 3 04/17/2024 7:30 AM Patti Sanchez, RN Nutrition 3 04/17/2024 7:30 AM Patti Sanchez, RN Friction and Shear 3 04/17/2024 7:30 AM Patti Sanchez, RN Shabbir Scale Score 20 04/17/2024 7:30 AM Patti Sanchez, RN * BP Location Answer Date of Assessment Author Left arm 01/19/2025 11:05 AM Sol Haque MA * Question Answer Date of Assessment Author BP Method Automatic 04/17/2024 11:00 AM CUT AND COVER LINE WORKER Ara Kevin MAP (mmHg) 97 04/16/2024 11:36 PM CUT AND COVER LINE WORKER Dimitry Davila * Fall Risk Interventions Question Answer Date of Assessment Author All Low Fall Interventions Applied Yes 04/17/2024 7:30 AM Patti Sanchez, DERICK All Moderate Fall Interventions Applied Yes 04/17/2024 7:30 AM Patti Sanchez RN All Moderate Fall Risk Interventions EXCEPT: Comfort rounds 08/03/2022 7:50 AM Dior Oliva, DERICK All High Fall Risk Interventions Applied No 04/17/2024 7:30 AM Patti Sanchez RN Additional Interventions Applied Over-bed table on non-exit side;Exit bed on strong/preferred side 08/03/2022 7:50 AM Dior Oliva, DERICK * B.M.A.T. - Bedside Mobility Assessment Tool for Nurses Question Answer Date of Assessment Author Is patient able to participate in the BMAT? Yes 04/17/2024 7:30 AM Bret Sanchez RN BMAT Level Level 3 - Yellow 04/17/2024 7:30 AM Patti Chilel, DERICK * Question Answer Date of Assessment Author 1. Has the patient self-repo rted, presented with clinical signs of, or have a documented history of any of the following within the past 30 days? No 04/17/2024 7:30 AM Patti Sanchez, DERICK * Question Answer Date of Assessment Author Is the patient being treated today because it is known or suspected that they prepared, started, or tried to end their life? No 04/16/2024 2:29 PM Bret Sanchez, DERICK * Question Answer Date of Assessment Author 1. In the past month, have y ou wished you were or that you could go to sleep and not wake up? No 04/16/2024 2:29 PM Patti Allen mm, RN 2. In the past month, have y ou actually had any thoughts of killing yourself? No 04/16/2024 2:29 PM Patti Sanchez, RN 6. Have you ever done anythi ng, started to do anything, or prepared to do anything to end your life? No 04/16/2024 2:29 PM Patti Sanchez, RN * Suicide Risk Level Answer Date of Assessment Author No risk level 04/16/2024 2:29 PM Sydnee Sanchez RN * Self-Injurious Risk Level Answer Date of Assessment Author No risk level 04/17/2024 7:30 AM Sydnee Sanchez RN * Alcohol Withdrawal BP Hierarchy Answer Date of Assessment Author 100 09/29/2022 12:19 PM CDT Meri Retana RMA * Pressure Injury Prevention Question Answer Date of Assessment Author Pressure Ulcer Prevention Interventions Keep skin clean and dry (Sensory Perception/Moisture) ;Provide adequate nutrition/fluid intake (Nutrition) 04/17/2024 7:30 AM Patti Sanchez RN 2 Nurse Skin Assessment Patti SEPULVEDA, Devin regalado RN 04/16/2024 11:20 AM Patti Sanchez RN * Transdermal Patch Assessment on Admission Answer Date of Assessment Author Not Present 04/16/2024 2:27 PM Sydnee Sanchez RN * AUDIT-C Score Answer Date of Assessment Author 0 04/09/2024 11:09 AM Dannielle Sidhu RN * Alcohol Use Question Answer Date of Assessment Author Q1: How often do you have a drink containing alcohol? Never 04/09/2024 11:09 AM Dannielle Sidhu RN Q2: How many drinks containing alcohol do you have on a typical day when you are drinking? Patient does not drink 04/09/2024 11:09 AM Dannielle Sidhu RN Q3: How often do you have six or more drinks on one occasion? Never 04/09/2024 11:09 AM Dannielle Sidhu RN * Integumentary Question Answer Date of Assessment Author Skin Color Appropriate for ethnicity 04/17/2024 7:30 AM Patti Sanchez RN Skin Condition/Temp Warm;Dry 04/17/2024 7 :30 AM Patti Sanchez RN Skin Integrity Surgical incision 04/17/2024 7:3 0 AM Patti Sanchez RN Skin Turgor Non-tenting 04/17/2024 7:30 AM Patti Sanchez RN Integumentary Additional Assessments Yes-Shabbir 04/17/2024 7:30 AM Patti Sanchez RN Integumentary (WDL) X 04/17/2024 7 :30 AM Patti Sanchez RN Skin Location abdomen 04/17/2024 7:30 AM Patti Sanchez RN * Wound (LDAs) Question Answer Date of Assessment Author Type of Wound (LDA) Surgical site 08/03/2022 7:40 AM Dior Fair RN * Shabbir Scale Question Answer Date of Assessment Author Shabbir Scale Used Shabbir 08/02/2022 5:31 PM CDT Latisha Rhodes RN * Question Answer Date of Assessment Author Percent Meal Eaten (%) 0 04/17/2024 8:35 AM Ara Richardson * BP Location Answer Date of Assessment Author Left arm 01/19/2025 11:05 AM CDT Sol Langston MA * Question Answer Date of Assessment Author BP Method Automatic 04/17/2024 11:00 AM Ara Richardson * Fall Risk Interventions Question Answer Date of Assessment Author All Low Fall Interventions Applied Yes 04/17/2024 7:30 AM Patti Sanchez RN All Moderate Fall Interventions Applied Yes 04/17/2024 7:30 AM Patti Sanchez RN All Moderate Fall Risk Interventions EXCEPT: Comfort rounds 08/03/2022 7:50 AM Dior Oliva RN All High Fall Risk Interventions Applied No 04/17/2024 7:30 AM Patti Sanchez RN Additional Interventions Applied Over-bed table on non-exit side;Exit bed on strong/preferred side 08/03/2022 7:50 AM Dior Oliva RN * Question Answer Date of Assessment Author Reason not bathed/showered with chlorhexidine gluconate (CHG) Patient refused bath/shower with chlorhexidine gluconate (CHG) 08/02/2022 7:00 PM Dior Oliva RN Linens Partial linen change (Comment) 08/03/2022 7:50 AM Dior Oliva, DERICK * ADL Screening Question Answer Date of Assessment Author Patient's Vision Adequate to Safely Complete Daily Activities Yes 04/16/2024 2:26 PM CUT AND COVER LINE WORKER Patti Govea, RN Patient's Judgement Adequate to Safely Complete Daily Activities Yes 04/16/2024 2:26 PM CUT AND COVER LINE WORKER Patti Govea, RN Patient's Memory Adequate to Safely Complete Daily Activities Yes 04/16/2024 2:26 PM Patti Sanchez, RN Patient Able to Express Needs/Desires Yes 04/16/2024 2:26 PM Patti Sanchez, RN Dressing Independent 04/16/2024 2:26 PM Patti Sanchez, RN Grooming Independent 04/16/2024 2:26 PM Patti Sanchez, RN Feeding Independent 04/16/2024 2:26 PM Patti Sanchez, RN Bathing Independent 04/16/2024 2:26 PM Patti Sanchez, RN Toileting Independent 04/16/2024 2:26 PM Patti Sanchez, RN In/Out Bed Independent 04/16/2024 2:26 PM Patti Sanchez, RN Walks in Home Independent 04/16/2024 2:26 PM Patti Sanchez, RN Weakness of Legs None 04/16/2024 2:26 PM CUT AND COVER LINE WORKER Patti Vargas, RN Weakness of Arms/Hands None 04/16/2024 2:26 PM Patti Sanchez, RN Hearing - Right Ear Functional 04/16/2024 2:26 PM CS T Patti Govea, RN Hearing - Left Ear Functional 04/16/2024 2:26 PM CUT AND COVER LINE WORKER Patti Govea, RN Dominant hand? Left 04/16/2024 2:26 PM CUT AND COVER LINE WORKER Patti Sandoval, RN Decline in ADLs in last 2 weeks? No 04/16/2024 2:26 PM Patti Sanchez, RN * Therapy Consults Question Answer Date of Assessment Author PT Evaluation Needed 2 04/16/2024 2:26 PM Patti De La Cruz RN OT Evaluation Needed 2 04/16/2024 2:26 PM Patti De La Cruz RN RING BARKER OPERATOR Evaluation Needed 2 04/16/2024 2:26 PM Patti Sanchez RN * Assistive Devices Question Answer Date of Assessment Author Assistive Devices/DME Dentures upper 04/16/2024 2:26 P M Patti Sanchez RN * Nutrition Question Answer Date of Assessment Author Feeding Level of Assistance Able to feed self 08/03/2022 7:50 AM Dior Oliva RN Appetite Good 08/03/2022 7:50 AM Dior Armstrong ed, RN Percent Snack Eaten (%) 50 08/03/2022 7:50 A M Dior Oliva RN * Speech/Swallow Screening Question Answer Date of Assessment Author Currently, does patient have difficulty swallowing; coughing/choking while swallowing, or feels like food is sticking No 04/16/2024 2:26 PM Patti Sanchez RN In the past two weeks has the patient had changes in speaking or ability to comprehend conversation No 04/16/2024 2:26 PM Patti Sanchez RN Currently, does patient require thickened liquids or dysphagia diet No 04/16/2024 2:26 PM Patti Sanchez RN Patient is in need of RING BARKER OPERATOR Order: No RING BARKER OPERATOR order needed from this assessment 04/16/2024 2:26 PM Patti Sanchez RN * Hygiene Question Answer Date of Assessment Author Hygiene Level of Assistance Minimal assist 04/16/2024 7:30 PM Malinda Forrester RN Bath Not bathed/showered 04/17/2024 7:30 AM Patti Strange RN documented as of this encounter Mental Status * Question Answer Entry Date Author Level of Consciousness Alert;Awake 7:30 PM Malinda Forrester RN Orientation Oriented X4 (person, place, time, situation) 04/16/2024 7:30 PM Malinda Forrester RN * Question Answer Entry Date Author Neuro ([facility] 04/17/2024 7:30 AM Patti Sanchez RN Neuro ([facility]) [facility] 08/03/2022 7:40 AM CDT Dior Gallo ed, RN Other Neuro Symptoms Fatigue 04/16/2024 11:20 AM Patti Sanchez RN * Short Blessed Test Question Answer Entry Date Author What year is it now? 0 08/03/2022 8:42 AM CDT Amanda Hooper OT What month is it now? 0 08/03/2022 8:42 AM CDT Amanda Hooper OT Without looking at the clock, tell me what time it is 0 08/03/2022 8:42 AM CDT Amanda Hooper OT Count aloud backwards from 20-1 0 08/03/2022 8:42 AM CDT Amanda Hooper OT Say the months of the year backwards in reverse order 0 08/03/2022 8:42 AM CDT Amanda Hooper OT Repeat the name and address I asked you to remember 2 08/03/2022 8:42 AM CDT Amanda Hooper OT Repeat this name and address after me J Carlos Olguin [address] [place] [address] 08/03/2022 8:42 AM CDT Amanda Hooper OT Short Blessed Total Score 2 08/03/2022 8:42 AM CDT Amanda Hooper OT Short Blessed Comments [facility] 8:42 AM CDT Amanda Hooper OT documented in this encounter Plan of Treatment Not on file documented as of this encounter Procedures Procedure Name Priority Date/Time Associated Diagnosis Comments BREAST IMAGING MG SCREENING OUTSIDE REFERENCE Routine 10/07/2019 12:00 AM CDT documented in this encounter Results * Breast Imaging Screening Outside Reference (10/07/2019 12:00 AM CDT) Impressions [facility] - 02/15/2024 9:13 AM CUT AND COVER LINE WORKER These images are for Reference purposes only and have not been reviewed by [facility] Radiology. There will be no report generated by a [facility] Radiologist. Narrative [facility] - 02/15/2024 9:13 AM CUT AND COVER LINE WORKER EXAMINATION: Images For Reference Purposes Only us Provider Transcribed Order IMG MAMMO PROCEDURES Final Result [facility] documented in this encounter Visit Diagnoses Not on filedocumented in this encounter
--- NOTE | ~2025-02-14 | XR_ITS ---
EXAMINATION: XR sacrum coccyx min 2V, 02/14/2025 14:05 CORPORATE PARALEGAL HISTORY: pain with trauma COMPARISON: No comparisons available. Findings: No acute fracture or malalignment. No significant degenerative changes. Soft tissues unremarkable. Impression: No acute fracture or malalignment. Reviewed, dictated and finalized at location P. ORATE PARALEGAL Impression: No acute fracture or malalignment.
--- OUTSIDE RECORDS SUMMARY | 2025-02-14 13:51 | XMS_ITS | Encounter Summary ---
Author Organization [facility] Address [address] [place] [address] Care Team Providers Care Ladle Patcher Name Role Phone Lyndon Solomon MD Primary Care Provider [phone] Kody Dent DO Primary Care Provider [phone] Bambi Garnett MD Primary Care Provider Encounter Details Date Type Department Care Team (Late st Contact Info) Description 06/09/2017 Abstract [facility] CONVERSION [address] [place] [address] , Generic Conversion, Social History Tobacco Use Types Packs/Day Years Used Date Smoking Tobacco: Never Assessed Comments Unknown Sex and Gender Information Value Date Recorded Sex Assigned at Not on file Legal Sex Female 8:31 PM CDT Gender Identity Not on file Sexual Orientation Not on file documented as of this encounter Plan of Treatment Not on file documented as of this encounter Visit Diagnoses Not on filedocumented in this encounter Additional Health Concerns Infection Onset Date Last Indicated Resolved Time COVID-19 Rule Out 08/25/2019 08/25/2019 08/26/2019 4:24 AM CDT documented as of this encounter Care Teams Ladle Patcher Relationship Specialty Start Date End Date Lyndon Solomon MD [facility] [place] [id number] PCP - General FAMILY PRACTICE 03/26/17 07/02/19 Kody Dent DO [address] [place] [address] PCP - General FAMILY PRACTICE 07/03/19 12/11/22 Bmabi Garnett MD [address] [place] [address] PCP - General 12/12/22 documented as of this encounter
--- OUTSIDE RECORDS SUMMARY | 2025-02-14 13:51 | XMS_ITS ---
Author Organization [facility] Address [address] [place] [address] Care Team Providers Care Button Pusher Name Role Phone Elias Hair MD Unavailable [phone] Woody Bradley MD Primary Care Provider [phone] Herman MILNER MD PhD, Kamar Whitman Unavailable Deep Naranjo MD PhD Unavailable Noemy Parker MD Unavailable Kimberley Olguin MD Unavailable Ximena Palacios NP Unavailable Active Problems Problem Noted Date Diagnosed Date BMI 36.0-36.9,adult 07/15/2024 Assessment & Plan (11/20/2024 9:45 AM CDT): The patient continues to do extremely well. Her main issue right now is just the excess skin. She is going to see how the next 6 months goes before entertaining any kind of surgical intervention to correct this. Continue small frequent meals. Exercise as tolerated. Continue to attend the monthly support groups if beneficial. We will see her back in 6 months. Continue calcium, multivitamin and vitamin-D Assessment & Plan (07/15/2024 3:12 PM CDT): [...] Stable on famotidine and iwll follow repsonse. Adrenal adenoma 07/15/2024 Assessment & Plan (07/15/2024 3:13 PM CDT): Asypmtomatic, no change in function. Post-traumatic osteoarthritis, other specified s ite 03/07/2024 Ventral hernia without obstruction or gangrene 1 04/13/2023 Assessment & Plan (02/28/2024 2:13 PM DISTRICT RANGER): We have had talked with the patient [...] obesity. Assessment & Plan (02/12/2024 10:48 AM DISTRICT RANGER): Reviwed CT scan. Reviewed ER warning s/s. Mahamed rrepsonse. Referral to Gen surgery for consutlation and evaluationl Dyspepsia 02/12/2024 Assessment & Plan (02/12/2024 10:48 AM DISTRICT RANGER): WIll refer to GI as patient having [...] changes Assessment & Plan (02/12/2024 10:47 AM DISTRICT RANGER): Enocurage healthy food choices. Reivweed aerobic exericse [...] Luna MD on 09/28/2022 Assessment & Plan (01/19/2025 11:03 AM CDT): Under surveillance. Follicular thyroid cancer dx'd 07/11/22. Total thyroidectomy/parathyroidectomy 08/02/22 with subsequent TORRES 09/29/22. 10/02/23 whole body scan shows resolution of uptake in previous scan. 02/29/24 US thyroid no evidence of tumor recurrence. 10/17/24 Thyroid cancer Whole body imaging: no functioning thyroid tissue. Continues to follow with Rad/onc; has appt 03/06/25. Will continue with goal of suppressed TSH with normal free T4. Will continue to monitor thyroglobulin, was drawn 09/2024. Verified that she uses [employer]. Aware to check results/results letter in [employer]. Will contact by phone if needed. Assessment & Plan (09/03/2024 10:33 AM CDT): Follicular thyroid cancer dx'd 07/11/22. Total thyroidectomy/parathyroidectom 08/02/22 with subsequent TORRES 09/29/22. 10/02/23 whole body scan shows resolution of uptake in previous scan. 02/29/24 US thyroid no evidence of tumor recurrence. Continues to follow with Rad/onc; has appt 03/06/25. Will continue with goal of suppressed TSH with normal free T4. Will continue to monitor thyroglobulin, to be drawn today. Verified that she uses [employer]. Aware to check results/results letter in [employer]. Will contact by phone if needed. Assessment & Plan (07/15/2024 3:11 PM CDT): Continues surveillance and observation with endocrine and oncology. WIll monitor response. Assessment & Plan (02/27/2024 3:26 PM DISTRICT RANGER): Follicular thyroid cancer dx'd 07/11/22. Total thyroidectomy/parathyroidectom 08/02/22 with subsequent TORRES 09/29/22. 10/02/23 whole body scan shows resolution of uptake in previous scan. Continues to follow with Rad/onc; has appt 02/29/24. Will continue with goal of suppressed TSH with normal free T4. Will continue to monitor thyroglobulin. (Not drawn today as was just completed 10/01/23). Assessment & Plan (02/12/2024 10:47 AM DISTRICT RANGER): COntinue f/u with Dr. Parker, continues on [...] 08/15/2022 Postsurgical hypothyroidism 08/15/2022 Assessment & Plan (01/19/2025 11:04 AM CDT): Chronic problem. Currently taking 125 mcg Sunday-Sunday 1/2 tab on Sunday (since 11/19/24). She's had gastric bypass & requiring less levothyroxine. Aware to take 1st thing in morning, 30-60 minutes before food/drink/other medications. Will update labs today. Verified that she uses my[employer]. Aware to check results/results letter in [employer]. Will contact by phone if needed. Assessment & Plan (09/03/2024 10:35 AM CDT): Chronic problem. Last TFTs completed 06/2024 too suppress on levothyroxine 200mcg Sunday-Sunday, 1/2 tab on Sunday. Was decreased to levothyroxine 200mg Sunday-Sunday, 1/2 tab on Saturdays, none on Sundays (since 07/16/24). Today states that she has been taking levothyroxine 200mcg Sunday-Sunday and feels better. Discussed sending in new lower dose tab on next refill. She's had gastric bypass & requiring less levothyroxine. Aware to take 1st thing in morning, 30-60 minutes before food/drink/other medications. Will update labs today. Verified that she uses mychart. Aware to check results/results letter in [employer]. Will contact by phone if needed. Assessment & Plan (02/27/2024 4:01 PM DISTRICT RANGER): Chronic problem. Last TFTs completed 06/2023 by [...] in 2 months. Verified that she uses [employer]. Aware to check results/results letter in [employer]. Will contact by phone if needed. Assessment [...] (04/20/2022): Added automatically from request for surgery [id number] Adrenal incidentaloma 03/23/2022 Assessment & Plan (12/02/2022 2:17 PM CDT): Repeat CT in 6 months Assessment & Plan (03/23/2022 3:30 PM DISTRICT RANGER): Patient with history of left adrenal mass [...] 11/08/2021 Assessment & Plan (04/04/2022 9:52 AM DISTRICT RANGER): Patient is set to see psych at the end of the month. That does last thing we are waiting for prior to submission. We will also follow up on the workup of her adrenal mass. We will see her back next month then for her final visit. Assessment & Plan (03/07/2022 9:28 AM DISTRICT RANGER): Continue small frequent meals. Continue to work with the dietitian and attend the monthly support group meetings. We will see her back next month for her six- month and final visit. Assessment & Plan (02/07/2022 8:41 AM DISTRICT RANGER): The patient has her upcoming appointment with [...] 11/08/2021 Assessment & Plan (03/23/2022 3:30 PM DISTRICT RANGER): Patient on statin - continue treatment per [...] Problem Noted Date Diagnosed Date Resolved Date Postoperative hypothyroidism 07/15/2024 09/03/2024 BMI 45.0-49.9, adult 02/12/2024 025 Assessment & Plan (02/12/2024 10:48 AM DISTRICT RANGER): As above. Body mass index 40.0-44.9, adult (CMS/HCC) 06/05/2023 07/15/2024 Assessment & Plan (05/22/2024 8:43 AM DISTRICT RANGER): We have discussed with the patient ensuring [...] beforehand Assessment & Plan (04/24/2024 8:52 AM DISTRICT RANGER): We have encouraged her to continue protein supplementation. Continue to advance diet as laid out in post bariatric handout. Okay for light duty but no heavy lifting more than 20 lb. Multivitamin, calcium and vitamin-D. We will see her back in 4 weeks. She will call sooner if anything changes. Hyperparathyroidism 06/30/2022 12/03/19 Overview (06/30/2022): Added automatically from request for surgery [id number] Essential hypertension 11/08/202108/15
--- OUTSIDE RECORDS SUMMARY | 2025-02-14 13:51 | XMS_ITS | Encounter Summary ---
Author Organization [facility] Address [address] [place] [address] Care Team Providers Care Meter Reading Clerk Name Role Phone Lyndon Solomon MD Primary Care Provider [phone] Kody Dent DO Primary Care Provider [phone] Bambi Garnett MD Primary Care Provider Encounter Details Date Type Department Care Team (Late st Contact Info) Description 08/31/2018 Abstract [facility] CONVERSION [address] [place] [address] , Generic Conversion, Social History Tobacco Use Types Packs/Day Years Used Date Smoking Tobacco: Every Day Cigarettes 0.5 15 Smokeless Tobacco: Current Alcohol Use Standard Drinks/Week Comments No 0 (1 standard drink = 0.6 oz pur e alcohol) AUDIT-C Answer Date Recorded Frequency of Alcohol Consumption Never 07/31/2018 Average Number of Drinks Not on file 019 Frequency of Binge Drinking Not on file 10/2018 Comments Unknown Sex and Gender Information Value [...] documented as of this encounter Care Teams Meter Reading Clerk Relationship Specialty Start Date End Date Lyndon Solomon MD [address] [place] [id number] PCP - General FAMILY PRACTICE 03/26/17 07/02/19 Kody Dent DO [address] [place] [address] PCP - General FAMILY PRACTICE 07/03/19 12/11/22 Bambi Garnett MD [address] [place] [address] PCP - General 12/12/22 documented as of this encounter
--- OUTSIDE RECORDS SUMMARY | 2025-02-14 13:51 | XMS_ITS | Encounter Summary ---
Author Organization [facility] Healthcare Address [address] [place] [address] Care Team Providers Care Electronic Lab Technician Name Role Phone Elias Hair MD Unavailable [phone] Woody Bradley MD Primary Care Provider [phone] Herman MILNER MD PhD, Kamar Whitman Unavailable Deep Naranjo MD PhD Unavailable [phone] Noemy Parker MD Unavailable Kimberley Olguin MD Unavailable Ximena Palacios NP Unavailable [phone] Encounter Details Date Type Department Care Team (Late st Contact Info) Description 01/19/2025 Results Follow-Up [facility] Medical Group Diabetes and Endocrinology [address] [place] [phone] [place] [address] [facility] [address] [place] [address] TSH, T4, free, T3, free Social History [...] as of this encounter Functional Status * BP Location Answer Date of Assessment Author Left arm 01/19/2025 11:05 AM CDT Sol Langston MA * BP Location Answer Date of Assessment Author Left arm 01/19/2025 11:05 AM CDT Sol Langston MA documented as of this encounter Miscellaneous Notes * Result Encounter Note - Ximena Palacios NP - 01/19/2025 4:32 PM CDT Jefferson Dooley, Good to see you today. Your thyroid labs are in range. No changes at this time. Please continue to take the levothyroxine 125 mcg Sunday-Sunday/ tab on Sunday (since 11/19/24). Please call the office to set up an appointment in 6 months. I'd like to repeat your labs in 3 months; I'll enter them for any [facility] lab. Let me know if you need them sent elsewhere. Please call or send a Kaliki message if any questions. Thank you, Ana Roque documented in this encounter Plan of Treatment Scheduled Orders Name Type Priority Associated Diagnoses Orde r Schedule T3, free Lab Routine Postsurgical hypothyroidism Expected: 04/21/2025 (Approximate), Expires: 01/19/2026 T4, free Lab Routine Postsurgical hypothyroidism Expected: 04/21/2025 (Approximate), Expires: 01/19/2026 TSH Lab Routine Postsurgical hypothyroidism Expected: 04/21/2025 (Approximate), Expires: 01/19/2026 documented as of this encounter Visit Diagnoses Diagnosis Postsurgical hypothyroidism- Primary documented in this encounter Care Teams Electronic Lab Technician Relationship Specialty Start Date End Date Woody Bradley MD [address] [place] [address] PCP - General Family Medicine 06/05/23 Elias Hair MD [address] [facility] [place] [address] Consulting Physician Psychiatry 08/15/22 Kamar Sutton III, MD PhD [address] [place] [address] Radiation Oncologist Radiation Oncology 10/02/23 Deep Naranjo MD PhD [address] [place] [address] Radiation Oncologist Radiation Oncology 10/02/23 [place] [address] [address] Consulting Physician Endocrinology Diabetes & Metabolism 10/02/23 Kimberley Olguin MD [address] [facility] [address] [facility] [place] [address] Surgical Oncologist Surgical Oncology 10/02/23 [place] [address] [address] Nurse Practitioner Endocrinology Diabetes & Metabolism 10/17/24 documented as of this encounter
--- OUTSIDE RECORDS SUMMARY | 2025-02-14 13:51 | XMS_ITS | Encounter Summary ---
Author Organization [facility] Address Formerly [facility] [place] [address] Care Team Providers Care Material Combiner Name Role Phone Lyndon Solomon MD Primary Care Provider [phone] Kody Dent DO Primary Care Provider [phone] Bambi Garnett MD Primary Care Provider Encounter Details Date Type Department Care Team (Late st Contact Info) Description 11/08/2018 Hospital Orders Only [facility] [address] [place] [address] Emile Chacon MD [address] [place] [address] Social History Tobacco Use Types Packs/Day Years [...] documented as of this encounter Care Teams Material Combiner Relationship Specialty Start Date End Date Lyndon Solomon MD [address] [place] [address] PCP - General FAMILY PRACTICE 03/26/17 07/02/19 Kody Dent DO [address] [place] [address] PCP - General FAMILY PRACTICE 07/03/19 12/11/22 Bambi Garnett MD [address] [place] [address] PCP - General 12/12/22 documented as of this encounter
--- OUTSIDE RECORDS SUMMARY | 2025-02-14 13:51 | XMS_ITS | Clinical Summary ---
Author Organization [facility] Medical Office Building B Address [address] [place] [address] Care Team Providers Care Senior Counsel Commercial Name Role Phone Elias Hair MD Unavailable [phone] Woody Bradley MD Primary Care Provider [phone] Herman MILNER MD PhD, Kamar Whitman Unavailable Deep Naranjo MD PhD Unavailable Noemy Parker MD Unavailable Kimberley Olguin MD Unavailable Ximena Palacios NP Unavailable Allergies No known active allergies Medications [...] AND 2 TABLETS EACH EVENING 4 Active famotidine (PEPCID) 20 mg tablet Take 1 tablet (20 mg total) by mouth 2 (two) times a day 60 tablet 11 5 04/17/19 26 Active ondansetron ODT (ZOFRAN-ODT) 4 mg disintegrating tablet DISSOLVE 1 TABLET EVERY 6 HOURS NEEDED 5 Active levothyroxine (SYNTHROID) 125 mcg tabletIndications:P ostsurgical hypothyroidism Take 1 tablet (125 mcg total) by mouth daily 30 tablet 11 5 09/06/19 26 Active Active Problems Problem Noted Date [...] 04/13/2023 Assessment & Plan (02/28/2024 2:13 PM UROLOGY TEACHER): We have had talked with the patient [...] obesity. Assessment & Plan (02/12/2024 10:48 AM UROLOGY TEACHER): Reviwed CT scan. Reviewed ER warning s/s. Mahamed rrepsonse. Referral to Gen surgery for consutlation and evaluationl Dyspepsia 02/12/2024 Assessment & Plan (02/12/2024 10:48 AM UROLOGY TEACHER): WIll refer to GI as patient having [...] changes Assessment & Plan (02/12/2024 10:47 AM UROLOGY TEACHER): Enocurage healthy food choices. Reivweed aerobic exericse [...] was drawn 09/2024. Verified that she uses [employer]. Aware to check results/results letter in [employer]. Will contact by phone if needed. Assessment [...] be drawn today. Verified that she uses [employer]. Aware to check results/results letter in [employer]. Will contact by phone if needed. Assessment & Plan (07/15/2024 3:11 PM CDT): Continues surveillance and observation with endocrine and oncology. WIll monitor response. Assessment & Plan (02/27/2024 3:26 PM UROLOGY TEACHER): Follicular thyroid cancer dx'd 07/11/22. Total thyroidectomy/parathyroidectom 08/02/22 with subsequent TORRES 09/29/22. 10/02/23 whole body scan shows resolution of uptake in previous scan. Continues to follow with Rad/onc; has appt 02/29/24. Will continue with goal of suppressed TSH with normal free T4. Will continue to monitor thyroglobulin. (Not drawn today as was just completed 10/01/23). Assessment & Plan (02/12/2024 10:47 AM UROLOGY TEACHER): COntinue f/u with Dr. Parker, continues on [...] mychart. Aware to check results/results letter in mychart. Will contact by phone if needed. Assessment [...] mychart. Aware to check results/results letter in mychart. Will contact by phone if needed. Assessment & Plan (02/27/2024 4:01 PM UROLOGY TEACHER): Chronic problem. Last TFTs completed 06/2023 by [...] mychart. Aware to check results/results letter in mychart. Will contact by phone if needed. Assessment [...] (04/20/2022): Added automatically from request for surgery [id number] Adrenal incidentaloma 03/23/2022 Assessment & Plan (12/02/2022 2:17 PM CDT): Repeat CT in 6 months Assessment & Plan (03/23/2022 3:30 PM UROLOGY TEACHER): Patient with history of left adrenal mass [...] 11/08/2021 Assessment & Plan (04/04/2022 9:52 AM UROLOGY TEACHER): Patient is set to see psych at the end of the month. That does last thing we are waiting for prior to submission. We will also follow up on the workup of her adrenal mass. We will see her back next month then for her final visit. Assessment & Plan (03/07/2022 9:28 AM UROLOGY TEACHER): Continue small frequent meals. Continue to work with the dietitian and attend the monthly support group meetings. We will see her back next month for her six- month and final visit. Assessment & Plan (02/07/2022 8:41 AM UROLOGY TEACHER): The patient has her upcoming appointment with [...] 11/08/2021 Assessment & Plan (03/23/2022 3:30 PM UROLOGY TEACHER): Patient on statin - continue treatment per PCP Resolved Problems Problem Noted Date Diagnosed Date Resolved Date Postoperative hypothyroidism 07/15/2024 09/03/2024 BMI 45.0-49.9, adult 02/12/2024 01/30/2 025 Assessment & Plan (02/12/2024 10:48 AM UROLOGY TEACHER): As above. Body mass index 40.0-44.9, adult (CMS/HCC) 06/05/2023 07/15/2024 Assessment & Plan (05/22/2024 8:43 AM UROLOGY TEACHER): We have discussed with the patient ensuring [...] beforehand Assessment & Plan (04/24/2024 8:52 AM UROLOGY TEACHER): We have encouraged her to continue protein supplementation. Continue to advance diet as laid out in post bariatric handout. Okay for light duty but no heavy lifting more than 20 lb. Multivitamin, calcium and vitamin-D. We will see her back in 4 weeks. She will call sooner if anything changes. Hyperparathyroidism 06/30/2022 12/03/19 23 Overview (06/30/2022): Added automatically from request for surgery [id number] Essential hypertension 11/08/202108/15 Encounters Date Type Department Care Team Description 01/19/2025 11:30 AM CDT Office Visit [facility] Medical Group Diabetes and Endocrinology [address] [place] [phone] Ximena Palacios NP Postsurgical hypothyroidism (Primary Dx); Follicular thyroid cancer (HCC) 01/19/2025 10:50 AM CDT Lab [address] [address] Postsurgical hypothyroidism 01/19/2025 Results Follow-Up [facility] Diabetes and Endocrinology [address] [place] [phone] Ximena Palacios NP TSH, T4, free, T3, free 12/02/2024 Telephone [facility] Diabetes and Endocrinology [address] [place] [phone] Ximena Palacios NP Appointment/Schedules 11/20/2024 9:00 AM CDT Office Visit [address] [place] [phone] Luciano Beckford MD BMI 36.0-36.9,adult (Primary Dx) 11/19/2024 Results Follow-Up [facility] Diabetes and Endocrinology [address] [place] [phone] Ximena Palacios NP T4, free, T3, free, TSH 11/18/2024 9:25 AM CDT Lab [address] [address] Postsurgical hypothyroidism from Last 3 Months Immunizations Immunization Administration Dates Next Due Influenza, Quadrivalent, Spl it, Intramuscular 01/17/2019,12/25/2017 Influenza, Quadrivalent, Spl it, Preservative Free, Intramuscular 12/09/2015 Influenza, Trivalent, IM (MDV) 01/09/2013 Influenza, Trivalent, Preser vative Free, Intramuscular 02/12/2024,12/24/2014 Influenza, Unspecified 06/05/2023(Deferr ed: Patient Refused),03/26/2023(Deferred: Patient Refused),03/26/2023(Deferred: Patient Refused),03/26/2022(Deferred: Patient Refused),12/09/2015 Pneumococcal Polysaccharide PPV23 01/09/2013 TD Preservative Free [...] Anxiety Depression Thyroid disease Kidney stone Diabetes resolved with wt loss Essential hypertension 11/08/2021 [...] Sign Reading Time Taken Comments Blood Pressure 126/86 01/19/2025 11:05 AM CDT Pulse 86 01/19/2025 11:05 AM CDT Temperature 36.2 C (97.1 F) 11/20/2024 9:10 AM CDT Respiratory Rate 18 01/19/2025 11:05 AM CDT Oxygen Saturation 96% 11/20/2024 9:10 AM CDT Inhaled Oxygen Concentration - - Weight 79.2 kg (174 lb 8 oz) 01/19/2025 11:05 AM CDT Height 162.6 cm (5' 4.02) 01/19/2025 11:05 AM C DT Body Mass Index 29.94 01/19/2025 11:05 AM CDT Plan of Treatment Health Maintenance Due Date Last Done Comments Colon Cancer Screening-Colonoscopy 1977 Hepatitis C Screening 1975 Hepatitis B Screening 09/08/1995 Regular Well Visit/Exam 18-64 09/08/1995 DTaP/Tdap/Td Vaccine (1 - Tdap) 12/10/2016 12/09/2016 Covid-19 Vaccine (3 - season) 2024 04/26/2021, 06/30/2020 Influenza Vaccine (#1) 2024 , 01/17/2019, 12/25/2017, Additional history exists Breast Cancer Screening-Mammogram 02/28/2025 02/29/2024, 01/25/2022, 10/07/2019 Depression Screening 07/15/2025 07/15/2024, 02/12/2024, 01/15/2024, Additional history exists Pneumococcal vaccine <65 Aged Out 01/09/2013 No longer eligible based on patient's age to complete this topic Procedures Procedure Name Priority Date/Time Associated Diagnosis Comments T3, FREE Routine 01/19/2025 10:55 AM CDT Postsurgical hypothyroidism T4, FREE Routine 01/19/2025 10:55 AM CDT Postsurgical hypothyroidism TSH Routine 01/19/2025 10:55 AM CDT Postsurgical hypothyroidism TSH Routine 11/18/2024 9:29 AM CDT Postsurgical hypothyroidism T3, FREE Routine 11/18/2024 9:29 AM CDT Postsurgical hypothyroidism T4, FREE Routine 11/18/2024 9:29 AM CDT Postsurgical hypothyroidism SCREENING MAMMOGRAM BILATERAL W CYRUS Schedule Routine, Read Routine (OP Routine) 02/29/2024 11:02 AM UROLOGY TEACHER Screening mammogram, encounter for from Last 3 Months or Most Recently Relevant to Health Maintenance Results * T3, free (01/19/2025 10:55 AM CDT) Free T3 2.2 2.0 - 4.4 pg/mL Blood 01/19/2025 10:5 5 AM CDT 01/19/2025 2:41 PM CDT us Ximena Palacios RN IMAGING LAB BLOOD ORDERABLES Chana l Result Performing Organization Address [facility] Co de Phone Number [address] [place] [address] * TSH (01/19/2025 10:55 AM CDT) Thyroid Stimulating Hormone 1.52 0.30 - 4.20 mcIUnit/mL Blood 01/19/2025 10:5 5 AM CDT 01/19/2025 2:41 PM CDT us Ximena Palacios RN IMAGING LAB BLOOD ORDERABLES Chana l Result Performing Organization Address [facility] Co de Phone Number [address] [place] [address] * T4, free (01/19/2025 10:55 AM CDT) Free T4 1.19 0.90 - 1.70 ng/dL Blood 01/19/2025 10:5 5 AM CDT 01/19/2025 2:41 PM CDT us Ximena Palacios RN IMAGING LAB BLOOD ORDERABLES Chana l Result Performing Organization Address [facility] Co de Phone Number [address] [place] [address] * T3, free (11/18/2024 9:29 AM CDT) Free T3 2.2 2.0 - 4.4 pg/mL Blood 11/18/2024 9:29 AM CDT 11/18/2024 11:11 AM CDT us Ximenamariella Palacios RN IMAGING LAB BLOOD ORDERABLES Chana l Result Performing Organization Address [facility] Co de Phone Number DANIEL [address] [address] * (ABNORMAL) TSH (11/18/2024 9:29 AM CDT) Thyroid Stimulating Hormone 0.10(L) 0.30 - 4.20 mcIUnit/mL Blood 11/18/2024 9:29 AM CDT 11/18/2024 11:11 AM CDT us Ximenamariella Palacios RN IMAGING LAB BLOOD ORDERABLES Chana l Result Performing Organization Address [facility] de Phone Number DANIEL [address] [place] [address] * (ABNORMAL) T4, free (11/18/2024 9:29 AM CDT) Free T4 1.73(H) 0.90 - 1.70 ng/dL Blood 11/18/2024 9:29 AM CDT 11/18/2024 11:11 AM CDT us Ximenamariella Palacios RN IMAGING LAB BLOOD ORDERABLES Chana l Result Performing Organization Address [facility] Co de Phone Number HALLEY[address] [address] * Screening Mammogram Bilateral W Cyrus (02/29/2024 11:02 AM UROLOGY TEACHER) Anatomical Region Laterality Modality Breast Bilateral Mammography Narrative 03/03/2024 12:13 PM UROLOGY TEACHER Mammogram Technique: Bilateral Digital Breast Tomosynthesis, Bilateral C-view 2D Screening mammogram. Views obtained: bilateral craniocaudal and bilateral mediolateral oblique. Computer Aided Detection was performed. Mammogram Findings: The present examination has been compared to prior imaging studies performed at [facility] on 10/07/2019 and 01/25/2022. There [...] compared to prior imaging studies performed at [facility] on 10/07/2019 and 01/25/2022. There [...] Recently Relevant to Health Maintenance [place] [address] [facility] MEDICARE MEDICARE Advance Directives For more information, please contact: [phone] * Full Code (Latest Code Status on File) Date Activated Date Inactivated Comments 04/16/2024 11:29 AM 04/17/2024 6:34 PM * Full Code Date Activated Date Inactivated Comments 08/02/2022 6:51 PM 08/03/2022 2:32 PM * Full Code Date Activated Date Inactivated Comments 05/02/2022 11:53 AM 05/02/2022 6:21 PM * Full Code Date Activated Date Inactivated Comments 05/02/2022 11:53 AM 05/02/2022 11:53 AM Care Teams Senior Counsel Commercial Relationship Specialty Start Date End Date Woody Bradley MD [address] [place] [address] PCP - General Family Medicine 06/05/23 Elias Hair MD [address] [facility] [place] [address] Consulting Physician Psychiatry 08/15/22 Kamar Sutton III, MD PhD [address] [place] [address] Radiation Oncologist Radiation Oncology 10/02/23 Deep Naranjo MD PhD [address] [place] [address] Radiation Oncologist Radiation Oncology 10/02/23 [place] [address] [address] [id number] Consulting Physician Endocrinology Diabetes & Metabolism 10/02/23 Kimberley Olguin MD [address] [place] [address] Surgical Oncologist Surgical Oncology 10/02/23 Ximena Palacios RN IMAGING [address] [address] [address] Nurse Practitioner Endocrinology Diabetes & Metabolism 10/17/24
--- OUTSIDE RECORDS SUMMARY | 2025-02-14 13:51 | XMS_ITS | Encounter Summary ---
Author Organization [facility] Address [facility]ly [facility] [place] [address] Care Team Providers Care Simulation Analyst Name Role Phone Bambi Garnett MD Primary Care Provider Encounter Details Date Type Department Care Team (Late st Contact Info) Description 12/13/2022 [employer] Message Enc [address] [phone] Nazia Barrett, [facility] [address] [place] [phone] Visit Follow Up Social History Tobacco Use Types Packs/Day Years Used Date Smoking Tobacco: Former Cigarettes Q uit: 08/30/2003 Smokeless Tobacco: Never Alcohol Use Standard Drinks/Week Comments No 0 (1 standard drink = 0.6 oz pur e alcohol) AUDIT-C Answer Date Recorded Frequency of Alcohol Consumption Never 07/31/2018 Average Number of Drinks Not on file 019 Frequency of Binge Drinking Not on file 10/2018 Comments No Sex and Gender Information Value Date Recorded Sex Assigned at Not on file Legal Sex Female 8:31 PM CDT Gender Identity Not on file Sexual Orientation Not on file documented as of this encounter Plan of Treatment Not on file documented as of this encounter Visit Diagnoses Not on filedocumented in this encounter Care Teams Simulation Analyst Relationship Specialty Start Date End Date Bambi Garnett MD [address] [place] [address] PCP - General 12/12/22 documented as of this encounter
--- OUTSIDE RECORDS SUMMARY | 2025-02-14 13:51 | XMS_ITS | Data Portability ---
Author Organization [place] [facility] autoContract - [facility] Address [address] [place] [address] Assessment Encounter Date Assessment Date Assessment LastModified by Organization Details LastModified Time 01/26/2023 01/26/2023 Pt here with below diagnosis - pt here for evaluation for their condition, evaluation of their medication use, and discussion for alternative treatments. [email or web address] Not available 01/26/2023 11:15:20 01/29/2023 01/29/2023 Patient was seen today for follow up visit. We discussed patients future use of MMJ. We discussed the risks and benefits. Pt understands that we will certify patient, but the recommendation does not constitute a prescription for medical cannabis. Patient will receive an email from us with instructions on how to proceed by the evening of the next business day. The documentation details a telehealth encounter with the patient on this date of service. Audio and video communications were used during this encounter to provide a [id number] interactive encounter. Components of this encounter are a culmination of visual and patient-assisted findings. [email or web address] Not available 01/29/2023 11:46:14 Plan of Treatment Reminders Order Date Submit Date Provider Last Modified By Organization Details Last Modified Time Details Appointments None record ed. Lab None record ed. Referral None record ed. Procedures None record ed. Surgeries None record ed. Imaging None record ed. Medication Orders None record ed. Patient TargetsNo targets recorded. Patient Instructions Encounter Date Encounter Id Patient Instructions Last Modified By Organization Details Last Modified Time 01/26/2023 [id number] thyroidectomy: before your surgery [email or web address] Not available 01/26/2023 11:15:44 I have discussed the risks and benefits of Medical Marijuana. Pt understands I am not prescribing this medication. I am certifying that this patient has a condition that is recognized by the state as qualifying for medical marijuana and this recommendation does not constitute a prescription for medical cannabis. Pt understands that my physician written certification form does not guarantee Medical Marijuana certification nor does it endorse the patient as needing medical marijuana. Patient understands that Medical Marijuana is a drug that the federal government has classified cannabis as a Schedule I controlled substance. Schedule 1 substances are defined, in part, as having (1) a high potential for abuse; (2) no currently accepted medical use in treatment in the [place]; and (3) a lack of accepted Safety for use under medical supervision. Federal law prohibits the manufacture, distribution and possession of cannabis even in states, which have modified their state laws to treat cannabis as a medicine. Pt also agrees that me, and the [facility] are my treating physicians and that we are in charge of treating the patient's conditions and that the patient will make a good justyn effort to remain under my treatment plan and acknowledge there will be follow up visits from this date forward to monitor the patient's condition. Discussed risks and benefits of Medical Marijuana. I have spent time discussing the patients condition, pain/medical management of the patient given their debilitating condition, the risks and benefits of this medication, a history and physical, gathering old medical records to look at the disease processes being evaluated, and answering of all questions. Attending Attestation Note I reviewed the chart and I agree with PA note and management plan. I was available via text/email/phone/Ogin during the patient's evaluation. I reviewed the patient's pertinent studies (labs/x-rays/EKG/e tc.). Not available 01/29/2023 01:44:01 01/29/2023 [id number] I have discussed the risks and benefits of Medical Marijuana. Pt understands I am not prescribing this medication. I am certifying that this patient has a condition that is recognized by the state as qualifying for medical marijuana and this recommendation does not constitute a prescription for medical cannabis. Pt understands that my physician written certification form does not guarantee Medical Marijuana certification nor does it endorse the patient as needing medical marijuana. Patient understands that Medical Marijuana is a drug that the federal government has classified cannabis as a Schedule I controlled substance. Schedule 1 substances are defined, in part, as having (1) a high potential for abuse; (2) no currently accepted medical use in treatment in the [place]; and (3) a lack of accepted Safety for use under medical supervision. Federal law prohibits the manufacture, distribution and possession of cannabis even in states, which have modified their state laws to treat cannabis as a medicine. Pt also agrees that me, and the [facility] Team are my treating physicians and that we are in charge of treating the patient's conditions and that the patient will make a good justyn effort to remain under my treatment plan and acknowledge there will be follow up visits from this date forward to monitor the patient's condition. Discussed risks and benefits of Medical Marijuana. I have spent time discussing the patients condition, pain/medical management of the patient given their debilitating condition, the risks and benefits of this medication, a history and physical, gathering old medical records to look at the disease processes being evaluated, and answering of all questions. Attending Attestation Note I reviewed the chart and I agree with PA note and management plan. I was available via text/email/phone/Ogin during the patient's evaluation. I reviewed the patient's pertinent studies (labs/x-rays/EKG/e tc.). Not available 01/31/2023 03:36:17 Reason for Referral None Reported. Medical Equipment None Reported. Allergies No known drug allergies Medications Name Sig Start Date Stop Date Status Note LastModified by Organization Details LastModified Time atorvastatin 40 mg tablet TAKE 1 TABLET BY MOUTH EVERY DAY active Not Available Not Available No t Available levothyroxine 137 mcg tablet TAKE 1 TABLET (137 MCG TOTAL) BY MOUTH FORESTRY CREW CHIEF BEFORE BREAKFAST active Not Available Not Available No t Available calcium 500 mg (as calcium carbonate 1,250 mg) tablet TAKE 1 TABLET (1,250 MG TOTAL) BY MOUTH EVERY 8 (EIGHT) HOURS active Not Available Not Available No t Available Mapap (acetaminophe n) 500 mg capsule TAKE 2 CAPSULES (1,000 MG TOTAL) BY MOUTH EVERY 6 HOURS active Not Available Not Available No t Available dexamethasone 1 mg tablet TAKE 1 TABLET AT 11 PM THE NIGHT BEFORE LAB TESTS active Not Available Not Available No t Available levothyroxine 150 mcg tablet TAKE 1 TABLET BY MOUTH DAILY AT 0630 active Not Available Not Available No t Available levothyroxine 200 mcg tablet TAKE 1 TABLET (200 MCG TOTAL) BY MOUTH DAILY BEFORE BREAKFAST active Not Available Not Available No t Available lorazepam 1 mg tablet TAKE 1 TABLET BY MOUTH THREE TIMES A DAY NEEDED FOR 90 DAYS active Not Available Not Available No t Available ondansetron 4 mg disintegratin g tablet TAKE 2 TABLETS BY MOUTH EVERY 8 HOURS NEEDED FOR NAUSEA OR VOMITING. active Not Available Not Available No t Available calcitriol 0.25 mcg capsule TAKE 1 CAPSULE (0.25 MCG TOTAL) BY MOUTH 2 (TWO) TIMES A DAY FOR 7 DAYS active Not Available Not Available No t Available lamotrigine 100 mg tablet TAKE 1 TABLET BY MOUTH EVERY DAY active Not Available Not Available No t Available prazosin 2 mg capsule TAKE 1 CAPSULE EVERY NIGHT AT BEDTIME active Not Available Not Available No t Available oxycodone 5 mg tablet TAKE 1 TABLET (5 MG TOTAL) BY MOUTH EVERY 4 (FOUR) HOURS NEEDED FOR PAIN active Not Available Not Available No t Available topiramate 50 mg tablet TAKE 1 TABLET EACH MORNING AND 2 TABLETS EACH EVENING active Not Available Not Available No t Available nitrofurantoi n monohydrate/m acrocrystals 100 mg capsule TAKE 1 CAPSULE BY MOUTH EVERY 12 HOURS FOR 5 DAYS WITH MEAL active Not Available Not Available No t Available Senexon-S 8.6 mg-50 mg tablet TAKE 1 TABLET BY MOUTH 2 TIMES A DAY NEEDED FOR CONSTIPATI ON. active Not Available Not Available No t Available Paxlovid 300 mg (150 mg x 2)-100 mg tablets in a dose pack TAKE 2 TABLETS (NIRMATREL VIR) AND TAKE 1 TABLET (RITONAVIR ) BY MOUTH TWICE A DAY FOR 5 DAYS active Not Available Not Available No t Available Vitals None Recorded Social History None recorded. Functional Status None recorded. Mental Status None recorded. Family History Nothing Reported. Medical History No medical history recorded. Gynecological HistoryNo gynecological history recorded. Obstetrics History GPAL:G 0 P 0 0 0 0 Past Encounters Encounter ID Performer Location Encounter Start Date Encounter Closed Date Diagnosis/Indication Diagnosis SNOMED-CT Code Diagnosis ICD10 Code Diagnosis IMO Codes Diagnosis Note [id number] Jaylan Miramontes MD [facility] [address] [place] [address],[address] [place] [address] 01/26/2023 11:10:14 01/26/2023 11:32:36 Malignant neoplasm of thyroid gland [id number] C73 [id number] [facility] [address] [place], [place] [address] [place] [address] 01/29/2023 11:35:38 01/29/2023 11:46:27 Malignant neoplasm of thyroid gland [id number] C73 Health Concerns Section Related Observation LastModified by Organization Detai ls LastModified Time None Recorded Concern Status LastModified by Organization Details LastModified Time None Recorded Advance Directives Directive None Recorded Payers Insurance Date Sequence Insurance Name Policy Number Policy Lopez Covered Member ID Lopez Member ID Guarantor Name 01/26/2023 1 [place] Soumya Vigil Michellerenetta [id number] Soumya Fuller 02/15/2023 2 [place] [facility] Soumya Alina [id number] Soumya Fuller Notes Date Note Type Note Provider Name and Address Organization Details Recorded Time 01/26/2023 text/html ROS as noted in the HPI The patient would like to discuss medications, the disease, and how to handle it. Pt would also like to discuss alternative treatments to this condition. Pt was referred here for further evaluation and treatment if necessary. Patient has a diagnosis of qualifying condition -THYROID NEOPLASM Jaylan Miramontes MD [address], [address], [place], [address], [facility] 01/29/2023 01:44:05 01/29/2023 text/html ROS as noted in the HPI The patient would like to discuss medications, the disease, and how to handle it. Pt would also like to discuss alternative treatments to this condition. Pt was referred here for further evaluation and treatment if necessary. Patient has a diagnosis of qualifying condition - malignant tumor thyroid gland Pt here for 2nd visit to discuss condition and develop a relationship. We discussed the above and future use of medical marijuana. Jaylan Miramontes MD [address], [address], [place], [address], [facility] 01/31/2023 03:36:20 OBGyn Episode No OBEpisode recorded.
[2025-02-14 13:57] VITALS: BP 123/70; PULSE 74; RESP 18; TEMP 36.8; O2SAT 100
--- NOTE | 2025-02-14 14:17 | ED_ITS ---
HPI - Fall General Chief Complaint: Wound/Laceration Stated Complaint: fall Patient presents to the [facility] with complaints of continued pain to tailbone that began 1 week ago after a fall onto buttocks. Patient noted she has been trying heating pad, ice, Tylenol, ibuprofen with minimal relief of symptoms. No significant worsening of symptoms, difficulty with bowel movements, urinary symptoms, numbness, or tingling. Denies any known bruising or redness to the area. Related Data Home Medications ?Medication ?Instructions ?Recorded ?Confirmed ?Last Taken ?Type lamotrigine 100 mg tablet 100 mg PO DAILY 02/16/2010/1510/25/22 History prazosin 2 mg capsule 2 mg PO HS 02/16/20 01/30/23 10/25/22 History topiramate 50 mg tablet 50 mg PO DAILY 07/31/2110/1510/25/22 History topiramate 50 mg tablet 100 mg PO HS 07/31/2110/25/22 History lorazepam 1 mg tablet 1 mg PO TID PRN Anxiety 06/1501/30/23 10/25/22 History Allergies Allergy/AdvReac Type Severity Reaction Status Date / Time acetaminophen (From [place]) AdvReac Mild Other Verified 02/14/25 13:59 hydrocodone (From [place]) AdvReac Mild Other Verified 02/14/25 13:59 Review of Systems Constitutional: Constitutional: Reports as per HPI, Denies chills, Denies fatigue, Denies fever(s) and Denies weakness Eyes: Eyes: Reports no additional eye complaints Cardiovascular: Cardiovascular: Reports no additional cardiovascular complai nts Respiratory: Respiratory: Reports no additional respiratory complaints Gastrointestinal: Gastrointestinal: Reports as per HPI, Denies abdominal pain, Denies diarrhea, Denies nausea and Denies vomiting Genitourinary: Genitourinary: Reports as per HPI, Denies nocturia, Denies dysuria, Denies pelvic pain, Denies flank pain and Denies urinary incontinence Musculoskeletal: Musculoskeletal: Reports as per HPI, Reports back pain, Denies joint swelling and Reports muscle cramps Integumentary/Breasts: Skin/Breast: Reports as per HPI, Denies erythema, Denies rash and Denies skin ulcer Neurologic: Reports as per HPI, Denies numbness and Denies weakness Psychiatric: Psychiatric: Reports no additional psychiatric complaints Endocrine: Endocrine: Reports no additional endocrine complaints Hematologic/Lymphatic: Hematologic/Lymphatic: Reports no additional hematologic/lymphatic complaints Allergic/Immunologic: Allergic/Immunologic: Reports no additional allergic/immunologic complaints PMFSH Past Medical History Medical History Hypertension Depression with anxiety Thyroid cancer radioactive iodine Colon cancer screening Abnormal WBC count Adrenal Mass Abnormal CT scan, colon Obesity History of TIA (transient ischemic attack) HLD (hyperlipidemia) Affective bipolar disorder Surgical History Surgical History S/P ORIF (open reduction internal fixation) fracture Right knee to ankle Hx of thyroidectomy H/O inguinal hernia repair History of appendectomy H/O: hysterectomy Hx of tonsillectomy Hx of rotator cuff surgery Family History Family History Mother Hypertension Other Unknown family medical history Social History Social History Social History: The patient is and disabled. She is a former smoker. Code status full code Smoking packs per day: 0.5 Smoking cigarettes per day: 10.0 Years smoked: 15 Smoking pack-years: 7.50 Smoking status: Former smoker Tobacco type: cigarettes Second hand tobacco smoke exposure: Yes Additional smoking assessment comments: Quit 2019 Alcohol intake: never Substance use: never Substance use type: does not use Lack of Transportation: No Lack of Food: Never True Current Housing: I Have Housing Concerned About Future Housing: No Difficulty Paying Gas/Electric Bills: No Difficulty Paying for Meds: No Currently Unemployed: No Education: High School Diploma/GED Difficulty w/ Childcare or Family Care: No Living arrangements: with family Additional living arrangements comments: . 3 children. Occupation/Education: other Additional occupation/education comments: On disability. Gender identity (if verbalized by the patient): Female Sexual Orientation (if Verbalized by the Patient): Straight or Heterosexual Spiritual care concerns: No Exam Const: General: healthy appearing and no acute distress Nutritional Appearance: well nourished Orientation/consciousness: patient oriented x3 Limitations: no limitations Resp: Effort & Inspection: normal respiratory effort Auscultation: clear to auscultation bilaterally Cardio: Rate: regular rate Rhythm: regular rhythm Back/Spine/Pelvis: Back: no CVA tenderness Other: Minimal sacral tenderness. No swelling, ecchymosis, or erythema noted. no paraspinal muscle tenderness. No spasms noted Skin: General skin exam: normal color Rashes: no rashes Wounds: no wounds Neuro: General: patient oriented x3 and moves all extremities Speech: normal speech Gait exam (Neuro): Normal gait present Extrem: General: normal to inspection, no clubbing, cyanosis or edema and no pedal edema Psych: Mental Status: mental status grossly normal Affect: normal affect Attitude: cooperative Course Course Level of Care: Express Care Visit Vital Signs Vital signs: Vital Signs Temperature 98.3 F 02/14/25 13:57 Pulse Rate 74 02/14/25 13:57 Respiratory Rate 18 02/14/25 13:57 Blood Pressure 123/70 02/14/25 13:57 Pulse Oximetry 100 02/14/25 13:57 Oxygen Delivery Room Air 02/14/25 13:57 Temperature 98.3 F 02/14/25 13:57 Pulse Rate 74 02/14/25 13:57 Respiratory Rate 18 02/14/25 13:57 Blood Pressure 123/70 02/14/25 13:57 Pulse Oximetry 100 02/14/25 13:57 Oxygen Delivery Room Air 02/14/25 13:57 MDM - Fall MDM Narrative Medical decision making narrative: x-rays ordered. Patient intolerant pain medications. Spoke about muscle relaxers and she has tolerated these well. The patient was evaluated by myself [facility]. History is obtained from patient who is an independent historian and physical exam was performed. Available medical records were reviewed at this time. Exam findings show no acute concerns or changes; patient is non-toxic appearing and is in no distress. Patient is appropriate for outpatient treatment and follow-up. I have evaluated and discussed social determinants of health with the patient that could potentially impact subsequent diagnosis and treatment plans. Differential diagnosis and treatment plan were discussed with the patient. Patient agrees with discussion and after shared medical decision making agrees with plan of care. All questions were answered to the patient's satisfaction. Differential Diagnosis Differential diagnosis: Likely compression fracture and other ( Contusion sacrum, fracture sacrum) Medical Records Attestation: I reviewed the patient's medical records. Imaging Data Attestation: I personally reviewed and interpreted this imaging study as follows: My impression: no fracture noted Radiologist's impression: Impression: No acute fracture or malalignment. Reviewed, dictated and finalized at location [facility]. [facility] MACHINE SET UP OPERATOR TOOL Discharge Plan Discharge Clinical Impression: Contusion of sacrum Patient Disposition: Home Condition: Stable Instructions: Antibiotic Form, Contusion in Adults (ED) Additional Instructions: your x-rays are negative for fracture abnormality [facility] today. take the steroids as directed this will help with pain and inflammation. take ibuprofen or naproxen as directed consistently this will help with inflammation. May use the muscle relaxers as needed this can make you drowsy do not drive, drink alcohol or operate heavy machinery while taking this medication. Follow-up with primary care physician within the next week if symptoms not improved if you notice any significant numbness, tingling, weakness, or neck pain follow-up with emergency room for immediate evaluation. Patient Language: Icelandic Prescriptions: New methocarbamol 750 mg tablet 750 mg PO TID Qty: 30 0RF methylprednisolone [Medrol (Jem)] 4 mg tablets,dose pack See Rx Instructions .ROUTE .COMPLEX Qty: 21 0RF Rx Instructions: for 6 days No Action lamotrigine 100 mg tablet 100 mg PO DAILY prazosin 2 mg capsule 2 mg PO HS topiramate 50 mg tablet 50 mg PO DAILY topiramate 50 mg tablet 100 mg PO HS lorazepam 1 mg tablet 1 mg PO TID PRN (Reason: Anxiety) levothyroxine [Synthroid] 150 mcg Tablet 150 mcg PO DAILY@0630 Qty: 30 0RF atorvastatin 40 mg tablet See Rx Instructions .ROUTE .COMPLEX Qty: 90 3RF Dose Instruction: TAKE 1 TABLET BY MOUTH EVERY DAY Rx Instructions: TAKE 1 TABLET BY MOUTH EVERY DAY Follow-up/Referrals: Kirk,Woody Alfaro M.D. [Primary Care Provider] Time of Disposition: 14:41
== END 2025-02-14 14:44 | disposition home or self-care (01) ==
PROVIDERS: Emergency Provider Nurse Practitioner Family; PCP Family Medicine
DX: S30.0XXA Contusion of lower back and pelvis, initial encounter (principal); W19.XXXA Unspecified fall, initial encounter; I10 Essential (primary) hypertension; E78.5 Hyperlipidemia, unspecified; E66.9 Obesity, unspecified; Z68.29 Body mass index [BMI] 29.0-29.9, adult; E89.0 Postprocedural hypothyroidism; F31.9 Bipolar disorder, unspecified; F41.9 Anxiety disorder, unspecified; Z86.73 Personal history of transient ischemic attack (TIA), and cerebral infarction without residual deficits; Z85.850 Personal history of malignant neoplasm of thyroid; Z87.891 Personal history of nicotine dependence
CPT/HCPCS: 72220; 99213; G0463